=== PATIENT | female | born 1990 | race Hispanic/Latino ===

== ENCOUNTER 2024-12-16 23:21 | Inpatient (IN) | payer MEDICARE, MEDICAID ==
[~2024-12-16] VITALS: Ht 127 cm; Wt 33.6 kg
--- NOTE | 2024-12-16 23:42 | ERN ---
General Chief Complaint: Shortness of Breath Stated Complaint: LOW OXYGEN SATURATIONS Time Seen by MD: 23:23 History of Present Illness Initial Comments Patient comes in with complaint of increasing O2 requirements at baseline to keep her sats up along with runny nose and congestion along with nausea and vomiting and diarrhea for the last two days. Said about two episodes of loose stools low with vomiting for the last two days. Also started having runny nose. Patient has a trach as is dependent on O2 and the vent. Currently on setting of rate of 12, tidal volume of 313/5 pressure support. Typically she uses 3.5 on oxygen concentrator, but today needed to go to 6 L on continuous oxygen to keep her sats in the 90s. Otherwise would drops of the 80s. Patient has Manisha congenital muscular dystrophy. Has been on the vent with a trach since childhood. Wheelchair-bound. Currently does not have a G-tube although has needed to have in the past. No sick contacts. Presents with mom and grandmother. The patient does use Xopenex TID and Pulmicort b.i.d.. Last use Xopenex about 4 hours ago. Allergies: Coded Allergies: No Known Drug Allergies (Unverified Allergy, Unknown, 12/16/24) ROS Dictation Ten systems reviewed and negative except as noted in HPI Physical Exam Physical Exam Dictation GEN: non toxic, wheelchair-bound. Trach. On and. HEENT: atrumatic, PERRL, EOMI, conjunctivae normal NECK: Soft supple nontender Heart RRR, no murmurs Chest: No deformity Lungs: Lungs coarse Ab: Soft nondistended nontender Back: No midline step-offs. : m/s: Four extremities are atrophied. No significant pitting edema in the lower extremities. Psych: Cooperative IVF Sepsis Management IVF Sepsis Management BMI >30kg/m2?: No Sepsis IVF contraindications?: 30cc/kg Results Laboratory and Microbiology Lab and Micro Result Laboratory Tests Test 12/16/24 23:48 12/16/24 23:49 Influenza Type A Antigen Negative For Type A Influenza Type B Antigen Negative For Type B Respiratory Syncytial Virus Rapid negative (NEGATIVE) SARS-CoV-2, RNA, NAAT NEGATIVE SARS CoV-2 White Blood Count 18.5 K/uL (4.8-10.8) H Red Blood Count 4.03 MIL/uL (4.00-5.50) Hemoglobin 12.2 g/dL (12.0-16.0) Hematocrit 39.2 % (36-48) Mean Corpuscular Volume 97.3 fL (79-99) Mean Corpuscular Hemoglobin 30.3 pg (27.0-33.0) Mean Corpuscular Hemoglobin Concent 31.1 g/dL (32.0-36.0) L Red Cell Distribution Width 14.1 % (11.0-15.5) Platelet Count 189 K/uL (130-400) Mean Platelet Volume 11.2 fL (7.5-10.5) H Immature Granulocyte % (Auto) 0.6 % (0-1) Neutrophils (%) (Auto) 88.0 % (40.0-77.0) H Lymphocytes (%) (Auto) 4.4 % (21.0-51.0) L Monocytes (%) (Auto) 6.8 % (3.0-13.0) Eosinophils (%) (Auto) 0.0 % (0.0-8.0) Basophils (%) (Auto) 0.2 % (0.0-5.0) Neutrophils # (Auto) 16.3 K/uL (1.8-7.7) H Lymphocytes # (Auto) 0.8 K/uL (1.0-4.8) L Monocytes # (Auto) 1.3 K/uL (0.1-1.0) H Eosinophils # (Auto) 0.00 K/uL (0.00-0.70) Basophils # (Auto) 0.03 K/uL (0.00-0.20) Absolute Immature Granulocyte (auto 0.11 K/uL (0-1) Nucleated Red Blood Cells 0.0 % (0.0-0.19) White Cell Morphology Comment See comments Sodium Level 130 mmol/L (136-145) L Potassium Level 2.7 mmol/L (3.5-5.1) *L Chloride Level 88 mmol/L (101-111) *L Carbon Dioxide Level 39 mmol/L (21-32) H Blood Urea Nitrogen 9 mg/dL (7-18) Creatinine 0.1 mg/dL (0.5-1.0) L Glomerular Filtration Rate Calc 185 mL/min (>90) Random Glucose 92 mg/dL (70-105) Lactic Acid Level 0.9 mmol/L (0.8-2.5) Total Calcium 9.3 mg/dL (8.5-10.1) Total Bilirubin 0.7 mg/dL (0.2-1.0) Aspartate Amino Transf (AST/SGOT) 12 U/L (10-37) Alanine Aminotransferase (ALT/SGPT) 13 U/L (12-78) Alkaline Phosphatase 86 U/L (50-136) Troponin I High Sensitivity 14 ng/L (4-50) B-Type Natriuretic Peptide 98 pg/mL (0-100) Total Protein 7.6 g/dL (6.0-8.3) Albumin 2.8 g/dL (3.5-5.0) L Procalcitonin 1.66 ng/mL (0.05-0.5) H Serum Test, Qualitative NEGATIVE (NEGATIVE) Labs Reviewed?: Yes EKG/XRAY/US/CT/MRI EKG Comment Sinus tachycardia 124 [place] 149 QRS of 74 QTC of 388 normal axis QRS complexes narrow early R-wave transition nonspecific STT wave changes. Interpretation abnormal X-RAY Comment ADDENDUM: Results were shared by telephone at 02:16 am EST on 12-17-24 and acknowledged by SAPPHIRE Benson. /[place] EXAM: CR Chest, 1 view CLINICAL HISTORY: Shortness of breath. COMPARISON: None provided. FINDINGS: Suboptimal evaluation due to severe scoliosis and patient's positioning. A tracheostomy tube is in place. Generalized right lung volume loss. Moderate pleural effusion on the right side with questionable air-fluid level. Questionable air-filled cystic changes in the right mid to lower zones. Left perihilar airspace disease. The cardiac size is within normal limits. No acute osseous abnormality. Degenerative osseous changes. IMPRESSION: Suboptimal evaluation due to severe scoliosis and the patient's positioning. A tracheostomy tube is in place. Generalized right lung volume loss. Moderate pleural effusion on the right side with questionable air-fluid level is concerning for hydropneumothorax. Questionable air-filled cystic changes in the right mid to lower zones. Left perihilar airspace disease. Recommend a noncontrast CT scan of the chest for further evaluation. /[place] MDM Multiple differentials considered. That is swabs and labs and x-ray. I did discuss with pharmacist we do not have Xopenex. Family brought her own. We will use their Xopenex and Atrovent here On chest x-ray patient looks like she has left the pneumonia in the right pleural effusion. She does have an elevated white count. She has a chronic vent. As such I did put her on cefepime and azithromycin. We will also do a CT for further delineation of known thoracic pathology. Patient will be admitted to ICU to hospitalist. ED Course Orders Procedure Category Date Status Time B-Type Natriuretic LAB 12/16/24 Complete Peptide 23:36 Covid Rna Naat LAB 12/16/24 Complete 23:36 Influenza Type A & B, LAB 12/16/24 Complete Rapid 23:36 Cbc With Differential LAB 12/16/24 Complete 23:36 Comprehensive LAB 12/16/24 Complete Metabolic Panel 23:36 RSV LAB 12/16/24 Complete 23:36 Lactic Acid LAB 12/16/24 Complete 23:36 Procalcitonin LAB 12/16/24 Complete 23:36 Troponin I High LAB 12/16/24 Complete Sensitivity 23:36 Chest 1vw RAD 12/16/24 Resulted 23:36 12 Lead Ekg Tracing- EKG 12/16/24 Logged Technical 23:36 Albuterol 0.083% PHA 12/17/24 Complete 2.5mg/3ml (Proventil 00:00 Ipratropium 0.5 PHA 12/17/24 Complete Mg/2.5 Ml Inh 00:00 Respiratory RT 12/17/24 Transmitted Communication 00:00 Blood Cult CHRIS 12/17/24 In Process 01:01 Lactated Ringers PHA 12/17/24 In Process 1000ml (Lactated 01:30 Potassium Chloride PHA 12/17/24 In Process 20meq/100ml ([place] 01:30 Ct Chest Pe Protocol CT 12/17/24 Logged Wwo Cont 01:01 Cefepime Hcl 1 Gm PHA 12/17/24 Complete Vial (Maxipime 1 Gm Vi 01:30 Azithromycin 500mg+Ns PHA 12/17/24 Complete 250ml (Azithromyci 01:30 Testing, LAB 12/17/24 Complete Serum Hcg 01:15 Edm Admit Bridge Order ADM 12/17/24 Transmitted 01:33 Current Medications Medications (Trade) Dose Ordered Sig/Nighat Route PRN Reason Start Time Stop Time Status Last Admin Dose Admin Albuterol Sulfate (Proventil 0.083% 2.5mg/3ml) 5 mg ONCE ONCE IH 12/17/24 00:00 12/16/24 23:57 DC Azithromycin 250 ml @ 250 mls/hr ONCE ONCE IVPB 12/17/24 01:30 12/17/24 02:29 DC Cefepime HCl (MAXipime 1 GM vial) 1 gm ONCE ONCE IVPB 12/17/24 01:30 12/17/24 01:31 DC 12/17/24 01:34 Ipratropium Zo[place] (AtrovENT UD) 0.5 MG ONCE ONCE IH 12/17/24 00:00 12/17/24 00:01 DC 12/17/24 00:23 Lactated Ringer's 843 ml @ 281 mls/hr ONCE ONCE IV 12/17/24 01:30 12/17/24 04:29 12/17/24 01:34 Potassium Chloride 100 ml @ 50 mls/hr PROTOCOL IV 12/17/24 01:30 01/16/25 01:29 12/17/24 01:37 Vital Signs Date Time Temp Pulse Resp B/P (MAP) Pulse Ox O2 Delivery O2 Flow Rate FiO2 12/17/24 00:38 123 44 12/17/24 00:32 124 20 12/16/24 23:57 98.2 122 20 122/87 93 Ventilator+ 8 100 12/16/24 23:39 98.2 121 15 126/91 95 Trach Collar 6.0 DX & DISP Disposition: Inpatient Departure Impression: Primary Impression: Hypoxia Additional Impressions: Hypokalemia, Leukocytosis, Pneumonia, Pleural effusion, Sepsis Condition: Stable Referrals: TOSHA TURK MD (PCP) SAPPHIRE FIELDS MD Dec 16, 2024 23:42
[2024-12-16 23:56] LABS: IMMATURE GRANULOCYTE ABSOLUTE 0.11 K/uL (0-1); NUCLEATED RED BLOOD CELLS 0.0 % (0.0-0.19); PLATELET COUNT (AUTO) 189 K/uL (130-400); RED BLOOD CELL COUNT(AUTO) 4.03 MIL/uL (4.00-5.50); RED CELL DISTRIBUTION WIDTH 14.1 % (11.0-15.5); WHITE BLOOD COUNT (AUTO) 18.5 K/uL (4.8-10.8)
[2024-12-17] VITALS (86 sets, daily range): BP systolic 69–121; BP diastolic 38–95; PULSE 83–124; RESP 13–41; TEMP 97.7–98.4; O2SAT 90–97
[2024-12-17] MEDS ORDERED: ALBUTEROL 0.083% 2.5 MG/3 ML INH IH ONE
[2024-12-17 00:11] LABS: SARS-CoV-2, RNA, NAAT NEGATIVE SARS CoV-2 (NEGATIVE)
[2024-12-17 00:16] LABS: INFLUENZA TYPE A Negative For Type A (NEGATIVE); INFLUENZA TYPE B Negative For Type B (NEGATIVE); RSV negative (NEGATIVE)
[2024-12-17 00:26] LABS: ASPARTATE AMINOTRANSFERASE 12.0 U/L (10-37); GLUCOSE,RANDOM 92.0 mg/dL (70-105); SODIUM SERUM 130.0 mmol/L (136-145); TOTAL PROTEIN, SERUM 7.6 g/dL (6.0-8.3); UREA NITROGEN, BLOOD 9.0 mg/dL (7-18)
[2024-12-17 00:32] LABS: CREATININE 0.1 mg/dL (0.5-1.0); GLOMERULAR FILTR. RATE CALC 185.0 mL/min (>90)
--- NOTE | 2024-12-17 01:08 | HMCIMG ---
EXAM: CR Chest, 1 view CLINICAL HISTORY: Shortness of breath. COMPARISON: None provided. FINDINGS: Suboptimal evaluation due to severe scoliosis and patient's positioning. A tracheostomy tube is in place. Generalized right lung volume loss. Moderate pleural effusion on the right side with questionable air-fluid level. Questionable air-filled cystic changes in the right mid to lower zones. Left perihilar airspace disease. The cardiac size is within normal limits. No acute osseous abnormality. Degenerative osseous changes. IMPRESSION: Suboptimal evaluation due to severe scoliosis and the patient's positioning. A tracheostomy tube is in place. Generalized right lung volume loss. Moderate pleural effusion on the right side with questionable air-fluid level is concerning for hydropneumothorax. Questionable air-filled cystic changes in the right mid to lower zones. Left perihilar airspace disease. Recommend a noncontrast CT scan of the chest for further evaluation. /[place]
--- NOTE | 2024-12-17 01:47 | HP ---
History of Present Illness Reason for Visit: sob History of Present Illness Ms. Hoffman is a 35-year-old female that was seen and examined today on 12/17/2024. Patient is a good historian of personal health. Patient's grandmother Devika Feliz is at bedside. Patient reports that she came to the emergency department with a chief complaint of shortness of breath. Onset was tonight. Location is lungs. Duration is constant. Character is described as" like I need more oxygen. "Symptoms are mildly alleviated with increasing oxygen on vent settings from home settings. There was no aggravating factors. Patient denies any associated fever or chills. Today in the emergency department WBCs 18.5, left shift neutrophils 88%, potassium 2.7, procalcitonin 1.6, flu negative, COVID negative, chest x-ray shows right pleural effusion with left perihilar disease. Lactic acid is unremarkable. Additionally patient's heart rate was 121 together with the patient's leukocytosis and suspected source of infection being lungs patient met clinical sepsis criteria. Past Medical History ADDITIONAL PAST MEDICAL HISTORY: [Muscular dystrophy, asthma] SOCIAL HISTORY: [Negative for smoking, alcohol use, drug use. Patient is mostly wheelchair-bound and uses an electric wheelchair for mobility. Patient requires assistance with her ADLs. Patient lives with the mom, Savi.] SURGICAL HISTORY: [Tracheostomy, G-tube insertion and removal] Review of Systems General: No Fever, No Chills, No Night Sweats, No Fatigue, No Malaise, No Appetite, No Other HEENT: No Head Aches, No Visual Changes, No Eye Pain, No Ear Pain, No Dysphasia, No Sinus Congestion, No Post Nasal Drip, No Sore Throat, No Other Pulmonary: Dyspnea; No Cough, No Pleuritic Chest Pain, No Other Cardiovascular: No: Chest Pain, Palpitations, Orthopnea, Paroxysmal Noc. Dyspnea, Edema, Lt Headedness, Other Gastrointestinal: No: Nausea, Vomiting, Abdominal Pain, Diarrhea, Constipation, Melena, Hematochezia, Other Genitourinary: No Dysuria, No Frequency, No Incontinence, No Hematuria, No Retention, No Other Musculoskeletal: No: other, neck pain, shoulder pain, arm pain, back pain, hand pain, leg pain, foot pain Skin: No Urticaria, No Rash, No Other Neurological: No: Weakness, Numbness, Incoordination, Change in speech, Confusion, Seizures, Other Allergies: Coded Allergies: No Known Drug Allergies (Unverified Allergy, Unknown, 12/16/24) Exam Vital Signs Vital Signs Date Time Temp Pulse Resp B/P (MAP) Pulse Ox O2 Delivery O2 Flow Rate FiO2 12/17/24 00:38 123 44 12/17/24 00:32 20 12/16/24 23:57 98.2 122/87 93 Ventilator+ 8 General Appearance: Alert, Oriented X3, Cooperative, moderate distress HEENT: Atraumatic, EOMI Respiratory: Other (Positive bilateral rhonchi) Cardiovascular: Normal S1, Normal S2, Other (Positive tachycardia) Abdominal: Normal bowel sounds, Soft, No tenderness Extremities: No edema, Other (Positive weakness to bilateral lower extremities) Skin: Other (Details per nursing assessment no assistance to remove patient from wheelchair and assess skin at this time.) Neuro: Normal speech, Cranial nerves 3-12 NL Psych/Mental Status: Mental status NL, Mood NL, Thoughts/Content NL Assessment/Plan ASSESSMENT: [ Acute hypoxemic respiratory failure, POA (patient currently satting 93% on 8 L of supplemental oxygen per trach on ventilator) Sepsis, POA Pneumonia, POA Leukocytosis, POA Elevated procalcitonin, POA Pleural effusion, POA Ventilator dependence, POA Hypokalemia, POA Suspected hydro pneumothorax, POA Muscular dystrophy Asthma PLAN: [ Admit patient to ICU as inpatient status. Place patient on telemetry monitoring. Patient will be followed by critical care service/pulmonology. Keep patient NPO. Advance diet when okay with pulmonology service. IV fluid maintenance therapy lactated Ringer's 75 mL/HR. DuoNebs twice daily. Continue ventilator settings per emergency room monitors, pulmonology to adjust Supplemental oxygen to maintain O2 saturation greater 92%. Pulmicort twice daily Start systemic antibiotics if recommended by pulmonology service Check sputum culture, follow up with the results Weight based dosing of Zosyn 2.25 g IV every 6 hours Patient received fluid resuscitation in the emergency department with the lactated Ringer's 30 mL/kg Further fluid resuscitation per pulmonology/critical Care recommendations Supportive treatment with guaifenesin, Tylenol Reviewed patient's procalcitonin which was elevated Reviewed patient's lactic acid which was unremarkable Check blood culture, follow up with the results Monitor patient's labs Replace potassium based on patient's weight if next potassium is low on next labs. Albuterol nebulizer 2.5 mg as needed for wheezing or shortness and breath Air mattress Turn patient every 2 hours GI prophylaxis, famotidine DVT prophylaxis, Elder's and SCDs Critical Care Time: I spent ___51___ minutes of critical care time with the patient. I reviewed lab work, change the patient's medication, and coordinated protocol in the event of tachycardia or desaturation. The patient status remains unchanged ADVANCED CARE PLANNING 1. Which of the following were discussed? Hospice Care - Yes Therapeutic options - yes Advance Directives - Yes - patient states he does not have any advance directives in place at this time, however her mother can make decisions for her if she becomes unable. Other discussions - patient wishes to remain a full code 2. Discussed with who? Patient 3. Voluntary nature of this service was explained to the patient? Yes 4. Amount of time spent - ___16 minutes____ 5. Reviewed by Physician? (if this service was performed by NPP) Yes This document was generated in part using voice recognition software, occasional wrong word or sound alike substitutions may have occurred due to the inherent limitations of voice recognition software. Read the chart carefully and recognize using context, where the substitutions have occurred. Although every effort was made to edit the content, band machine operator and typing errors may occur ATTESTATION BY PHYSICIAN I have seen and examined the patient. I reviewed the documentation, medical decision making, and treatment plan as noted by the mid-level provider above. I agree with the findings and plan of care. ] ELO AMBROSIO [facility] Dec 17, 2024 01:47
[2024-12-17] MEDS ORDERED: IOHEXOL-350 75 ML VIAL IV ONE (02:53)
[2024-12-17] MEDS ORDERED: PHARMACY COMMUNICATION MISC SCH (03:00)
[2024-12-17] MEDS ORDERED: ZOSYN 3.375GM+NS 50ML 50 ML IVPB SCH (03:30)
--- NOTE | 2024-12-17 04:24 | HMCIMG ---
EXAM: CTA examination of the chest CLINICAL HISTORY: Hypoxia. TECHNIQUE: Postcontrast thin collimated axial CTA images of the chest were obtained, with sagittal and coronal reformatted images also submitted. A CT scan is done according to ALARA (As Low as Reasonably Achievable). COMPARISON: None provided. FINDINGS: Severe diffuse right lung volume loss with chronic interstitial scarring, cystic and tubular bronchiectasis throughout the right lung. Moderate fluid with an air-fluid level within the right lower lobe cystic bronchiectasis. Mild to moderate chronic interstitial scarring and traction bronchiectasis around the left perihilar region, extending to the upper, lingula, and lower lobes with surrounding infiltrates. There are a few nodular opacities in the left lung, the largest measures up to 1.2 cm in the left upper lobe. Small pleural effusion on the left side. No pneumothorax is evident bilaterally. No pericardial effusion. The cardiac size is within normal limits. Rightward deviated mediastinum. No thoracic aortic aneurysm. Mildly dilated pulmonary trunk measures up to 3.2 cm in diameter. No filling defect or pulmonary thromboembolism. No mediastinal, axillary, or supraclavicular lymphadenopathy. A tracheostomy tube is in place. Incidental multiple nonobstructive renal calculi bilaterally. Uncomplicated colonic diverticula. Severe scoliosis of the thoracic spine. Degenerative osseous changes. IMPRESSION: No pulmonary thromboembolism. Severe diffuse right lung volume loss with chronic interstitial scarring, cystic and tubular bronchiectasis throughout the right lung. Moderate fluid with an air-fluid level within the right lower lobe cystic bronchiectasis. Mild to moderate chronic interstitial scarring and traction bronchiectasis around the left perihilar region, extending to the upper, lingula, and lower lobes with surrounding infiltrates. There are a few nodular opacities in the left lung, the largest measures up to 1.2 cm in the left upper lobe. Small pleural effusion on the left side. Overall, the features concern an infectious or inflammatory process. No pneumothorax is evident bilaterally. Questionable mild pulmonary artery hypertension. /[place]adis
--- NOTE | 2024-12-17 05:06 | NUR ---
CRITICAL CARE CONSULT: CRITICAL CARE TANKERMAN MADE AWARE OF THE CONSULT. UPDATED TANKERMAN ON THE PT'S STATUS AT THIS TIME. PER TANKERMAN, PT CAN START ON ATROVENT INH Q6H, OK TO USE HOME XOLPANEX BREATHING TREATMENT, AND TO ORDER LEVOPHED IV DRIP FOR HYPOTENSION IF NEEDED.
[2024-12-17] MEDS: AZITHROMYCIN 500MG+NS 250ML 250 ML IVPB ONE (05:29)
[2024-12-17] MEDS ORDERED: NOREPINEPHRIN 4MG/NS 250ML 250 ML IV SCH (05:30)
[2024-12-17] MEDS: LACTATED RINGERS 1000ML 1,000 ML IV SCH (05:30)
--- NOTE | 2024-12-17 05:45 | EKG ---
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
--- NOTE | 2024-12-17 05:58 | NUR ---
REPORT GIVEN TO CLAUDINE LEON, PT GOING TO RM [id number]
[2024-12-17] MEDS: ALBUTEROL 0.083% 2.5 MG/3 ML INH IH SCH (06:00)
[2024-12-17] MEDS: BUDESONIDE 0.5 MG/2 ML INH IH SCH (07:27)
[2024-12-17 07:56] LABS: IMMATURE GRANULOCYTE ABSOLUTE 0.10 K/uL (0-1); NUCLEATED RED BLOOD CELLS 0.0 % (0.0-0.19); PLATELET COUNT (AUTO) 113 K/uL (130-400); RED BLOOD CELL COUNT(AUTO) 3.83 MIL/uL (4.00-5.50); RED CELL DISTRIBUTION WIDTH 14.3 % (11.0-15.5); WHITE BLOOD COUNT (AUTO) 15.5 K/uL (4.8-10.8)
[2024-12-17 08:09] LABS: GLUCOSE,RANDOM 65.0 mg/dL (70-105); PHOSPHORUS 2.6 mg/dL (2.5-4.9); SODIUM SERUM 134.0 mmol/L (136-145); UREA NITROGEN, BLOOD 7.0 mg/dL (7-18)
[2024-12-17] MEDS ORDERED: ENOXAPARIN SODIUM 40 MG/0.4 ML SYRINGE SQ SCH (09:00)
[2024-12-17] MEDS ORDERED: FAMOTIDINE 20MG TAB PO SCH (09:00)
--- NOTE | 2024-12-17 10:40 | CONS ---
[facility] CONSULTATION NOTE Date Patient Seen: Dec 17, 2024 Time of Visit: 10:39 Supervising Physician: Dr Vivek Sommers Reason for Consultation: ICU medical management, pulmonology consultation Primary Care Physician: [ ] Outpatient Specialists: [ ] Inpatient Consults: [ ] PROBLEM LIST: Acute hypoxemic respiratory failure Sepsis Community-acquired pneumonia Ventilator dependence Hypokalemia Muscular dystrophy Asthma HPI: Patient is a 35-year-old female with past medical history for muscular dystrophy, asthma, trach and PEG tube, patient over the past several days has been progressively getting more short of breath, patient is on 2 L of O2 at baseline progress to 10 L and decided to present to the emergency department. Viral panel was performed was negative, she had an elevated white count med serous criteria and was treated with fluids and started on antibiotics to include cefepime Zosyn and azithromycin. CT revealed the small left lower lobe pleural effusion along with right lower lobe cystic bronchiectasis. Admitted under the hospitalist service, critical Care and pulmonology Services consulted. PAST MEDICAL HX: see above PAST SURGICAL HX: noncontributory SOCIAL HISTORY: No tobacco, ETOH, or illicit drug use Coded Allergies: No Known Drug Allergies (Unverified Allergy, Unknown, 12/16/24) REVIEW OF SYSTEMS: 12 point ROS reviewed with patient. Pertinent positives mentioned above. Otherwise negative. PHYSICAL EXAM: GENERAL: alert, weak, awake oriented x 3 HEENT: EOMI, Sclera non icteric, moist mucosa NECK: Supple, no JVD, trachea midline LUNGS: Clear breath sounds bilaterally. No wheezes HEART: Regular rate and rhythm. Normal S1 and S2, without murmurs ABD: Abdomen soft, nontender. Bowel sounds present EXT: No clubbing cyanosis or edema NEURO: Alert and oriented to person, follows commands Vital Signs (last 8hr) Date Time Temp Pulse Resp B/P (MAP) Pulse Ox O2 Delivery O2 Flow Rate FiO2 12/17/24 07:43 113 20 12/17/24 07:30 103 20 12/17/24 07:27 103 44 12/17/24 05:15 98.2 113 20 88/50 94 Ventilator+ 10 100 12/17/24 03:34 98.2 121 20 108/77 96 Ventilator+ 8 100 LABS: Hematology Labs: Test 12/17/24 07:48 12/16/24 23:49 Range/Units White Blood Count 15.5 H 4.8-10.8 K/uL Red Blood Count 3.83 L 4.00-5.50 MIL/uL Hemoglobin 11.6 L 12.0-16.0 g/dL Hematocrit 37.4 36-48 % Mean Corpuscular Volume 97.7 79-99 fL Mean Corpuscular Hemoglobin 30.3 27.0-33.0 pg Mean Corpuscular Hemoglobin Concent 31.0 L 32.0-36.0 g/dL Red Cell Distribution Width 14.3 11.0-15.5 % Platelet Count 113 #L 130-400 K/uL Mean Platelet Volume 10.2 7.5-10.5 fL Immature Granulocyte % (Auto) 0.6 0-1 % Neutrophils (%) (Auto) 84.4 H 40.0-77.0 % Lymphocytes (%) (Auto) 4.4 L 21.0-51.0 % Monocytes (%) (Auto) 10.2 3.0-13.0 % Eosinophils (%) (Auto) 0.1 0.0-8.0 % Basophils (%) (Auto) 0.3 0.0-5.0 % Neutrophils # (Auto) 13.0 H 1.8-7.7 K/uL Lymphocytes # (Auto) 0.7 L 1.0-4.8 K/uL Monocytes # (Auto) 1.6 H 0.1-1.0 K/uL Eosinophils # (Auto) 0.01 0.00-0.70 K/uL Basophils # (Auto) 0.04 0.00-0.20 K/uL Absolute Immature Granulocyte (auto 0.10 0-1 K/uL Nucleated Red Blood Cells 0.0 0.0-0.19 % Red Blood Cell Morphology HYPOCHROM CELLS 1+ White Cell Morphology Comment See comments Chemistry Labs: Test 12/17/24 07:48 12/16/24 23:49 Range/Units Sodium Level 134 L 136-145 mmol/L Potassium Level 4.4 3.5-5.1 mmol/L Chloride Level 97 L 101-111 mmol/L Carbon Dioxide Level 33 H 21-32 mmol/L Blood Urea Nitrogen 7 7-18 mg/dL Random Glucose 65 L 70-105 mg/dL Total Calcium 8.6 8.5-10.1 mg/dL Phosphorus Level 2.6 2.5-4.9 mg/dL Magnesium Level 1.40 L 1.80-2.40 mg/dL Lactic Acid Level 0.9 0.8-2.5 mmol/L Total Bilirubin 0.7 0.2-1.0 mg/dL Aspartate Amino Transf (AST/SGOT) 12 10-37 U/L Alanine Aminotransferase (ALT/SGPT) 13 12-78 U/L Alkaline Phosphatase 86 50-136 U/L Troponin I High Sensitivity 14 4-50 ng/L B-Type Natriuretic Peptide 98 0-100 pg/mL Total Protein 7.6 6.0-8.3 g/dL Albumin 2.8 L 3.5-5.0 g/dL Procalcitonin 1.66 H 0.05-0.5 ng/mL Serum Test, Qualitative NEGATIVE NEGATIVE DIAGNOSTICS / RADIOLOGY RESULTS: [ ] PLAN Patient to be admitted to the ICU, RT assessment Supplemental O2 Nebulizer treatments Antibiotics, following cultures Steroids NEURO: Minimize central acting medications as possible. Fall Precautions. Well lighted room through the day and minimize interruptions through the night to prevent acute delirium. PULMONARY: Supplemental 02 as needed Titrate Fio2 to keep Spo2 > or = 90% DuoNebs and CPT as needed IS hourly while awake for pulmonary hygiene Out of bed to chair as tolerated VAP Bundle Vent/BIPAP Settings: [ ] Driving pressure: [ ] P Plat: [ ] Static C: [ ] Static R: [ ] P/F Ratio: [ ] CARDIOVASCULAR: Follow hemodynamics. Titrate vasopressor to keep MAP >65 or systolic blood pressure >95mmHg DIPS: [ ] LINES: [ ] GI & NUTRITION: Continue nutritional support Aspirations precautions Prokinetic agents and laxatives as needed KIDNEYS & ELECTROLYTES: Strict monitoring of intake and output Daily weights Avoid nephrotoxic agents Monitor electrolytes and replace as needed Goal urine output of 30mL/hr or 0.5mL/kg/hr Urine output: [ ] Fluid Balance: [ ] ENDOCRINE: Maintain blood glucose between 100-180 at all times. Insulin sliding scale for blood glucose management INFECTIOUS DISEASE: Trend temperature. Rock-culture if febrile. Micro: [ ] Antibiotics: [ ] HEMATOLOGY & COAGULATION: Monitor H&H. Keep Hgb > 7 Transfuse 1 unit of PRBC for Hgb < 7 Transfuse 1 pack of platelets of platelets < 20, 000 Watch for any signs and symptoms of bleeding SKIN: Pressure ulcer prevention per facility protocol Rehab: PT/OT Prophylaxis: GI: [ ] DVT: [ ] Code Status: Full Resuscitation Disposition: [ ] Other: Total patient care time exceeds 35 minutes excluding all procedures. Case was discussed and seen with my supervising physician. The above plan was formulated and agreed upon. LATISHA SYKES PAC Dec 17, 2024 10:39
[2024-12-17] MEDS ORDERED: ENOXAPARIN SODIUM 30 MG/0.3 ML SQ SCH (11:00)
--- NOTE | 2024-12-17 11:12 | NUR ---
CT ABD/PEL EXAM ON HOLD UNTIL FURTHER NOTICE: PER NURSE, PATIENT UNSTABLE. NURSE WILL CALL WHEN READY.
[2024-12-17] MEDS ORDERED: VANCOMYCIN PROTOCOL PER PHARMACY IV SCH (11:30)
[2024-12-17 12:03] LABS: CREATININE 0.5 mg/dL (0.5-1.0); GLOMERULAR FILTR. RATE CALC 125.0 mL/min (>90)
[2024-12-17] MEDS: VANCOMYCIN 500MG+NS 100ML 100 ML IV SCH (12:57)
--- NOTE | 2024-12-17 14:45 | PN ---
[facility] PROGRESS NOTE Date of Service: Dec 17, 2024 Time of Service: 13:45 SUBJECTIVE: Patient is a 35-year-old female with past medical history for muscular dystrophy, asthma, trach and PEG tube, patient over the past several days has been progressively getting more short of breath, patient is on 2-3 L of O2 at baseline which progressed to 10 L since yesterday and decided to present to the emergency department. Informed about associated diarrhea and vomitings the last 2 days. Patient had a PEG tube in the past, was removed after patient passed bedside swallow and patient tolerates food orally according to the family. Patient's history revealed patient used to walk until 4 years of age and has been wheelchair bound ever since, she developed having respiratory distress 15 years ago when the tracheostomy has been placed, she used to require home oxygen only at nighttime which progressed to requiring oxygen all day , Patient's family informed about COVID infection 2 months ago . Patient's vitals on arrival temperature 98.2, pulse 122, respiratory rate 20, blood pressure 122/87, patient is saturating at 93% on 100% O2 ventilator. Due to concern of pulmonary embolism, CT chest PE has been ordered which did not reveal PE and revealed the small left lower lobe pleural effusion, left upper lobe nodularities suggesting pneumonia, along with right lower lobe cystic bronchiectasis. Viral panel was performed was negative, [place] [address] [place] [address] , platelet count trended down to 113 from 189, sodium improved to 134 from 130, potassium improved to 4.4 from 2.7, magnesium 1.4, creatinine 0.5, BUN. Patient had elevated CRP and procalcitonin, started on antibiotics cefepime, Zosyn and azithromycin. Patient is currently continuing on vancomycin and Zosyn. Patient is continuing on Atrovent q.6 and albuterol q.6 and Pulmicort b.i.d. ge ntle hydration with LR 75 mL/hour . REVIEW OF SYSTEMS CONSTITUTIONAL: Denies fevers, chills, or night sweats. No unintentional weight loss reported. PULMONARY: Admits to shortness of breath. GASTROINTESTINAL: Admits to vomiting ,diarrhea. Denies constipation, or changes in stool consistency or caliber. Denies coffee-ground emesis, hematemesis, hematochezia, or melanotic stools. PHYSICAL EXAM GENERAL APPEARANCE: The patient is awake, alert, and oriented, in no acute cardiopulmonary distress. NEUROLOGICAL: Could not be examined LUNGS: Rales, rhonchi present bilaterally CARDIOVASCULAR: Regular. S1 and S2 normal. No appreciable rubs, murmurs or gallops. ABDOMEN: Soft, nondistended. EXTREMITIES: Non-edematous and not cyanotic. No clubbing. Good capillary refill. SKIN: No skin breakdown. Vital Signs (last 8hr) Date Time Temp Pulse Resp B/P (MAP) Pulse Ox O2 Delivery O2 Flow Rate FiO2 12/17/24 12:00 91 Trach Collar+ 10 60 12/17/24 11:49 113 24 12/17/24 11:22 110 36 85/49 87 Trach Collar 10.0 12/17/24 11:07 110 35 84/47 94 Trach Collar 10.0 12/17/24 11:01 119 44 12/17/24 10:52 118 24 119/95 85 Trach Collar 10.0 12/17/24 10:37 120 37 110/60 90 Trach Collar 10.0 12/17/24 10:22 111 35 121/67 92 Trach Collar 10.0 12/17/24 10:07 120 41 100/59 96 Trach Collar 10.0 12/17/24 09:52 117 40 95/54 91 Trach Collar 10.0 12/17/24 09:37 118 37 97/56 90 Trach Collar 10.0 12/17/24 09:22 113 35 97/62 93 Trach Collar 10.0 12/17/24 09:07 108 13 110/69 93 Trach Collar 10.0 12/17/24 08:52 113 18 97/61 94 Trach Collar 10.0 12/17/24 08:37 111 17 109/70 93 Trach Collar 10.0 12/17/24 08:22 97.9 113 17 94/55 91 Trach Collar 10.0 12/17/24 08:07 107 18 83/53 93 Trach Collar 10.0 12/17/24 07:52 99 18 88/54 94 Trach Collar 10.0 12/17/24 07:43 113 20 12/17/24 07:37 102 19 82/53 96 Trach Collar 10.0 12/17/24 07:30 103 20 12/17/24 07:27 103 44 12/17/24 07:22 107 19 98/62 93 Trach Collar 10.0 12/17/24 07:07 103 16 93/60 93 Trach Collar 10.0 12/17/24 06:52 105 16 114/54 91 Trach Collar 10.0 12/17/24 06:45 91 Trach Collar+ 10 60 LABS: Laboratory: Test 12/17/24 07:48 12/16/24 23:49 12/16/24 23:48 Range/Units White Blood Count 15.5 H 4.8-10.8 K/uL Red Blood Count 3.83 L 4.00-5.50 MIL/uL Hemoglobin 11.6 L 12.0-16.0 g/dL Hematocrit 37.4 36-48 % Mean Corpuscular Volume 97.7 79-99 fL Mean Corpuscular Hemoglobin 30.3 27.0-33.0 pg Mean Corpuscular Hemoglobin Concent 31.0 L 32.0-36.0 g/dL Red Cell Distribution Width 14.3 11.0-15.5 % Platelet Count 113 #L 130-400 K/uL Mean Platelet Volume 10.2 7.5-10.5 fL Immature Granulocyte % (Auto) 0.6 0-1 % Neutrophils (%) (Auto) 84.4 H 40.0-77.0 % Lymphocytes (%) (Auto) 4.4 L 21.0-51.0 % Monocytes (%) (Auto) 10.2 3.0-13.0 % Eosinophils (%) (Auto) 0.1 0.0-8.0 % Basophils (%) (Auto) 0.3 0.0-5.0 % Neutrophils # (Auto) 13.0 H 1.8-7.7 K/uL Lymphocytes # (Auto) 0.7 L 1.0-4.8 K/uL Monocytes # (Auto) 1.6 H 0.1-1.0 K/uL Eosinophils # (Auto) 0.01 0.00-0.70 K/uL Basophils # (Auto) 0.04 0.00-0.20 K/uL Absolute Immature Granulocyte (auto 0.10 0-1 K/uL Nucleated Red Blood Cells 0.0 0.0-0.19 % Red Blood Cell Morphology HYPOCHROM CELLS 1+ Sodium Level 134 L 136-145 mmol/L Potassium Level 4.4 3.5-5.1 mmol/L Chloride Level 97 L 101-111 mmol/L Carbon Dioxide Level 33 H 21-32 mmol/L Blood Urea Nitrogen 7 7-18 mg/dL Creatinine 0.5 0.5-1.0 mg/dL Glomerular Filtration Rate Calc 125 >90 mL/min Random Glucose 65 L 70-105 mg/dL Total Calcium 8.6 8.5-10.1 mg/dL Phosphorus Level 2.6 2.5-4.9 mg/dL Magnesium Level 1.40 L 1.80-2.40 mg/dL Total Creatine Kinase 21 21-232 U/L C-Reactive Protein, Quantitative 238.50 H 0.5-3.0 mg/L White Cell Morphology Comment See comments Lactic Acid Level 0.9 0.8-2.5 mmol/L Total Bilirubin 0.7 0.2-1.0 mg/dL Aspartate Amino Transf (AST/SGOT) 12 10-37 U/L Alanine Aminotransferase (ALT/SGPT) 13 12-78 U/L Alkaline Phosphatase 86 50-136 U/L Troponin I High Sensitivity 14 4-50 ng/L B-Type Natriuretic Peptide 98 0-100 pg/mL Total Protein 7.6 6.0-8.3 g/dL Albumin 2.8 L 3.5-5.0 g/dL Procalcitonin 1.66 H 0.05-0.5 ng/mL Serum Test, Qualitative NEGATIVE NEGATIVE Influenza Type A Antigen Negative For Type A NEGATIVE Influenza Type B Antigen Negative For Type B NEGATIVE Respiratory Syncytial Virus Rapid negative NEGATIVE SARS-CoV-2, RNA, NAAT NEGATIVE SARS CoV-2 NEGATIVE Current Medications Medications (Trade) Dose Ordered Sig/Nighat Route PRN Reason Start Time Stop Time Status Last Admin Dose Admin Acetaminophen (TYLenol 325MG ELIXIR) 400 mg Q6H PRN PO TEMPERATURE GREATER THAN 101.5 12/17/24 11:00 01/16/25 02:59 Acetaminophen (TYLenol 325MG TAB) 650 mg Q6H PRN PO TEMPERATURE GREATER THAN 101.5 12/17/24 03:00 12/17/24 10:35 DC Albuterol (DUOneb) 1 UDVIAL [id number] 12/17/24 06:00 12/17/24 05:14 DC Albuterol Sulfate (Proventil 0.083% 2.5mg/3ml) 2.5 mg [id number] 12/17/24 06:00 01/16/25 05:59 Budesonide (Pulmicort 0.5 Mg/2ml) 0.5 mg BIDRESP IH 12/17/24 06:00 01/16/25 05:59 12/17/24 07:27 0.5 MG Enoxaparin Sodium (Lovenox) 30 mg DAILY SQ 12/17/24 11:00 12/17/24 12:49 DC Enoxaparin Sodium (Lovenox) 40 mg DAILY SQ 12/17/24 09:00 12/17/24 10:27 DC Famotidine (Pepcid 20mg Vial) 20 mg BID IV 12/17/24 21:00 01/16/25 20:59 Famotidine (Pepcid 20mg Tab) 20 mg DAILY PO 12/17/24 09:00 12/17/24 12:49 DC Guaifenesin (RobiTUSSin SUGAR-FREE 100 MG/ 5 ML UDCUP) 400 mg Q4H PRN PO cough 12/17/24 03:00 01/16/25 02:59 Ipratropium [place] (AtrovENT UD) 0.5 MG [id number] IH 12/17/24 06:00 01/16/25 05:59 12/17/24 11:46 0.5 MG Lactated Ringer's 1,000 ml @ 75 mls/hr [id number] IV 12/17/24 03:00 01/16/25 02:59 12/17/24 05:30 75 MLS/HR Magnesium Sulfate 50 ml @ 0 mls/hr PROTOCOL PRN IV mgprotocol 12/17/24 07:00 01/16/25 06:59 Morphine Sulfate (morPHINE 4MG SYG) 2 mg Q4H PRN IVP SEVERE PAIN (7-10) 12/17/24 03:00 12/24/24 02:59 Norepinephrine 250 ml @ 0 mls/hr PROTOCOL IV 12/17/24 05:30 01/16/25 05:29 Ondansetron HCl (zoFRAN 4MG INJ) 4 mg Q6H PRN IV NAUSEA/VOMITING 12/17/24 03:00 01/16/25 02:59 Pharmacy Profile Note (Pharmacy Communication) 1 each ONCE MISC 12/17/24 03:00 12/17/24 03:19 DC Pharmacy Profile Note (Pharmacy Communication) 1 each ONCE MISC 12/17/24 10:30 12/24/24 10:29 Piperacillin Sod/ Tazobactam Sod 50 ml @ 12.5 mls/hr Q8H IVPB 12/17/24 03:30 12/17/24 12:49 DC Piperacillin Sod/ Tazobactam Sod 50 ml @ 12.5 mls/hr Q8H IVPB 12/17/24 15:00 12/27/24 14:59 Potassium Chloride 100 ml @ 50 mls/hr AD PRN IV POTASSIUM PROTOCOL 12/17/24 07:00 01/16/25 06:59 Potassium Chloride 100 ml @ 50 mls/hr PROTOCOL IV 12/17/24 01:30 12/17/24 06:58 DC 12/17/24 01:37 50 MLS/HR Potassium Chloride 100 ml @ 100 mls/hr AD PRN IV POTASSIUM PROTOCOL 12/17/24 07:00 01/16/25 06:59 Vancomycin HCl 100 ml @ 50 mls/hr Q8H IV 12/17/24 12:00 12/27/24 11:59 12/17/24 12:57 50 MLS/HR Vancomycin HCl (Vancomycin Protocol) 1 each AD IV 12/17/24 11:30 12/31/24 11:29 DIAGNOSTICS / RADIOLOGY: PATIENT: KUNAL GE MR#: [id number] : 1990 SEX: F AGE: 34 LOCATION: [facility] ORDER [id number] STATUS: ADM IN REPORT#: [id number] SERVICE 0101 REASON: hypoxia ORDERING PHYSICIAN: SAPPHIRE FIELDS MD PROCEDURE: CHES PE - CT CHEST PE PROTOCOL WWO CONT EXAM: CTA examination of the chest CLINICAL HISTORY: Hypoxia. TECHNIQUE: Postcontrast thin collimated axial CTA images of the chest were obtained, with sagittal and coronal reformatted images also submitted. A CT scan is done according to ALARA (As Low as Reasonably Achievable). COMPARISON: None provided. FINDINGS: Severe diffuse right lung volume loss with chronic interstitial scarring, cystic and tubular bronchiectasis throughout the right lung. Moderate fluid with an air-fluid level within the right lower lobe cystic bronchiectasis. Mild to moderate chronic interstitial scarring and traction bronchiectasis around the left perihilar region, extending to the upper, lingula, and lower lobes with surrounding infiltrates. There are a few nodular opacities in the left lung, the largest measures up to 1.2 cm in the left upper lobe. Small pleural effusion on the left side. No pneumothorax is evident bilaterally. No pericardial effusion. The cardiac size is within normal limits. Rightward deviated mediastinum. No thoracic aortic aneurysm. Mildly dilated pulmonary trunk measures up to 3.2 cm in diameter. No filling defect or pulmonary thromboembolism. No mediastinal, axillary, or supraclavicular lymphadenopathy. A tracheostomy tube is in place. Incidental multiple nonobstructive renal calculi bilaterally. Uncomplicated colonic diverticula. Severe scoliosis of the thoracic spine. Degenerative osseous changes. IMPRESSION: No pulmonary thromboembolism. Severe diffuse right lung volume loss with chronic interstitial scarring, cystic and tubular bronchiectasis throughout the right lung. Moderate fluid with an air-fluid level within the right lower lobe cystic bronchiectasis. Mild to moderate chronic interstitial scarring and traction bronchiectasis around the left perihilar region, extending to the upper, lingula, and lower lobes with surrounding infiltrates. There are a few nodular opacities in the left lung, the largest measures up to 1.2 cm in the left upper lobe. Small pleural effusion on the left side. Overall, the features concern an infectious or inflammatory process. No pneumothorax is evident bilaterally. Questionable mild pulmonary artery hypertension. /[place] DICTATED BY: KATHY SMITH Jr., MD DATE: 12/17/24521 ELECTRONICALLY SIGNED BY: KATHY SMITH Jr., MD DATE: 12/17/24521 ASSESSMENT: Acute hypoxemic respiratory failure Sepsis possibly secondary to Community-acquired pneumonia Suspecting ileus Tracheostomy status, dependent on home oxygen Severe hypokalemia Hypomagnesemia Dehydration Severe scoliosis secondary to muscular dystrophy Asthma PLAN: Acute hypoxemic respiratory failure, Sepsis possibly secondary to Community- acquired pneumonia Received a dose of cefepime and azithromycin, currently continuing on Zosyn and vancomycin We will follow up with the MRSA nasal PCR Patient will continue on Atrovent, Pulmicort, albuterol. We will wean off the oxygen requirement as tolerated Follow up with the respiratory culture received IV fluid according to sepsis protocol in the ED, maintenance fluid with 75 mL/hour LR Suspecting ileus We we will follow up with abdomen/pelvis CT Patient will continue to be NPO Severe hypokalemia, hyponatremia, hypomagnesemia Replace the electrolytes according to protocol We will follow up with daily labs GI prophylaxis with famotidine Further course of hospitalization depending on clinical response. ATTESTATION BY PHYSICIAN I have seen and examined the patient. I reviewed the documentation, medical decision making, and treatment plan as noted by the resident physician above. I agree with the findings and plan of care. CARLA SEO MD, KEERTI K MD Dec 17, 2024 14:45
[2024-12-17] MEDS: ZOSYN 3.375GM+NS 50ML 50 ML IVPB SCH (15:10)
[2024-12-17 15:21] LABS: % IRON SATURATION 8.7 % (22-44); IRON, SERUM 16.0 mcg/dL (50-170)
--- NOTE | 2024-12-17 16:17 | NUR ---
PER NURSE, CT EXAM TO BE DONE TOMORROW 12/18/24.
--- NOTE | 2024-12-17 18:06 | NUR ---
DCP: INITIAL ASSESSMENT Patient lives with parents. She is on vent and has peg tube. Patient has nursing care from [facility] on Tuesdays and X 5 hours. Patient also has PHC services through [facility] Thu-Thu X 8 hours, and Saturdays. Patient has hospital bed, BSC, shower chair, suction machine, vent machine and O2 concentrator/portable. O2 is serviced by [facility]. Patient is total care. PCP is GAGE Lewis. Pharmacy is [facility] from [place]. Patient's mother voiced no safety concerns regarding patient returning home. DCP is home.
[2024-12-17] MEDS ORDERED: FLUT16H NS (18:22)
[2024-12-17] MEDS ORDERED: MONT4TAB19 PO (18:22)
[2024-12-17] MEDS ORDERED: MONT-39 PO (18:42)
[2024-12-17] MEDS ORDERED: FOLI0.8T22 PO (18:42)
[2024-12-17] MEDS: FAMOTIDINE 20MG VIAL IV SCH (20:29)
[2024-12-18] VITALS (58 sets, daily range): BP systolic 67–122; BP diastolic 32–81; PULSE 61–116; RESP 20–78; TEMP 98–98.5; O2SAT 94–98
[2024-12-18 00:28] LABS: ADD UA MICROSCOPIC YES; APPEARANCE,URINE CLEAR (CLEAR); GLUCOSE, URINE (UA) NEGATIVE (NEGATIVE); LEUKOCYTE ESTERASE ,URINE NEGATIVE Leu/uL (NEGATIVE); NITRATE,URINE NEGATIVE (NEGATIVE); OCCULT BLOOD,URINE NEGATIVE (NEGATIVE)
[2024-12-18 00:33] LABS: SQUAMOUS EPITHELIAL CELL,UR MOD /HPF (0-2)
--- NOTE | 2024-12-18 02:15 | NUR ---
pt family (mom) notified me that they suction patient regularly and have their own supplies to use. They stated pt is not abnormally productive. Addendum: 12/18/24 at 0220 by JAMIE IRIZARRY, RT RT Amended: Links added.
[2024-12-18 04:18] LABS: GLOMERULAR FILTR. RATE CALC 185.0 mL/min (>90); SODIUM SERUM 132.0 mmol/L (136-145); UREA NITROGEN, BLOOD 7.0 mg/dL (7-18)
[2024-12-18 04:24] LABS: CREATININE 0.1 mg/dL (0.5-1.0)
[2024-12-18 04:26] LABS: GLUCOSE,RANDOM 29.0 mg/dL (70-105)
[2024-12-18] MEDS: DEXTROSE 50%-WATER 50 ML DISP.SYRIN IV ONE (04:41)
[2024-12-18 04:58] LABS: IMMATURE GRANULOCYTE ABSOLUTE 0.05 K/uL (0-1); NUCLEATED RED BLOOD CELLS 0.0 % (0.0-0.19); PLATELET COUNT (AUTO) 132 K/uL (130-400); RED BLOOD CELL COUNT(AUTO) 3.48 MIL/uL (4.00-5.50); RED CELL DISTRIBUTION WIDTH 14.6 % (11.0-15.5); WHITE BLOOD COUNT (AUTO) 8.2 K/uL (4.8-10.8)
--- NOTE | 2024-12-18 08:04 | NUR ---
PER NURSE, WILL WAIT UNTIL TRANSPORTER IS HERE (10AM) TO BRING PATIENT TO CT FOR EXAM.
--- NOTE | 2024-12-18 11:11 | PN ---
[facility] PROGRESS NOTE Date Patient Seen: Dec 18, 2024 Time of Visit: 11:06 Supervising Physician: Dr Rah Tran Primary Care Physician: [ ] Outpatient Specialists: [ ] Inpatient Consults: [ ] PROBLEM LIST: Acute hypoxemic respiratory failure Sepsis Community-acquired pneumonia Ventilator dependence Hypokalemia Muscular dystrophy Asthma INTERVAL HISTORY: Patient was seen and examined, patient is awake alert and oriented, following commands Nursing reports some hypoglycemia overnight, currently on D10 Sugars are good this morning Patient pending a CT of the abdomen and pelvis Pending a.m. chest x-ray She continues on the trach collar 10 L 60% FiO2 with good sats Plan: Continue antibiotics for pneumonia Following cultures negative thus far Follow pending imaging Patient will require MBS S prior to discharge and resuming diet Total critical care time spent 42 minutes, time excludes any procedures performed or any time spent with education. Patient at a very high risk for decompensation requiring increasingly O2 REVIEW OF SYSTEMS: 12 point ROS reviewed with patient. Pertinent positives mentioned above. Otherwise negative. PHYSICAL EXAM: GENERAL: alert, weak, awake oriented x 3 HEENT: EOMI, Sclera non icteric, moist mucosa NECK: Supple, no JVD, trachea midline LUNGS: Clear breath sounds bilaterally. No wheezes HEART: Regular rate and rhythm. Normal S1 and S2, without murmurs ABD: Abdomen soft, nontender. Bowel sounds present EXT: No clubbing cyanosis or edema NEURO: Alert and oriented to person, follows commands Vital Signs (last 8hr) Date Time Temp Pulse Resp B/P (MAP) Pulse Ox O2 Delivery O2 Flow Rate FiO2 12/18/24 08:56 99 44 12/18/24 07:15 101 22 12/18/24 07:00 98.1 90 32 81/50 96 Trach Collar 10.0 60 12/18/24 06:51 99 22 12/18/24 05:52 93 39 90/60 89 Trach Collar 10.0 60 12/18/24 05:37 92 34 82/45 96 Trach Collar 10.0 60 12/18/24 05:22 101 36 83/46 93 Trach Collar 10.0 60 12/18/24 05:07 109 35 91/56 88 Trach Collar 10.0 60 12/18/24 04:52 99 38 83/51 91 Trach Collar 10.0 60 12/18/24 04:37 105 37 85/50 88 Trach Collar 10.0 60 12/18/24 04:22 103 78 78/49 95 Trach Collar 10.0 60 12/18/24 04:07 98.1 92 32 86/50 96 Trach Collar 10.0 60 12/18/24 04:00 96 Trach Collar+ 10 60 12/18/24 03:52 97 35 71/32 94 Trach Collar 10.0 60 12/18/24 03:37 92 28 79/55 95 Trach Collar 10.0 60 12/18/24 03:25 106 22 12/18/24 03:22 96 36 70/33 94 Trach Collar 10.0 60 12/18/24 03:07 100 35 70/43 94 Trach Collar 10.0 60 LABS: Hematology Labs: Test 12/18/24 04:28 12/17/24 07:48 12/16/24 23:49 Range/Units White Blood Count 8.2 # 4.8-10.8 K/uL Red Blood Count 3.48 L 4.00-5.50 MIL/uL Hemoglobin 10.6 L 12.0-16.0 g/dL Hematocrit 34.7 L 36-48 % Mean Corpuscular Volume 99.7 H 79-99 fL Mean Corpuscular Hemoglobin 30.5 27.0-33.0 pg Mean Corpuscular Hemoglobin Concent 30.5 L 32.0-36.0 g/dL Red Cell Distribution Width 14.6 11.0-15.5 % Platelet Count 132 130-400 K/uL Mean Platelet Volume 10.8 H 7.5-10.5 fL Immature Granulocyte % (Auto) 0.6 0-1 % Neutrophils (%) (Auto) 78.4 H 40.0-77.0 % Lymphocytes (%) (Auto) 9.8 L 21.0-51.0 % Monocytes (%) (Auto) 10.5 3.0-13.0 % Eosinophils (%) (Auto) 0.1 0.0-8.0 % Basophils (%) (Auto) 0.6 0.0-5.0 % Neutrophils # (Auto) 6.4 1.8-7.7 K/uL Lymphocytes # (Auto) 0.8 L 1.0-4.8 K/uL Monocytes # (Auto) 0.9 0.1-1.0 K/uL Eosinophils # (Auto) 0.01 0.00-0.70 K/uL Basophils # (Auto) 0.05 0.00-0.20 K/uL Absolute Immature Granulocyte (auto 0.05 0-1 K/uL Nucleated Red Blood Cells 0.0 0.0-0.19 % Red Blood Cell Morphology HYPOCHROM CELLS 1+ Reticulocyte Count (auto) 0.60743 0.42-2.23 % Immature Reticulocyte Fraction 10.90 H 0.18-0.48 % White Cell Morphology Comment See comments Chemistry Labs: Test 12/18/24 07:28 12/18/24 03:53 12/17/24 07:48 12/16/24 23:49 Range/Units Whole Blood Glucose 143 H 70-110 MG/DL Sodium Level 132 L 136-145 mmol/L Potassium Level 4.1 3.5-5.1 mmol/L Chloride Level 96 L 101-111 mmol/L Carbon Dioxide Level 23 21-32 mmol/L Blood Urea Nitrogen 7 7-18 mg/dL Creatinine 0.1 L 0.5-1.0 mg/dL Glomerular Filtration Rate Calc 185 >90 mL/min Random Glucose 29 #*L 70-105 mg/dL Hemoglobin A1c 5.2 4.0-6.0 % Estimated Average Glucose (eAG) 103 70-126 mg/dL Total Calcium 8.7 8.5-10.1 mg/dL Phosphorus Level 2.6 2.5-4.9 mg/dL Magnesium Level 1.40 L 1.80-2.40 mg/dL Iron Level 16 L 50-170 mcg/dL Total Iron Binding Capacity 183 L 250-450 mcg/dL Percent Iron Saturation 8.7 L 22-44 % Ferritin 208 H 15-150 ng/mL Total Creatine Kinase 21 21-232 U/L C-Reactive Protein, Quantitative 238.50 H 0.5-3.0 mg/L Vitamin B12 Level 1781 H 193-986 pg/mL Lactic Acid Level 0.9 0.8-2.5 mmol/L Total Bilirubin 0.7 0.2-1.0 mg/dL Aspartate Amino Transf (AST/SGOT) 12 10-37 U/L Alanine Aminotransferase (ALT/SGPT) 13 12-78 U/L Alkaline Phosphatase 86 50-136 U/L Troponin I High Sensitivity 14 4-50 ng/L B-Type Natriuretic Peptide 98 0-100 pg/mL Total Protein 7.6 6.0-8.3 g/dL Albumin 2.8 L 3.5-5.0 g/dL Procalcitonin 1.66 H 0.05-0.5 ng/mL Serum Test, Qualitative NEGATIVE NEGATIVE DIAGNOSTICS / RADIOLOGY RESULTS: [ ] PLAN Patient to be admitted to the ICU, RT assessment Supplemental O2 Nebulizer treatments Antibiotics, following cultures Steroids NEURO: Minimize central acting medications as possible. Fall Precautions. Well lighted room through the day and minimize interruptions through the night to prevent acute delirium. PULMONARY: Supplemental 02 as needed Titrate Fio2 to keep Spo2 > or = 90% DuoNebs and CPT as needed IS hourly while awake for pulmonary hygiene Out of bed to chair as tolerated VAP Bundle Vent/BIPAP Settings: [ ] Driving pressure: [ ] P Plat: [ ] Static C: [ ] Static R: [ ] P/F Ratio: [ ] CARDIOVASCULAR: Follow hemodynamics. Titrate vasopressor to keep MAP >65 or systolic blood pressure >95mmHg DIPS: [ ] LINES: [ ] GI & NUTRITION: Continue nutritional support Aspirations precautions Prokinetic agents and laxatives as needed KIDNEYS & ELECTROLYTES: Strict monitoring of intake and output Daily weights Avoid nephrotoxic agents Monitor electrolytes and replace as needed Goal urine output of 30mL/hr or 0.5mL/kg/hr Urine output: [ ] Fluid Balance: [ ] ENDOCRINE: Maintain blood glucose between 100-180 at all times. Insulin sliding scale for blood glucose management INFECTIOUS DISEASE: Trend temperature. Rock-culture if febrile. Micro: [ ] Antibiotics: [ ] HEMATOLOGY & COAGULATION: Monitor H&H. Keep Hgb > 7 Transfuse 1 unit of PRBC for Hgb < 7 Transfuse 1 pack of platelets of platelets < 20, 000 Watch for any signs and symptoms of bleeding SKIN: Pressure ulcer prevention per facility protocol Rehab: PT/OT Prophylaxis: GI: [ ] DVT: [ ] Code Status: Full Resuscitation Disposition: [ ] Case was discussed and seen with my supervising physician. The above plan was formulated and agreed upon. LATISHA SYKES PAC Dec 18, 2024 11:11
[2024-12-18 12:33] LABS: INR 1.43 (0.85-1.15)
[2024-12-18 12:44] LABS: VANCOMYCIN TROUGH 14.5 UG/ML (10.0-20.0)
[2024-12-18] MEDS: DEXTROSE 5%-LACTATED RINGERS 1,000 ML IV SCH (12:55)
[2024-12-18] MEDS ORDERED: MAGNESIUM 4GM PREMIX 100ML IV ONE (14:30)
[2024-12-18] MEDS: MAGNESIUM 2GM PREMIX 50ML 50 ML IV PRN (15:23)
--- NOTE | 2024-12-18 15:37 | PN ---
[facility] PROGRESS NOTE Date of Service: Dec 18, 2024 Time of Service: 15:10 SUBJECTIVE: Patient is a 35-year-old female with past medical history for muscular dystrophy, asthma, trach and PEG tube, patient over the past several days has been progressively getting more short of breath, patient is on 2-3 L of O2 at baseline which progressed to 10 L since yesterday and decided to present to the emergency department. Informed about associated diarrhea and vomitings the last 2 days. Patient had a PEG tube in the past, was removed after patient passed bedside swallow and patient tolerates food orally according to the family. Patient's history revealed patient used to walk until 4 years of age and has been wheelchair bound ever since, she developed having respiratory distress 15 years ago when the tracheostomy has been placed, she used to require home oxygen only at nighttime which progressed to requiring oxygen all day , Patient's family informed about COVID infection 2 months ago . Patient's vitals on arrival temperature 98.2, pulse 122, respiratory rate 20, blood pressure 122/87, patient is saturating at 93% on 100% O2 ventilator. Due to concern of pulmonary embolism, CT chest PE has been ordered which did not reveal PE and revealed the small left lower lobe pleural effusion, left upper lobe nodularities suggesting pneumonia, along with right lower lobe cystic bronchiectasis. Viral panel was performed was negative, [place] [address] [place] [address] , platelet count trended down to 113 from 189, sodium improved to 134 from 130, potassium improved to 4.4 from 2.7, magnesium 1.4, creatinine 0.5, BUN. Patient had elevated CRP and procalcitonin, started on antibiotics cefepime, Zosyn and azithromycin. Patient is currently continuing on vancomycin and Zosyn. Patient is continuing on Atrovent q.6 and albuterol q.6 and Pulmicort b.i.d. ge ntle hydration with LR 75 mL/hour . 12/18/2024 - patient is seen at bedside in room 218, patient is alert, awake, oriented to time place person. Patient is more awake compared to yesterday and was able to participate in conversation. Patient had hypoglycemic episodes overnight possibly secondary to prolonged starvation, started D5 LR. Patient's white blood count trended down from 15.5 to 8.2 . Patient's magnesium at 1.2, sodium 132, potassium 4.1. Anemia panel revealed iron-deficiency anemia with transferrin saturation of 8.7%, CRP will be trended tomorrow again. We are still pending on chest x-ray and CT abdomen pelvis report. Patient is currently hemodynamically stable on 10 L O2 trach collar and saturating at 96%, heart rate 97, respiratory rate 24, blood pressure 122/72. Patient will be started on hydrocortisone 100 mg q.12h for 5 days . Plan to get MBS before diet is started, Patient will be monitored closely. REVIEW OF SYSTEMS CONSTITUTIONAL: Denies fevers, chills, or night sweats. No unintentional weight loss reported. PULMONARY: Admits to shortness of breath. GASTROINTESTINAL: Admits to vomiting ,diarrhea. Denies constipation, or changes in stool consistency or caliber. Denies coffee-ground emesis, hematemesis, hematochezia, or melanotic stools. PHYSICAL EXAM GENERAL APPEARANCE: The patient is awake, alert, and oriented, in no acute cardiopulmonary distress. NEUROLOGICAL: Could not be examined LUNGS: Rales, rhonchi present bilaterally CARDIOVASCULAR: Regular. S1 and S2 normal. No appreciable rubs, murmurs or gallops. ABDOMEN: Soft, nondistended. EXTREMITIES: Non-edematous and not cyanotic. No clubbing. Good capillary refill. SKIN: No skin breakdown. Vital Signs (last 8hr) Date Time Temp Pulse Resp B/P (MAP) Pulse Ox O2 Delivery O2 Flow Rate FiO2 12/18/24 13:07 96 33 88/51 96 Trach Collar 10.0 60 12/18/24 12:07 97 24 122/72 96 Trach Collar 10.0 60 12/18/24 11:07 98.2 89 35 109/71 97 Trach Collar 10.0 60 12/18/24 11:00 97 44 12/18/24 11:00 97 Trach Collar+ 10 60 12/18/24 10:37 89 36 109/69 96 Trach Collar 10.0 60 12/18/24 10:27 91 35 114/75 96 Trach Collar 10.0 60 12/18/24 09:37 87 33 97/61 98 Trach Collar 10.0 60 12/18/24 09:07 87 26 117/81 98 Trach Collar 10.0 60 12/18/24 08:56 99 44 12/18/24 08:37 79 29 91/63 98 Trach Collar 10.0 60 12/18/24 08:07 89 23 94/60 99 Trach Collar 10.0 60 12/18/24 07:15 101 22 LABS: Laboratory: Test 12/18/24 12:01 12/18/24 07:28 12/18/24 04:28 12/18/24 03:53 Range/Units Prothrombin Time 14.6 H 9.6-11.6 SEC Prothromb Time International Ratio 1.43 H 0.85-1.15 Activated Partial Thromboplast Time 29.4 26.3-35.5 SEC Whole Blood Ketones Quantitative 2.2 H 0.0-0.6 mmol/L Magnesium Level 1.20 L 1.80-2.40 mg/dL Thyroid Stimulating Hormone (TSH) 1.28 0.36-3.74 uIU/mL Vancomycin Level Trough 14.5 10.0-20.0 UG/ML Whole Blood Glucose 143 H 70-110 MG/DL White Blood Count 8.2 # 4.8-10.8 K/uL Red Blood Count 3.48 L 4.00-5.50 MIL/uL Hemoglobin 10.6 L 12.0-16.0 g/dL Hematocrit 34.7 L 36-48 % Mean Corpuscular Volume 99.7 H 79-99 fL Mean Corpuscular Hemoglobin 30.5 27.0-33.0 pg Mean Corpuscular Hemoglobin Concent 30.5 L 32.0-36.0 g/dL Red Cell Distribution Width 14.6 11.0-15.5 % Platelet Count 132 130-400 K/uL Mean Platelet Volume 10.8 H 7.5-10.5 fL Immature Granulocyte % (Auto) 0.6 0-1 % Neutrophils (%) (Auto) 78.4 H 40.0-77.0 % Lymphocytes (%) (Auto) 9.8 L 21.0-51.0 % Monocytes (%) (Auto) 10.5 3.0-13.0 % Eosinophils (%) (Auto) 0.1 0.0-8.0 % Basophils (%) (Auto) 0.6 0.0-5.0 % Neutrophils # (Auto) 6.4 1.8-7.7 K/uL Lymphocytes # (Auto) 0.8 L 1.0-4.8 K/uL Monocytes # (Auto) 0.9 0.1-1.0 K/uL Eosinophils # (Auto) 0.01 0.00-0.70 K/uL Basophils # (Auto) 0.05 0.00-0.20 K/uL Absolute Immature Granulocyte (auto 0.05 0-1 K/uL Nucleated Red Blood Cells 0.0 0.0-0.19 % Sodium Level 132 L 136-145 mmol/L Potassium Level 4.1 3.5-5.1 mmol/L Chloride Level 96 L 101-111 mmol/L Carbon Dioxide Level 23 21-32 mmol/L Blood Urea Nitrogen 7 7-18 mg/dL Creatinine 0.1 L 0.5-1.0 mg/dL Glomerular Filtration Rate Calc 185 >90 mL/min Random Glucose 29 #*L 70-105 mg/dL Hemoglobin A1c 5.2 4.0-6.0 % Estimated Average Glucose (eAG) 103 70-126 mg/dL Total Calcium 8.7 8.5-10.1 mg/dL Test 12/17/24 22:00 12/17/24 07:48 12/16/24 23:49 12/16/24 23:48 Range/Units Urine Color YELLOW YELLOW Urine Appearance CLEAR CLEAR Urine pH 6.0 5.0-8.0 Urine Specific [place] 1.050 H 1.001-1.031 Urine Protein 20 H NEGATIVE mg/dL Urine Glucose (UA) NEGATIVE NEGATIVE mg/dL Urine Ketones 60 H NEGATIVE mg/dL Urine Occult Blood NEGATIVE NEGATIVE Urine Nitrate NEGATIVE NEGATIVE Urine Bilirubin NEGATIVE NEGATIVE mg/dL Urine Urobilinogen 0.2 0.2-1.0 mg/dL Urine Leukocyte Esterase NEGATIVE NEGATIVE [place]/uL Urine RBC 6-10 H 0-1 /HPF Urine WBC 6-10 H 0-1 /HPF Urine Squamous Epithelial Cells MOD 0-2 /HPF Urine Bacteria FEW None Seen /HPF Red Blood Cell Morphology HYPOCHROM CELLS 1+ Reticulocyte Count (auto) 0.93500 0.42-2.23 % Immature Reticulocyte Fraction 10.90 H 0.18-0.48 % Phosphorus Level 2.6 2.5-4.9 mg/dL Iron Level 16 L 50-170 mcg/dL Total Iron Binding Capacity 183 L 250-450 mcg/dL Percent Iron Saturation 8.7 L 22-44 % Ferritin 208 H 15-150 ng/mL Total Creatine Kinase 21 21-232 U/L C-Reactive Protein, Quantitative 238.50 H 0.5-3.0 mg/L Vitamin B12 Level 1781 H 193-986 pg/mL White Cell Morphology Comment See comments Lactic Acid Level 0.9 0.8-2.5 mmol/L Total Bilirubin 0.7 0.2-1.0 mg/dL Aspartate Amino Transf (AST/SGOT) 12 10-37 U/L Alanine Aminotransferase (ALT/SGPT) 13 12-78 U/L Alkaline Phosphatase 86 50-136 U/L Troponin I High Sensitivity 14 4-50 ng/L B-Type Natriuretic Peptide 98 0-100 pg/mL Total Protein 7.6 6.0-8.3 g/dL Albumin 2.8 L 3.5-5.0 g/dL Procalcitonin 1.66 H 0.05-0.5 ng/mL Serum Test, Qualitative NEGATIVE NEGATIVE Influenza Type A Antigen Negative For Type A NEGATIVE Influenza Type B Antigen Negative For Type B NEGATIVE Respiratory Syncytial Virus Rapid negative NEGATIVE SARS-CoV-2, RNA, NAAT NEGATIVE SARS CoV-2 NEGATIVE Current Medications Medications (Trade) Dose Ordered Sig/[place] Route PRN Reason Start Time Stop Time Status Last Admin Dose Admin Acetaminophen (TYLenol 325MG ELIXIR) 400 mg Q6H PRN PO TEMPERATURE GREATER THAN 101.5 12/17/24 11:00 01/16/25 02:59 Acetaminophen (TYLenol 325MG TAB) 650 mg Q6H PRN PO TEMPERATURE GREATER THAN 101.5 12/17/24 03:00 12/17/24 10:35 DC Albuterol (DUOneb) 1 UDVIAL [id number] 12/17/24 06:00 12/17/24 05:14 DC Albuterol Sulfate (Proventil 0.083% 2.5mg/3ml) 2.5 mg [id number] IH 12/17/24 06:00 01/16/25 05:59 Budesonide (Pulmicort 0.5 Mg/2ml) 0.5 mg BIDRESP IH 12/17/24 06:00 01/16/25 05:59 12/18/24 06:55 0.5 MG Dextrose/Lactated Ringer's 1,000 ml @ 75 mls/hr [id number] IV 12/18/24 11:00 01/17/25 10:59 12/18/24 12:55 75 MLS/HR Enoxaparin Sodium (Lovenox) 30 mg DAILY SQ 12/17/24 11:00 12/17/24 12:49 DC Enoxaparin Sodium (Lovenox) 40 mg DAILY SQ 12/17/24 09:00 12/17/24 10:27 DC Famotidine (Pepcid 20mg Vial) 20 mg BID IV 12/17/24 21:00 01/16/25 20:59 12/18/24 09:21 20 MG Famotidine (Pepcid 20mg Tab) 20 mg DAILY PO 12/17/24 09:00 12/17/24 12:49 DC Guaifenesin (RobiTUSSin SUGAR-FREE 100 MG/ 5 ML UDCUP) 400 mg Q4H PRN PO cough 12/17/24 03:00 01/16/25 02:59 Ipratropium [place] (AtrovENT UD) 0.5 MG [id number] IH 12/17/24 06:00 01/16/25 05:59 12/18/24 11:46 0.5 MG Lactated Ringer's 1,000 ml @ 75 mls/hr [id number] IV 12/17/24 03:00 12/18/24 11:00 DC 12/18/24 05:42 75 MLS/HR Magnesium Sulfate 50 ml @ 0 mls/hr PROTOCOL PRN IV mgprotocol 12/17/24 07:00 01/16/25 06:59 Morphine Sulfate (morPHINE 4MG SYG) 2 mg Q4H PRN IVP SEVERE PAIN (7-10) 12/17/24 03:00 12/24/24 02:59 12/18/24 01:26 2 MG Norepinephrine 250 ml @ 0 mls/hr PROTOCOL IV 12/17/24 05:30 01/16/25 05:29 Ondansetron HCl (zoFRAN 4MG INJ) 4 mg Q6H PRN IV NAUSEA/VOMITING 12/17/24 03:00 01/16/25 02:59 Pharmacy Profile Note (Pharmacy Communication) 1 each ONCE MISC 12/17/24 03:00 12/17/24 03:19 DC Pharmacy Profile Note (Pharmacy Communication) 1 each ONCE MISC 12/17/24 10:30 12/24/24 10:29 Piperacillin Sod/ Tazobactam Sod 50 ml @ 12.5 mls/hr Q8H IVPB 12/17/24 03:30 12/17/24 12:49 DC Piperacillin Sod/ Tazobactam Sod 50 ml @ 12.5 mls/hr Q8H IVPB 12/17/24 15:00 12/27/24 14:59 12/18/24 06:19 12.5 MLS/HR Potassium Chloride 100 ml @ 50 mls/hr AD PRN IV POTASSIUM PROTOCOL 12/17/24 07:00 01/16/25 06:59 Potassium Chloride 100 ml @ 50 mls/hr PROTOCOL IV 12/17/24 01:30 12/17/24 06:58 DC 12/17/24 01:37 50 MLS/HR Potassium Chloride 100 ml @ 100 mls/hr AD PRN IV POTASSIUM PROTOCOL 12/17/24 07:00 01/16/25 06:59 Vancomycin HCl 100 ml @ 50 mls/hr Q8H IV 12/17/24 12:00 12/27/24 11:59 12/18/24 13:34 50 MLS/HR Vancomycin HCl (Vancomycin Protocol) 1 each AD IV 12/17/24 11:30 12/31/24 11:29 DIAGNOSTICS / RADIOLOGY: [ ] ASSESSMENT: Acute hypoxemic respiratory failure Sepsis possibly secondary to Community-acquired pneumonia Suspecting ileus Tracheostomy status, dependent on home oxygen Severe hypokalemia resolved Hypomagnesemia Dehydration Severe scoliosis secondary to muscular dystrophy Asthma hypoglycemia possibly secondary to starvation PLAN: Acute hypoxemic respiratory failure, Sepsis possibly secondary to Community- acquired pneumonia currently continuing on Zosyn and vancomycin day 2 We will follow up with the MRSA nasal PCR Patient will continue on Atrovent, Pulmicort, albuterol. We will wean off the oxygen requirement as tolerated currently on 10L O2 Follow up with the respiratory culture received IV fluid according to sepsis protocol in the ED followup on the ABG Started on Hydrocortisone 100mg Q12 for 5 days , will taper gradually after end of the course followup with chest X ray. Severe hypokalemia, hyponatremia, hypomagnesemia Replace the electrolytes according to protocol hypoglycemia possibly secondary to starvation started on D5 LR at 75ml/hr we will followup with an MBSS to check for any risk of aspiration before starting diet We will follow up with daily labs GI prophylaxis with famotidine Pending on CT abdomen/pelvis report Further course of hospitalization depending on clinical response. ATTESTATION BY PHYSICIAN I have seen and examined the patient. I reviewed the documentation, medical decision making, and treatment plan as noted by the resident physician above. I agree with the findings and plan of care. CARLA SEO MD, KEERTI K MD Dec 18, 2024 15:37
--- NOTE | 2024-12-18 17:32 | HMCIMG ---
EXAM: CR Chest, 2 View. CLINICAL HISTORY: DISTENTION COMPARISON: CT images from December 17, 2024 FINDINGS: Tracheostomy tube overlies the trachea. Enteric tube terminates within the stomach. Multifocal airspace disease bilaterally is presumed to reflect an infectious and/or inflammatory process. Small to moderate bilateral effusions (right greater than left). No pneumothorax. Heart size inadequately assessed on this examination. Pulmonary vascular congestion. IMPRESSION: 1. Bilateral multifocal airspace disease, likely infectious or inflammatory. 2. Small to moderate bilateral pleural effusions, right greater than left. 3. Pulmonary vascular congestion. /[place]
--- NOTE | 2024-12-18 17:33 | HMCIMG ---
EXAM: CR Abdomen, 2 View. CLINICAL HISTORY: DISTENTION COMPARISON: None provided. FINDINGS: BOWEL: The bowel gas pattern is within normal limits. PERITONEUM/SOFT TISSUES: No free air evident. No pathologic appearing calcification. BONES: No acute osseous abnormality. Excreted contrast within a distended bladder. IMPRESSION: 1. No acute abdominal findings. /[place]
[2024-12-18] MEDS: PHARMACY COMMUNICATION MISC SCH (21:15)
[2024-12-19] VITALS (42 sets, daily range): BP systolic 70–117; BP diastolic 37–78; PULSE 43–111; RESP 4–49; TEMP 98.4–99.3; O2SAT 95–99
[2024-12-19 05:34] LABS: IMMATURE GRANULOCYTE ABSOLUTE 0.03 K/uL (0-1); NUCLEATED RED BLOOD CELLS 0.0 % (0.0-0.19); PLATELET COUNT (AUTO) 125 K/uL (130-400); RED BLOOD CELL COUNT(AUTO) 3.19 MIL/uL (4.00-5.50); RED CELL DISTRIBUTION WIDTH 14.4 % (11.0-15.5); WHITE BLOOD COUNT (AUTO) 5.3 K/uL (4.8-10.8)
[2024-12-19 05:48] LABS: ASPARTATE AMINOTRANSFERASE 11.0 U/L (10-37); GLUCOSE,RANDOM 140.0 mg/dL (70-105); SODIUM SERUM 137.0 mmol/L (136-145); TOTAL PROTEIN, SERUM 5.8 g/dL (6.0-8.3); UREA NITROGEN, BLOOD 1.0 mg/dL (7-18)
[2024-12-19 06:05] LABS: GLOMERULAR FILTR. RATE CALC 185.0 mL/min (>90)
[2024-12-19 06:06] LABS: CREATININE 0.1 mg/dL (0.5-1.0)
--- NOTE | 2024-12-19 06:22 | HMCIMG ---
EXAM: CR Chest, 1 View. CLINICAL HISTORY: SOB COMPARISON: Chest CR and CT dated 12/17/2024 FINDINGS: Suboptimal evaluation due to severe scoliosis. A tracheostomy tube is in place. Generalized right lung volume loss. Decreased aeration in both lungs. Moderate pleural effusion on the right side with questionable air-fluid level. Subtle visualization of the air-filled cystic changes in the right mid to lower zones. Stable left perihilar airspace disease. Heart size is inadequately assessed on this examination. IMPRESSION: Decreased aeration of both lungs since the prior. The remainder of the exam remains unchanged. /[place]
--- NOTE | 2024-12-19 06:25 | HMCIMG ---
EXAM: CR Chest, 3 View. CLINICAL HISTORY: RETAKE CXR COMPARISON: CR chest dated 12/18/2024 FINDINGS: The tracheostomy tube overlies the trachea. The enteric tube terminates within the stomach. Multifocal airspace disease bilaterally is relatively stable. Redemonstrated slightly worsened small to moderate bilateral effusions (right greater than left). No pneumothorax. Heart size is inadequately assessed on this examination. Stable pulmonary vascular congestion. IMPRESSION: 1. Stable multifocal airspace disease bilaterally. 2. Slightly worsened small to moderate bilateral pleural effusions, right greater than left. 3. Stable pulmonary vascular congestion. /[place]
[2024-12-19] MEDS ORDERED: PHARMACY COMMUNICATION MISC SCH (09:00)
--- NOTE | 2024-12-19 09:06 | PN ---
[facility] PROGRESS NOTE Date Patient Seen: Dec 19, 2024 Time of Visit: 09:04 Supervising Physician: Rah Tran MD Primary Care Physician: Satish Mcguire Outpatient Specialists: [ ] Inpatient Consults: DR Sommers, Primary team : [facility] PROBLEM LIST: Acute on chronic hypoxemic respiratory failure, Ventilator dependence Sepsis Community-acquired pneumonia VS aspiration pneumonia Ninety retention status post García catheter placement on 12/19/24 Hypokalemia Muscular dystrophy Asthma Cachexia BMI 21.1 INTERVAL HISTORY: Patient is awake alert and oriented x3. Pending wanting a show on her phone. Mother and grandmother at the bedside. She is hemodynamically stable in no apparent distress. Continues with home vent with settings of assist control volume control tidal volume of 300 respiratory rate of 12 FiO2 of 60% and PEEP of 5. She has been tolerating well. Patient's mother has been refusing respiratory suctioned. No further episodes of hypoglycemia. This morning potassium was 2.7 on correction 3.5 magnesium 1.40 covered per protocol. Creatinine is good 0.1 GFR 185 glucose 140 mg/dL this morning. White count is normal H&H stable platelet count is [address] abdomen and pelvis shows multiple bilateral renal calculi with no hydronephrosis. Over distended urinary bladder. No bowel obstruction inflammation or constipation. Moderate left and loculated right pleural effusion. Consolidation of the visualized sections of both lungs with loculated air and fluid collection in the right lower thorax. This findings are stable when compared with a chest CT dated 12/17/28. Plan: Continue antibiotics for pneumonia Following cultures negative thus far insert FC Patient will require MBS S prior to discharge and resuming diet CM for dc planning would benefit from LTAC REVIEW OF SYSTEMS: 12 point ROS reviewed with patient. Pertinent positives mentioned above. Otherwise negative. PHYSICAL EXAM: GENERAL: alert, weak, awake oriented x 3 HEENT: EOMI, Sclera non icteric, moist mucosa NECK: Supple, no JVD, trachea midline LUNGS: Clear breath sounds bilaterally. No wheezes HEART: Regular rate and rhythm. Normal S1 and S2, without murmurs ABD: Abdomen soft, nontender. Bowel sounds present EXT: No clubbing cyanosis or edema NEURO: Alert and oriented to person, follows commands Vital Signs (last 8hr) Date Time Temp Pulse Resp B/P (MAP) Pulse Ox O2 Delivery O2 Flow Rate FiO2 12/19/24 08:00 98.4 59 21 92/58 98 Trach Collar 10.0 60 12/19/24 08:00 98 Trach Collar+ 10 60 12/19/24 07:30 56 26 99 12/19/24 07:17 67 21 98/70 97 Trach Collar 10.0 60 12/19/24 07:15 61 21 98 12/19/24 07:07 64 18 85/50 98 Trach Collar 10.0 60 12/19/24 07:00 58 18 98 12/19/24 06:37 56 30 12/19/24 06:32 53 30 12/19/24 06:25 53 44 12/19/24 03:37 58 18 75/41 96 Trach Collar 10.0 60 12/19/24 03:22 55 44 12/19/24 03:07 43 30 82/46 97 Trach Collar 10.0 60 12/19/24 03:00 98 Trach Collar+ 10 60 12/19/24 02:37 51 35 82/37 98 Trach Collar 10.0 60 12/19/24 02:07 51 21 91/56 97 Trach Collar 10.0 60 12/19/24 01:37 47 31 95/55 98 Trach Collar 10.0 60 12/19/24 01:07 64 33 112/78 99 Trach Collar 10.0 60 LABS: Hematology Labs: Test 12/19/24 05:24 Range/Units White Blood Count 5.3 4.8-10.8 K/uL Red Blood Count 3.19 L 4.00-5.50 MIL/uL Hemoglobin 9.7 L 12.0-16.0 g/dL Hematocrit 30.4 L 36-48 % Mean Corpuscular Volume 95.3 79-99 fL Mean Corpuscular Hemoglobin 30.4 27.0-33.0 pg Mean Corpuscular Hemoglobin Concent 31.9 L 32.0-36.0 g/dL Red Cell Distribution Width 14.4 11.0-15.5 % Platelet Count 125 L 130-400 K/uL Mean Platelet Volume 10.6 H 7.5-10.5 fL Immature Granulocyte % (Auto) 0.6 0-1 % Neutrophils (%) (Auto) 84.3 H 40.0-77.0 % Lymphocytes (%) (Auto) 8.3 L 21.0-51.0 % Monocytes (%) (Auto) 6.4 3.0-13.0 % Eosinophils (%) (Auto) 0.0 0.0-8.0 % Basophils (%) (Auto) 0.4 0.0-5.0 % Neutrophils # (Auto) 4.5 1.8-7.7 K/uL Lymphocytes # (Auto) 0.4 L 1.0-4.8 K/uL Monocytes # (Auto) 0.3 0.1-1.0 K/uL Eosinophils # (Auto) 0.00 0.00-0.70 K/uL Basophils # (Auto) 0.02 0.00-0.20 K/uL Absolute Immature Granulocyte (auto 0.03 0-1 K/uL Nucleated Red Blood Cells 0.0 0.0-0.19 % Chemistry Labs: Test 12/19/24 05:24 12/18/24 20:10 12/18/24 12:01 12/18/24 07:28 Range/Units Sodium Level 137 136-145 mmol/L Potassium Level 2.7 *L 3.5-5.1 mmol/L Chloride Level 101 101-111 mmol/L Carbon Dioxide Level 27 21-32 mmol/L Blood Urea Nitrogen 1 L 7-18 mg/dL Creatinine 0.1 L 0.5-1.0 mg/dL Glomerular Filtration Rate Calc 185 >90 mL/min Random Glucose 140 H 70-105 mg/dL Total Calcium 7.9 L 8.5-10.1 mg/dL Total Bilirubin 0.6 0.2-1.0 mg/dL Aspartate Amino Transf (AST/SGOT) 11 10-37 U/L Alanine Aminotransferase (ALT/SGPT) 7 L 12-78 U/L Alkaline Phosphatase 65 50-136 U/L Total Protein 5.8 L 6.0-8.3 g/dL Albumin 2.0 L 3.5-5.0 g/dL Magnesium Level 2.40 1.80-2.40 mg/dL Whole Blood Ketones Quantitative 2.2 H 0.0-0.6 mmol/L Thyroid Stimulating Hormone (TSH) 1.28 0.36-3.74 uIU/mL Whole Blood Glucose 143 H 70-110 MG/DL Test 12/18/24 03:53 Range/Units Hemoglobin A1c 5.2 4.0-6.0 % Estimated Average Glucose (eAG) 103 70-126 mg/dL Coagulation Labs: Test 12/18/24 12:01 Range/Units Prothrombin Time 14.6 H 9.6-11.6 SEC Prothromb Time International Ratio 1.43 H 0.85-1.15 Activated Partial Thromboplast Time 29.4 26.3-35.5 SEC DIAGNOSTICS / RADIOLOGY RESULTS: [ ] [facility] [address] [place] [address] IMAGING REPORT Signed PATIENT: KUNAL GE MR#: [id number] : 1990 SEX: F AGE: 34 LOCATION: 2CH ORDER 2300 STATUS: ADM IN REPORT#: [id number] SERVICE [id number] REASON: h/o Diarrhea and vomiting , also concern for Ileus ORDERING PHYSICIAN: ROMEO OLIVEIRA MD PROCEDURE: ABD PEL WO - CT ABDOMEN/PELVIS W/O CONTRAST EXAMINATION: CT Abdomen and Pelvis without contrast. CLINICAL HISTORY: History of diarrhea and vomiting , also concern for Ileus. TECHNIQUE: Multiple contiguous axial CT images were obtained through the abdomen and pelvis. Coronal and sagittal reconstructions were also obtained. COMPARISON: None. FINDINGS: Included chest reveals moderate left pleural effusion. Loculated right pleural effusion with an air-fluid level. Consolidation of the visualized sections of both lungs. These findings are stable when compared with the chest CT dated 12/17/2024. Right renal upper calyceal calculus measuring 4 mm. Multiple left renal mid and lower calyceal calculi measuring about 5mm to 7 mm. The liver, gallbladder, spleen, pancreas, and adrenal glands appear within normal limits. Fecal matter filled large bowel loops. Rest of the bowel loops are normal in caliber without evidence of obstruction, ileus, or obvious bowel wall thickening. Urinary bladder is over distended with normal wall thickening. Uterus is normal in caliber. Both ovaries are normal in caliber. There is no ascites or lymphadenopathy. No acute or suspicious osseous abnormality. There are multilevel mild degenerative spondylotic changes of the spine. There is severe thoracic scoliosis with convexity towards the left. IMPRESSION: Multiple bilateral renal calculi. No hydronephrosis. Overdistended urinary bladder. No bowel obstruction or inflammation. Constipation. Moderate left and loculated right pleural effusion. Consolidation of the visualized sections of both lungs with a loculated air and fluid collection in the right lower thorax. These findings are stable when compared with the chest CT dated 12/17/2024. /[place] DICTATED BY: TIM WOOD MD DATE: 12/19/24 1024 ELECTRONICALLY SIGNED BY: TIM WOOD MD DATE: 12/19/24 1024 PLAN Insert García catheter for urinary retention Maintain O2 sats above 92% Nebulizer treatments Xopenex home nebs per family request Continue IV Antibiotics, following cultures Patient will require MBSS Steroids NEURO: Minimize central acting medications as possible. Fall Precautions. Well lighted room through the day and minimize interruptions through the night to prevent acute delirium. PULMONARY: Supplemental 02 as needed Titrate Fio2 to keep Spo2 > or = 90% DuoNebs and CPT as needed IS hourly while awake for pulmonary hygiene Out of bed to chair as tolerated CARDIOVASCULAR: Follow hemodynamics. Titrate vasopressor to keep MAP >65 or systolic blood pressure >95mmHg DRIPS: None LINES: PIV GI & NUTRITION: Continue nutritional support Aspirations precautions Prokinetic agents and laxatives as needed KIDNEYS & ELECTROLYTES: Strict monitoring of intake and output Daily weights Avoid nephrotoxic agents Monitor electrolytes and replace as needed Goal urine output of 30mL/hr or 0.5mL/kg/hr Urine output: [ ] Fluid Balance: [ ] ENDOCRINE: Maintain blood glucose between 100-180 at all times. Insulin sliding scale for blood glucose management INFECTIOUS DISEASE: Trend temperature. Rock-culture if febrile. Micro: [ ] Antibiotics: [ ] Zosyn Vancomycin HEMATOLOGY & COAGULATION: Monitor H&H. Keep Hgb > 7 Transfuse 1 unit of PRBC for Hgb < 7 Transfuse 1 pack of platelets of platelets < 20, 000 Watch for any signs and symptoms of bleeding SKIN: Pressure ulcer prevention per facility protocol Rehab: PT/OT Prophylaxis: GI: protonix DVT: Lovenox Code Status: Full Resuscitation Disposition: ICU Case was discussed and seen with my supervising physician. The above plan was formulated and agreed upon. ATTESTATION BY PHYSICIAN I have evaluated the patient chart, medical records, and spoke with appropriate staff. I reviewed the documentation, medical decision making, and treatment plan as noted by the mid-level provider above. I agree with the findings and plan of care. Rah Tran MD, [facility] Dec 19, 2024 09:06
--- NOTE | 2024-12-19 09:09 | EKG ---
[facility] Test Date: 2024-12-19 Test Time: 00:39:06 Pat Name: KUNAL GE Department: [facility] Room: 218 1 Gender: F Curtain Cleaner: anya : 1990 Requested By: LATISHA LEMONS Order Number: [id number] Reading MD: Juliocesar Tompkins Measurements Intervals [place] Rate: 53 P: 16 MO: 125 QRS: 64 QRSD: 81 T: 38 QT: 409 QTc: 400 Interpretive Statements SINUS BRADYCARDIA Consider left ventricular hypertrophy Compared to ECG 12/16/2024 23:52:36 Sinus tachycardia no longer present Electronically Signed On 12-20-2024 13:31:49 PAGEANT DIRECTOR by Juliocesar Tompkins Please click the below link to view image of tracing.
[2024-12-19] MEDS: PHENOL 177 ML BOTTLE PO PRN (09:22)
--- NOTE | 2024-12-19 09:25 | HMCIMG ---
EXAMINATION: CT Abdomen and Pelvis without contrast. CLINICAL HISTORY: History of diarrhea and vomiting , also concern for Ileus. TECHNIQUE: Multiple contiguous axial CT images were obtained through the abdomen and pelvis. Coronal and sagittal reconstructions were also obtained. COMPARISON: None. FINDINGS: Included chest reveals moderate left pleural effusion. Loculated right pleural effusion with an air-fluid level. Consolidation of the visualized sections of both lungs. These findings are stable when compared with the chest CT dated 12/17/2024. Right renal upper calyceal calculus measuring 4 mm. Multiple left renal mid and lower calyceal calculi measuring about 5mm to 7 mm. The liver, gallbladder, spleen, pancreas, and adrenal glands appear within normal limits. Fecal matter filled large bowel loops. Rest of the bowel loops are normal in caliber without evidence of obstruction, ileus, or obvious bowel wall thickening. Urinary bladder is over distended with normal wall thickening. Uterus is normal in caliber. Both ovaries are normal in caliber. There is no ascites or lymphadenopathy. No acute or suspicious osseous abnormality. There are multilevel mild degenerative spondylotic changes of the spine. There is severe thoracic scoliosis with convexity towards the left. IMPRESSION: Multiple bilateral renal calculi. No hydronephrosis. Overdistended urinary bladder. No bowel obstruction or inflammation. Constipation. Moderate left and loculated right pleural effusion. Consolidation of the visualized sections of both lungs with a loculated air and fluid collection in the right lower thorax. These findings are stable when compared with the chest CT dated 12/17/2024. /Miladis
--- NOTE | 2024-12-19 13:59 | PN ---
[facility] PROGRESS NOTE Date of Service: Dec 19, 2024 Time of Service: 13:59 SUBJECTIVE: Patient is a 35-year-old female with past medical history for muscular dystrophy, asthma, trach and PEG tube, patient over the past several days has been progressively getting more short of breath, patient is on 2-3 L of O2 at baseline which progressed to 10 L since yesterday and decided to present to the emergency department. Informed about associated diarrhea and vomitings the last 2 days. Patient had a PEG tube in the past, was removed after patient passed bedside swallow and patient tolerates food orally according to the family. Patient's history revealed patient used to walk until 4 years of age and has been wheelchair bound ever since, she developed having respiratory distress 15 years ago when the tracheostomy has been placed, she used to require home oxygen only at nighttime which progressed to requiring oxygen all day , Patient's family informed about COVID infection 2 months ago . Patient's vitals on arrival temperature 98.2, pulse 122, respiratory rate 20, blood pressure 122/87, patient is saturating at 93% on 100% O2 ventilator. Due to concern of pulmonary embolism, CT chest PE has been ordered which did not reveal PE and revealed the small left lower lobe pleural effusion, left upper lobe nodularities suggesting pneumonia, along with right lower lobe cystic bronchiectasis. Viral panel was performed was negative, [place] [address] [place] [address] , platelet count trended down to 113 from 189, sodium improved to 134 from 130, potassium improved to 4.4 from 2.7, magnesium 1.4, creatinine 0.5, BUN. Patient had elevated CRP and procalcitonin, started on antibiotics cefepime, Zosyn and azithromycin. Patient is currently continuing on vancomycin and Zosyn. Patient is continuing on Atrovent q.6 and albuterol q.6 and Pulmicort b.i.d. g entle hydration with LR 75 mL/hour . 12/18/2024 - patient is seen at bedside in room 218, patient is alert, awake, oriented to time place person. Patient is more awake compared to yesterday and was able to participate in conversation. Patient had hypoglycemic episodes overnight possibly secondary to prolonged starvation, started D5 LR. Patient's white blood count trended down from 15.5 to 8.2 . Patient's magnesium at 1.2, sodium 132, potassium 4.1. Anemia panel revealed iron-deficiency anemia with transferrin saturation of 8.7%, CRP will be trended tomorrow again. We are still pending on chest x-ray and CT abdomen pelvis report. Patient is currently hemodynamically stable on 10 L O2 trach collar and saturating at 96%, heart rate 97, respiratory rate 24, blood pressure 122/72. Patient will be started on hydrocortisone 100 mg q.12h for 5 days . Plan to get MBS before diet is started, Patient will be monitored closely. 12/19/2024: Patient was seen and evaluated bedside in room 218. Patient is awake, alert, oriented x3 and currently on 10 L O2 trach collar and saturating at 98%. CT abdomen and pelvis showed multiple bilateral renal calculi, no hydronephrosis, over distended urinary bladder. Morning lab showed potassium of 2.7, replacing potassium per protocol. Patient blood pressure was fluctuating in 80s, 90s systolic and midodrine 5 mg t.i.d. was started. Patient is cur rently on NPO, we will get a modified barium swallow study before starting diet. We also requested case management evaluation as patient might need IV antibiotics, oxygen support on discharge. REVIEW OF SYSTEMS CONSTITUTIONAL: Denies fevers, chills, or night sweats. No unintentional weight loss reported. PULMONARY: Admits to shortness of breath. GASTROINTESTINAL: Admits to vomiting ,diarrhea. Denies constipation, or changes in stool consistency or caliber. Denies coffee-ground emesis, hematemesis, he matochezia, or melanotic stools. PHYSICAL EXAM GENERAL APPEARANCE: The patient is awake, alert, and oriented, in no acute cardiopulmonary distress. NEUROLOGICAL: Could not be examined LUNGS: Rales, rhonchi present bilaterally CARDIOVASCULAR: Regular. S1 and S2 normal. No appreciable rubs, murmurs or gallops. ABDOMEN: Soft, nondistended. EXTREMITIES: Non-edematous and not cyanotic. No clubbing. Good capillary refill. SKIN: No skin breakdown. Vital Signs (last 8hr) Date Time Temp Pulse Resp B/P (MAP) Pulse Ox O2 Delivery O2 Flow Rate FiO2 12/19/24 12:04 63 60 12/19/24 12:03 61 30 12/19/24 12:00 98 Trach Collar+ 10 60 12/19/24 11:02 63 21 104/68 99 Trach Collar 10.0 60 12/19/24 10:13 59 31 12/19/24 10:12 59 60 12/19/24 10:00 52 12 117/60 99 Trach Collar 10.0 60 12/19/24 09:30 59 21 100/68 99 Trach Collar 10.0 60 12/19/24 09:00 66 14 111/75 99 Trach Collar 10.0 60 12/19/24 08:00 98.4 59 21 92/58 98 Trach Collar 10.0 60 12/19/24 08:00 98 Trach Collar+ 10 60 12/19/24 07:30 56 26 99 12/19/24 07:17 67 21 98/70 97 Trach Collar 10.0 60 12/19/24 07:15 61 21 98 12/19/24 07:07 64 18 85/50 98 Trach Collar 10.0 60 12/19/24 07:00 58 18 98 12/19/24 06:37 56 30 12/19/24 06:32 53 30 12/19/24 06:25 53 60 LABS: Laboratory: Test 12/19/24 10:50 12/19/24 08:53 12/19/24 05:24 12/18/24 12:01 Range/Units Vancomycin Level Trough 13.7 10.0-20.0 UG/ML Potassium Level 3.5 3.5-5.1 mmol/L Magnesium Level 1.40 L 1.80-2.40 mg/dL White Blood Count 5.3 4.8-10.8 K/uL Red Blood Count 3.19 L 4.00-5.50 MIL/uL Hemoglobin 9.7 L 12.0-16.0 g/dL Hematocrit 30.4 L 36-48 % Mean Corpuscular Volume 95.3 79-99 fL Mean Corpuscular Hemoglobin 30.4 27.0-33.0 pg Mean Corpuscular Hemoglobin Concent 31.9 L 32.0-36.0 g/dL Red Cell Distribution Width 14.4 11.0-15.5 % Platelet Count 125 L 130-400 K/uL Mean Platelet Volume 10.6 H 7.5-10.5 fL Immature Granulocyte % (Auto) 0.6 0-1 % Neutrophils (%) (Auto) 84.3 H 40.0-77.0 % Lymphocytes (%) (Auto) 8.3 L 21.0-51.0 % Monocytes (%) (Auto) 6.4 3.0-13.0 % Eosinophils (%) (Auto) 0.0 0.0-8.0 % Basophils (%) (Auto) 0.4 0.0-5.0 % Neutrophils # (Auto) 4.5 1.8-7.7 K/uL Lymphocytes # (Auto) 0.4 L 1.0-4.8 K/uL Monocytes # (Auto) 0.3 0.1-1.0 K/uL Eosinophils # (Auto) 0.00 0.00-0.70 K/uL Basophils # (Auto) 0.02 0.00-0.20 K/uL Absolute Immature Granulocyte (auto 0.03 0-1 K/uL Nucleated Red Blood Cells 0.0 0.0-0.19 % Sodium Level 137 136-145 mmol/L Chloride Level 101 101-111 mmol/L Carbon Dioxide Level 27 21-32 mmol/L Blood Urea Nitrogen 1 L 7-18 mg/dL Creatinine 0.1 L 0.5-1.0 mg/dL Glomerular Filtration Rate Calc 185 >90 mL/min Random Glucose 140 H 70-105 mg/dL Total Calcium 7.9 L 8.5-10.1 mg/dL Total Bilirubin 0.6 0.2-1.0 mg/dL Aspartate Amino Transf (AST/SGOT) 11 10-37 U/L Alanine Aminotransferase (ALT/SGPT) 7 L 12-78 U/L Alkaline Phosphatase 65 50-136 U/L Total Protein 5.8 L 6.0-8.3 g/dL Albumin 2.0 L 3.5-5.0 g/dL Prothrombin Time 14.6 H 9.6-11.6 SEC Prothromb Time International Ratio 1.43 H 0.85-1.15 Activated Partial Thromboplast Time 29.4 26.3-35.5 SEC Whole Blood Ketones Quantitative 2.2 H 0.0-0.6 mmol/L Thyroid Stimulating Hormone (TSH) 1.28 0.36-3.74 uIU/mL Test 12/18/24 07:28 12/18/24 03:53 12/17/24 22:00 Range/Units Whole Blood Glucose 143 H 70-110 MG/DL Hemoglobin A1c 5.2 4.0-6.0 % Estimated Average Glucose (eAG) 103 70-126 mg/dL Urine Color YELLOW YELLOW Urine Appearance CLEAR CLEAR Urine pH 6.0 5.0-8.0 Urine Specific [place] 1.050 H 1.001-1.031 Urine Protein 20 H NEGATIVE mg/dL Urine Glucose (UA) NEGATIVE NEGATIVE mg/dL Urine Ketones 60 H NEGATIVE mg/dL Urine Occult Blood NEGATIVE NEGATIVE Urine Nitrate NEGATIVE NEGATIVE Urine Bilirubin NEGATIVE NEGATIVE mg/dL Urine Urobilinogen 0.2 0.2-1.0 mg/dL Urine Leukocyte Esterase NEGATIVE NEGATIVE [place]/uL Urine RBC 6-10 H 0-1 /HPF Urine WBC 6-10 H 0-1 /HPF Urine Squamous Epithelial Cells MOD 0-2 /HPF Urine Bacteria FEW None Seen /HPF Current Medications Medications (Trade) Dose Ordered Sig/Nighat Route PRN Reason Start Time Stop Time Status Last Admin Dose Admin Acetaminophen (TYLenol 325MG ELIXIR) 400 mg Q6H PRN PO TEMPERATURE GREATER THAN 101.5 12/17/24 11:00 01/16/25 02:59 Acetaminophen (TYLenol 325MG TAB) 650 mg Q6H PRN PO TEMPERATURE GREATER THAN 101.5 12/17/24 03:00 12/17/24 10:35 DC Albuterol (DUOneb) 1 UDVIAL [id number] 12/17/24 06:00 12/17/24 05:14 DC Albuterol Sulfate (Proventil 0.083% 2.5mg/3ml) 2.5 mg [id number] 12/17/24 06:00 12/19/24 09:02 DC 12/18/24 23:48 2.5 MG Budesonide (Pulmicort 0.5 Mg/2ml) 0.5 mg BIDRESP IH 12/17/24 06:00 01/16/25 05:59 12/19/24 06:31 0.5 MG Dextrose/Lactated Ringer's 1,000 ml @ 75 mls/hr [id number] IV 12/18/24 11:00 12/19/24 09:03 DC 12/18/24 12:55 75 MLS/HR Enoxaparin Sodium (Lovenox) 30 mg DAILY SQ 12/17/24 11:00 12/17/24 12:49 DC Enoxaparin Sodium (Lovenox) 40 mg DAILY SQ 12/17/24 09:00 12/17/24 10:27 DC Famotidine (Pepcid 20mg Vial) 20 mg BID IV 12/17/24 21:00 01/16/25 20:59 12/19/24 08:24 20 MG Famotidine (Pepcid 20mg Tab) 20 mg DAILY PO 12/17/24 09:00 12/17/24 12:49 DC Guaifenesin (RobiTUSSin SUGAR-FREE 100 MG/ 5 ML UDCUP) 400 mg Q4H PRN PO cough 12/17/24 03:00 01/16/25 02:59 Home Med (Home Medication) LEVALBUTEROL 0.63MG/3ML NEB TID PRN PO SOB/WHEEZING 12/19/24 09:30 01/18/25 09:29 12/19/24 11:59 1 EACH Hydrocortisone Sodium Succinate (Solu-corTEF 100MG) 100 mg Q12H IV 12/18/24 15:30 12/23/24 17:00 12/19/24 03:26 100 MG Ipratropium [place] (AtrovENT UD) 0.5 MG [id number] IH 12/17/24 06:00 12/19/24 09:02 DC 12/19/24 06:31 0.5 MG Lactated Ringer's 1,000 ml @ 75 mls/hr [id number] IV 12/17/24 03:00 12/18/24 11:00 DC 12/18/24 05:42 75 MLS/HR Magnesium Sulfate 50 ml @ 0 mls/hr PROTOCOL PRN IV mgprotocol 12/17/24 07:00 01/16/25 06:59 12/19/24 10:33 25 MLS/HR Midodrine (PROAMatine 5 MG TABLET) 5 mg TID PO 12/19/24 14:00 01/18/25 13:59 Morphine Sulfate (morPHINE 2MG SYG) 0.5 mg Q4H PRN IVP SEVERE PAIN (7-10) 12/19/24 09:00 12/26/24 08:59 Morphine Sulfate (morPHINE 4MG SYG) 2 mg Q4H PRN IVP SEVERE PAIN (7-10) 12/17/24 03:00 12/19/24 08:56 DC 12/18/24 01:26 2 MG Norepinephrine 250 ml @ 0 mls/hr PROTOCOL IV 12/17/24 05:30 12/19/24 08:56 DC Ondansetron HCl (zoFRAN 4MG INJ) 4 mg Q6H PRN IV NAUSEA/VOMITING 12/17/24 03:00 01/16/25 02:59 Pharmacy Profile Note (Pharmacy Communication) 1 each ONCE MISC 12/19/24 09:00 12/19/24 09:18 DC Pharmacy Profile Note (Pharmacy Communication) 1 each ONCE MISC 12/17/24 03:00 12/17/24 03:19 DC Pharmacy Profile Note (Pharmacy Communication) 1 each ONCE MISC 12/17/24 10:30 12/19/24 08:52 DC Phenol (Sore Throat [place]) 1 SPRAY Q4H PRN PO SORE THROAT 12/19/24 09:30 01/18/25 09:29 12/19/24 09:22 1 SPRY Piperacillin Sod/ Tazobactam Sod 50 ml @ 12.5 mls/hr Q8H IVPB 12/17/24 03:30 12/17/24 12:49 DC Piperacillin Sod/ Tazobactam Sod 50 ml @ 12.5 mls/hr Q8H IVPB 12/17/24 15:00 12/27/24 14:59 12/19/24 06:22 12.5 MLS/HR Potassium Chloride 100 ml @ 50 mls/hr AD PRN IV POTASSIUM PROTOCOL 12/17/24 07:00 01/16/25 06:59 Potassium Chloride 100 ml @ 50 mls/hr PROTOCOL IV 12/17/24 01:30 12/17/24 06:58 DC 12/17/24 01:37 50 MLS/HR Potassium Chloride 100 ml @ 100 mls/hr AD PRN IV POTASSIUM PROTOCOL 12/17/24 07:00 01/16/25 06:59 12/19/24 12:45 100 MLS/HR Vancomycin HCl 100 ml @ 50 mls/hr Q8H IV 12/17/24 12:00 12/27/24 11:59 12/19/24 12:41 50 MLS/HR Vancomycin HCl (Vancomycin Protocol) 1 each AD IV 12/17/24 11:30 12/31/24 11:29 DIAGNOSTICS / RADIOLOGY: [ ] [facility] [address] [place] [address] IMAGING REPORT Signed PATIENT: KUNAL GE MR#: [id number] : 1990 SEX: F AGE: 34 LOCATION: 2CH ORDER 2300 STATUS: ADM IN REPORT#: [id number] SERVICE 1059 REASON: h/o Diarrhea and vomiting , also concern for Ileus ORDERING PHYSICIAN: ROMEO OLIVEIRA MD PROCEDURE: ABD PEL WO - CT ABDOMEN/PELVIS W/O CONTRAST EXAMINATION: CT Abdomen and Pelvis without contrast. CLINICAL HISTORY: History of diarrhea and vomiting , also concern for Ileus. TECHNIQUE: Multiple contiguous axial CT images were obtained through the abdomen and pelvis. Coronal and sagittal reconstructions were also obtained. COMPARISON: None. FINDINGS: Included chest reveals moderate left pleural effusion. Loculated right pleural effusion with an air-fluid level. Consolidation of the visualized sections of both lungs. These findings are stable when compared with the chest CT dated 12/17/2024. Right renal upper calyceal calculus measuring 4 mm. Multiple left renal mid and lower calyceal calculi measuring about 5mm to 7 mm. The liver, gallbladder, spleen, pancreas, and adrenal glands appear within normal limits. Fecal matter filled large bowel loops. Rest of the bowel loops are normal in caliber without evidence of obstruction, ileus, or obvious bowel wall thickening. Urinary bladder is over distended with normal wall thickening. Uterus is normal in caliber. Both ovaries are normal in caliber. There is no ascites or lymphadenopathy. No acute or suspicious osseous abnormality. There are multilevel mild degenerative spondylotic changes of the spine. There is severe thoracic scoliosis with convexity towards the left. IMPRESSION: Multiple bilateral renal calculi. No hydronephrosis. Overdistended urinary bladder. No bowel obstruction or inflammation. Constipation. Moderate left and loculated right pleural effusion. Consolidation of the visualized sections of both lungs with a loculated air and fluid collection in the right lower thorax. These findings are stable when compared with the chest CT dated 12/17/2024. /[place] DICTATED BY: TIM WOOD MD DATE: 12/19/24 1024 ELECTRONICALLY SIGNED BY: TIM WOOD MD DATE: 12/19/24 1024 ASSESSMENT: Acute hypoxemic respiratory failure Sepsis possibly secondary to Community-acquired pneumonia Suspecting ileus Tracheostomy status, dependent on home oxygen Severe hypokalemia resolved Hypomagnesemia Dehydration Severe scoliosis secondary to muscular dystrophy Asthma hypoglycemia possibly secondary to starvation PLAN: Acute hypoxemic respiratory failure, Sepsis possibly secondary to Community- acquired pneumonia currently continuing on Zosyn and vancomycin day 3 We will wean off the oxygen requirement as tolerated currently on 10L O2 Follow up with the respiratory culture received IV fluid according to sepsis protocol in the ED Started on Hydrocortisone 100mg Q12 for 5 days , will taper gradually after end of the course followup with chest X ray. Severe hypokalemia, hyponatremia, hypomagnesemia Replace the electrolytes according to protocol hypoglycemia possibly secondary to starvation started on D5 LR at 75ml/hr on 12/18/2024 we will followup with an MBSS to check for any risk of aspiration before starting diet We will follow up with daily labs GI prophylaxis with famotidine Further course of hospitalization depending on clinical response. ATTESTATION BY PHYSICIAN I have seen and examined the patient. I reviewed the documentation, medical dec ision making, and treatment plan as noted by the resident physician above. I agree with the findings and plan of care. CARLA SEO MD, ADIL SHAH QUADRI MD Dec 19, 2024 13:59
--- NOTE | 2024-12-19 15:40 | NUR ---
MBSS COMPLETED. No aspiration/no penetrations. RECOMMENDATIONS: Minced and moist solids, thin liquids, and pills crushed with pureed as tolerated. NOTES: Pt completed exam with trach collar on vent with nurse Alexis, respiratory therapist (Bart), and patient's family to assist if needed. Pt with NG tube in place. DIAGNOSTIC FINDINGS: Pt presented with mild oropharyngeal dysphagia characterized by decreased oral motor strength, ROM, and coordination; decreased DIRECTOR LOSS PREVENTION closure; and decreased hyo-laryngeal elevation/excursion likely due to trach tube in place evidenced by decreased bolus formation and manipulation, tongue pumping, mild residue in oral cavity, nasopharynx and valleculae. No aspirations or penetrations observed during study. Mild reflux observed. Limited view due to shoulder artifact. [employer] reviewed results and recommendations with patient/family and nurse Vanesa. [employer] educated patient on risks and consequences of aspiration. Speech therapy not warranted at this time. Mild oropharyngeal dysphagia likely due to muscular dystrophy and best managed with a modified diet and compensatory strategies. All questions answered. Addendum: 12/20/[address] [facility]RIC GABRIEL Amended: Links added.
--- NOTE | 2024-12-19 16:31 | NUR ---
jazlyn truck guard made aware of speech therapy recommendations, as per angie pt may have ng tube dc, start diet as recommended, decrease hydrocortisone to 50mg as scheduled and midrodine to prn. pt to have hurt.
[2024-12-20] VITALS (32 sets, daily range): BP systolic 85–139; BP diastolic 45–101; PULSE 56–100; RESP 5–34; TEMP 98–98.5; O2SAT 95–97
--- NOTE | 2024-12-20 00:39 | HMCIMG ---
EXAM: XR ABDOMEN, 1 VIEW CLINICAL INFORMATION: Abdominal distension; history of nasogastric tube to intermittent wall suction. TECHNIQUE: Supine anteroposterior view of the abdomen was obtained. COMPARISON: Abdominal radiograph, 1 view, December 18, 2024 at 15:44 EST. FINDINGS: BOWEL: The bowel gas pattern is within normal limits. PERITONEUM/SOFT TISSUES: No free intraperitoneal air is identified, and no pathologic calcification is seen. OSSEOUS STRUCTURES: No acute osseous abnormality is identified. IMPRESSION: * Nonobstructive bowel gas pattern without pneumoperitoneum. * Comparison: Compared to abdominal radiograph dated December 18, 2024 at 15:44 EST, the present study shows the current findings as described above. /[place]
[2024-12-20 05:12] LABS: NUCLEATED RED BLOOD CELLS 0.0 % (0.0-0.19); PLATELET COUNT (AUTO) 175.0 K/uL (130-400); RED BLOOD CELL COUNT(AUTO) 3.39 MIL/uL (4.00-5.50); RED CELL DISTRIBUTION WIDTH 14.6 % (11.0-15.5); WHITE BLOOD COUNT (AUTO) 8.0 K/uL (4.8-10.8)
[2024-12-20 05:33] LABS: ASPARTATE AMINOTRANSFERASE 16.0 U/L (10-37); CREATININE 0.2 mg/dL (0.5-1.0); GLOMERULAR FILTR. RATE CALC 156.0 mL/min (>90); GLUCOSE,RANDOM 116.0 mg/dL (70-105); SODIUM SERUM 140.0 mmol/L (136-145); TOTAL PROTEIN, SERUM 6.3 g/dL (6.0-8.3); UREA NITROGEN, BLOOD 4.0 mg/dL (7-18)
[2024-12-20] MEDS: ENOXAPARIN SODIUM 30 MG/0.3 ML SQ SCH (08:03)
--- NOTE | 2024-12-20 09:45 | HMCIMG ---
MODIFIED BARIUM SWALLOW W CINE REASON: high risk of aspiration FINDINGS: Fluoroscopic assistance was provided to the speech pathologist while performing examination. For findings and dietary recommendations, refer to speech pathologist's report. FLUORO TIME: 3.2 minutes IMPRESSION: Modified barium swallow as described.
--- NOTE | 2024-12-20 09:52 | PN ---
[facility] PROGRESS NOTE Date Patient Seen: Dec 20, 2024 Time of Visit: 09:52 Supervising Physician: Sonya Thomas MD Primary Care Physician: Satish Mcguire Outpatient Specialists: [ ] Inpatient Consults: DR Sommers, Primary team : Love PROBLEM LIST: Acute on chronic hypoxemic respiratory failure, Ventilator dependence Pseudomonas Aeruginosa Bilateral Pneumonia Ninety retention status post García catheter placement on 12/19/24 Hypokalemia Muscular dystrophy Asthma Cachexia BMI 21.1 INTERVAL HISTORY: NO Major overnight events. Continues on home vent with home baseline settings. Pt is aaox3. denies chest pain , palpitations , sob or N/V. Chest XR improving decreased consolidation to keven lungs noted. pt tolerating diet well. passed her MBSS. Plan: Continue antibiotics for pneumonia Following cultures negative thus far Patient will require MBS S prior to discharge and resuming diet CM for dc planning would benefit from LTAC REVIEW OF SYSTEMS: 12 point ROS reviewed with patient. Pertinent positives mentioned above. Otherwise negative. PHYSICAL EXAM: GENERAL: alert, weak, awake oriented x 3 HEENT: EOMI, Sclera non icteric, moist mucosa NECK: Supple, no JVD, trachea midline LUNGS: Clear breath sounds bilaterally. No wheezes HEART: Regular rate and rhythm. Normal S1 and S2, without murmurs ABD: Abdomen soft, nontender. Bowel sounds present EXT: No clubbing cyanosis or edema NEURO: Alert and oriented to person, follows commands Vital Signs (last 8hr) Date Time Temp Pulse Resp B/P (MAP) Pulse Ox O2 Delivery O2 Flow Rate FiO2 12/20/24 08:00 98.1 66 15 91/68 Trach Collar 40 12/20/24 08:00 40 12/20/24 05:37 98 5 104/61 87 Trach Collar 40 12/20/24 04:00 40 12/20/24 04:00 96 Trach Collar+ 10 60 12/20/24 04:00 98.4 12/20/24 03:37 59 14 93/53 93 Trach Collar 40 12/20/24 02:32 77 40 12/20/24 02:31 84 15 LABS: Hematology Labs: Test 12/20/24 04:52 12/19/24 05:24 Range/Units White Blood Count 8.0 # 4.8-10.8 K/uL Red Blood Count 3.39 L 4.00-5.50 MIL/uL Hemoglobin 10.2 L 12.0-16.0 g/dL Hematocrit 31.2 L 36-48 % Mean Corpuscular Volume 92.0 79-99 fL Mean Corpuscular Hemoglobin 30.1 27.0-33.0 pg Mean Corpuscular Hemoglobin Concent 32.7 32.0-36.0 g/dL Red Cell Distribution Width 14.6 11.0-15.5 % Platelet Count 175 # 130-400 K/uL Mean Platelet Volume 10.9 H 7.5-10.5 fL Nucleated Red Blood Cells 0.0 0.0-0.19 % Immature Granulocyte % (Auto) 0.6 0-1 % Neutrophils (%) (Auto) 84.3 H 40.0-77.0 % Lymphocytes (%) (Auto) 8.3 L 21.0-51.0 % Monocytes (%) (Auto) 6.4 3.0-13.0 % Eosinophils (%) (Auto) 0.0 0.0-8.0 % Basophils (%) (Auto) 0.4 0.0-5.0 % Neutrophils # (Auto) 4.5 1.8-7.7 K/uL Lymphocytes # (Auto) 0.4 L 1.0-4.8 K/uL Monocytes # (Auto) 0.3 0.1-1.0 K/uL Eosinophils # (Auto) 0.00 0.00-0.70 K/uL Basophils # (Auto) 0.02 0.00-0.20 K/uL Absolute Immature Granulocyte (auto 0.03 0-1 K/uL Chemistry Labs: Test 12/20/24 04:52 12/18/24 12:01 Range/Units Sodium Level 140 136-145 mmol/L Potassium Level 2.9 *L 3.5-5.1 mmol/L Chloride Level 103 101-111 mmol/L Carbon Dioxide Level 30 21-32 mmol/L Blood Urea Nitrogen 4 L 7-18 mg/dL Creatinine 0.2 L 0.5-1.0 mg/dL Glomerular Filtration Rate Calc 156 >90 mL/min Random Glucose 116 H 70-105 mg/dL Total Calcium 8.4 L 8.5-10.1 mg/dL Magnesium Level 2.20 1.80-2.40 mg/dL Total Bilirubin 0.4 # 0.2-1.0 mg/dL Aspartate Amino Transf (AST/SGOT) 16 10-37 U/L Alanine Aminotransferase (ALT/SGPT) 7 L 12-78 U/L Alkaline Phosphatase 62 50-136 U/L Total Protein 6.3 6.0-8.3 g/dL Albumin 2.2 L 3.5-5.0 g/dL Whole Blood Ketones Quantitative 2.2 H 0.0-0.6 mmol/L Thyroid Stimulating Hormone (TSH) 1.28 0.36-3.74 uIU/mL Coagulation Labs: Test 12/18/24 12:01 Range/Units Prothrombin Time 14.6 H 9.6-11.6 SEC Prothromb Time International Ratio 1.43 H 0.85-1.15 Activated Partial Thromboplast Time 29.4 26.3-35.5 SEC DIAGNOSTICS / RADIOLOGY RESULTS: [ ] PLAN Maintain O2 sats above 92% Nebulizer treatments Xopenex home nebs per family request Continue IV Antibiotics, following cultures Patient will require MBSS Steroids Continue FC for urinary retention NEURO: Minimize central acting medications as possible. Fall Precautions. Well lighted room through the day and minimize interruptions through the night to prevent acute delirium. PULMONARY: Supplemental 02 as needed Titrate Fio2 to keep Spo2 > or = 90% DuoNebs and CPT as needed IS hourly while awake for pulmonary hygiene Out of bed to chair as tolerated CARDIOVASCULAR: Follow hemodynamics. Titrate vasopressor to keep MAP >65 or systolic blood pressure >95mmHg DRIPS: None LINES: PIV GI & NUTRITION: Continue nutritional support Aspirations precautions Prokinetic agents and laxatives as needed KIDNEYS & ELECTROLYTES: Strict monitoring of intake and output Daily weights Avoid nephrotoxic agents Monitor electrolytes and replace as needed Goal urine output of 30mL/hr or 0.5mL/kg/hr Urine output: [ ] Fluid Balance: [ ] ENDOCRINE: Maintain blood glucose between 100-180 at all times. Insulin sliding scale for blood glucose management INFECTIOUS DISEASE: Trend temperature. Rock-culture if febrile. Micro: [ ] Antibiotics: [ ] Zosyn Vancomycin HEMATOLOGY & COAGULATION: Monitor H&H. Keep Hgb > 7 Transfuse 1 unit of PRBC for Hgb < 7 Transfuse 1 pack of platelets of platelets < 20, 000 Watch for any signs and symptoms of bleeding SKIN: Pressure ulcer prevention per facility protocol Rehab: PT/OT Prophylaxis: GI: protonix DVT: Lovenox Code Status: Full Resuscitation Disposition: ICU Case was discussed and seen with my supervising physician. The above plan was formulated and agreed upon. ATTESTATION BY PHYSICIAN I have evaluated the patient chart, medical records, and spoke with appropriate staff. I reviewed the documentation, medical decision making, and treatment plan as noted by the mid-level provider above. I agree with the findings and plan of care. ANYA Carrion mD AGACNP Dec 20, 2024 09:52
--- NOTE | 2024-12-20 10:49 | PN ---
[facility] PROGRESS NOTE Date of Service: Dec 20, 2024 Time of Service: 10:48 SUBJECTIVE: Patient is a 35-year-old female with past medical history for muscular dystrophy, asthma, trach and PEG tube, patient over the past several days has been progressively getting more short of breath, patient is on 2-3 L of O2 at baseline which progressed to 10 L since yesterday and decided to present to the emergency department. Informed about associated diarrhea and vomitings the last 2 days. Patient had a PEG tube in the past, was removed after patient passed bedside swallow and patient tolerates food orally according to the family. Patient's history revealed patient used to walk until 4 years of age and has been wheelchair bound ever since, she developed having respiratory distress 15 years ago when the tracheostomy has been placed, she used to require home oxygen only at nighttime which progressed to requiring oxygen all day , Patient's family informed about COVID infection 2 months ago . Patient's vitals on arrival temperature 98.2, pulse 122, respiratory rate 20, blood pressure 122/87, patient is saturating at 93% on 100% O2 ventilator. Due to concern of pulmonary embolism, CT chest PE has been ordered which did not reveal PE and revealed the small left lower lobe pleural effusion, left upper lobe nodularities suggesting pneumonia, along with right lower lobe cystic bronchiectasis. Viral panel was performed was negative, [place] [address] [place] [address] , platelet count trended down to 113 from 189, sodium improved to 134 from 130, potassium improved to 4.4 from 2.7, magnesium 1.4, creatinine 0.5, BUN. Patient had elevated CRP and procalcitonin, started on antibiotics cefepime, Zosyn and azithromycin. Patient is currently continuing on vancomycin and Zosyn. Patient is continuing on Atrovent q.6 and albuterol q.6 and Pulmicort b.i.d. g entle hydration with LR 75 mL/hour . 12/18/2024 - patient is seen at bedside in room 218, patient is alert, awake, oriented to time place person. Patient is more awake compared to yesterday and was able to participate in conversation. Patient had hypoglycemic episodes overnight possibly secondary to prolonged starvation, started D5 LR. Patient's white blood count trended down from 15.5 to 8.2 . Patient's magnesium at 1.2, sodium 132, potassium 4.1. Anemia panel revealed iron-deficiency anemia with transferrin saturation of 8.7%, CRP will be trended tomorrow again. We are still pending on chest x-ray and CT abdomen pelvis report. Patient is currently hemodynamically stable on 10 L O2 trach collar and saturating at 96%, heart rate 97, respiratory rate 24, blood pressure 122/72. Patient will be started on hydrocortisone 100 mg q.12h for 5 days . Plan to get MBS before diet is started, Patient will be monitored closely. 12/19/2024: Patient was seen and evaluated bedside in room 218. Patient is awake, alert, oriented x3 and currently on 10 L O2 trach collar and saturating at 98%. CT abdomen and pelvis showed multiple bilateral renal calculi, no hydronephrosis, over distended urinary bladder. Morning lab showed potassium of 2.7, replacing potassium per protocol. Patient blood pressure was fluctuating in 80s, 90s systolic and midodrine 5 mg t.i.d. was started. Patient is cur rently on NPO, we will get a modified barium swallow study before starting diet. We also requested case management evaluation as patient might need IV antibiotics, oxygen support on discharge. 12/20/2024: Patient was seen and evaluated bedside in room 218. Patient is awake, alert, oriented x3, and currently on 10 L O2 trach collar and saturating 95%. X-ray abdomen showed nonobstructive bowel gas pattern without pneumoperitoneum. Respiratory culture showed growth of 1+ Gram-negative ricardo identified as Pseudomonas aeruginosa sensitive to Zosyn, meropenem, levofloxacin. Urine culture showed no growth after48 hours. Patient passed modified barium swallow study, NG tube was removed and diet advanced as tolerated as per critical care team. We are working on patient's placement to [facility] as patient might require extended course of IV antibiotics, oxygen support on discharge. REVIEW OF SYSTEMS CONSTITUTIONAL: Denies fevers, chills, or night sweats. No unintentional weight loss reported. PULMONARY: Admits to shortness of breath. GASTROINTESTINAL: Admits to vomiting ,diarrhea. Denies constipation, or changes in stool consistency or caliber. Denies coffee-ground emesis, hematemesis, hematochezia, or melanotic stools. PHYSICAL EXAM GENERAL APPEARANCE: The patient is awake, alert, and oriented, in no acute cardiopulmonary distress. NEUROLOGICAL: Could not be examined LUNGS: Rales, rhonchi present bilaterally CARDIOVASCULAR: Regular. S1 and S2 normal. No appreciable rubs, murmurs or gallops. ABDOMEN: Soft, nondistended. EXTREMITIES: Non-edematous and not cyanotic. No clubbing. Good capillary refill. SKIN: No skin breakdown. Vital Signs (last 8hr) Date Time Temp Pulse Resp B/P (MAP) Pulse Ox O2 Delivery O2 Flow Rate FiO2 12/20/24 08:00 98.1 66 15 91/68 Trach Collar 40 12/20/24 08:00 40 12/20/24 06:30 100 25 12/20/24 05:37 98 5 104/61 87 Trach Collar 40 12/20/24 04:00 40 12/20/24 04:00 96 Trach Collar+ 10 60 12/20/24 04:00 98.4 12/20/24 03:37 59 14 93/53 93 Trach Collar 40 LABS: Laboratory: Test 12/20/24 04:52 12/19/24 10:50 12/19/24 05:24 12/18/24 12:01 Range/Units White Blood Count 8.0 # 4.8-10.8 K/uL Red Blood Count 3.39 L 4.00-5.50 MIL/uL Hemoglobin 10.2 L 12.0-16.0 g/dL Hematocrit 31.2 L 36-48 % Mean Corpuscular Volume 92.0 79-99 fL Mean Corpuscular Hemoglobin 30.1 27.0-33.0 pg Mean Corpuscular Hemoglobin Concent 32.7 32.0-36.0 g/dL Red Cell Distribution Width 14.6 11.0-15.5 % Platelet Count 175 # 130-400 K/uL Mean Platelet Volume 10.9 H 7.5-10.5 fL Nucleated Red Blood Cells 0.0 0.0-0.19 % Sodium Level 140 136-145 mmol/L Potassium Level 2.9 *L 3.5-5.1 mmol/L Chloride Level 103 101-111 mmol/L Carbon Dioxide Level 30 21-32 mmol/L Blood Urea Nitrogen 4 L 7-18 mg/dL Creatinine 0.2 L 0.5-1.0 mg/dL Glomerular Filtration Rate Calc 156 >90 mL/min Random Glucose 116 H 70-105 mg/dL Total Calcium 8.4 L 8.5-10.1 mg/dL Magnesium Level 2.20 1.80-2.40 mg/dL Total Bilirubin 0.4 # 0.2-1.0 mg/dL Aspartate Amino Transf (AST/SGOT) 16 10-37 U/L Alanine Aminotransferase (ALT/SGPT) 7 L 12-78 U/L Alkaline Phosphatase 62 50-136 U/L Total Protein 6.3 6.0-8.3 g/dL Albumin 2.2 L 3.5-5.0 g/dL Vancomycin Level Trough 13.7 10.0-20.0 UG/ML Immature Granulocyte % (Auto) 0.6 0-1 % Neutrophils (%) (Auto) 84.3 H 40.0-77.0 % Lymphocytes (%) (Auto) 8.3 L 21.0-51.0 % Monocytes (%) (Auto) 6.4 3.0-13.0 % Eosinophils (%) (Auto) 0.0 0.0-8.0 % Basophils (%) (Auto) 0.4 0.0-5.0 % Neutrophils # (Auto) 4.5 1.8-7.7 K/uL Lymphocytes # (Auto) 0.4 L 1.0-4.8 K/uL Monocytes # (Auto) 0.3 0.1-1.0 K/uL Eosinophils # (Auto) 0.00 0.00-0.70 K/uL Basophils # (Auto) 0.02 0.00-0.20 K/uL Absolute Immature Granulocyte (auto 0.03 0-1 K/uL Prothrombin Time 14.6 H 9.6-11.6 SEC Prothromb Time International Ratio 1.43 H 0.85-1.15 Activated Partial Thromboplast Time 29.4 26.3-35.5 SEC Whole Blood Ketones Quantitative 2.2 H 0.0-0.6 mmol/L Thyroid Stimulating Hormone (TSH) 1.28 0.36-3.74 uIU/mL Current Medications Medications (Trade) Dose Ordered Sig/Nighat Route PRN Reason Start Time Stop Time Status Last Admin Dose Admin Acetaminophen (TYLenol 325MG ELIXIR) 400 mg Q6H PRN PO TEMPERATURE GREATER THAN 101.5 12/17/24 11:00 01/16/25 02:59 Acetaminophen (TYLenol 325MG TAB) 650 mg Q6H PRN PO TEMPERATURE GREATER THAN 101.5 12/17/24 03:00 12/17/24 10:35 DC Albuterol (DUOneb) 1 UDVIAL [id number] IH 12/17/24 06:00 12/17/24 05:14 DC Albuterol Sulfate (Proventil 0.083% 2.5mg/3ml) 2.5 mg [id number] IH 12/17/24 06:00 12/19/24 09:02 DC 12/18/24 23:48 2.5 MG Budesonide (Pulmicort 0.5 Mg/2ml) 0.5 mg BIDRESP IH 12/17/24 06:00 01/16/25 05:59 12/20/24 08:47 0.5 MG Dextrose/Lactated Ringer's 1,000 ml @ 75 mls/hr [id number] IV 12/18/24 11:00 12/19/24 09:03 DC 12/18/24 12:55 75 MLS/HR Enoxaparin Sodium (Lovenox) 30 mg DAILY SQ 12/20/24 09:00 01/19/25 08:59 12/20/24 08:03 30 MG Enoxaparin Sodium (Lovenox) 30 mg DAILY SQ 12/17/24 11:00 12/17/24 12:49 DC Enoxaparin Sodium (Lovenox) 40 mg DAILY SQ 12/17/24 09:00 12/17/24 10:27 DC Famotidine (Pepcid 20mg Vial) 20 mg BID IV 12/17/24 21:00 12/19/24 15:47 DC 12/19/24 08:24 20 MG Famotidine (Pepcid 20mg Tab) 20 mg DAILY PO 12/17/24 09:00 12/17/24 12:49 DC Guaifenesin (RobiTUSSin SUGAR-FREE 100 MG/ 5 ML UDCUP) 400 mg Q4H PRN PO cough 12/17/24 03:00 01/16/25 02:59 Home Med (Home Medication) LEVALBUTEROL 0.63MG/3ML NEB TID PRN PO SOB/WHEEZING 12/19/24 09:30 01/18/25 09:29 12/19/24 23:42 0.63 EACH Hydrocortisone Sodium Succinate (Solu-corTEF 100MG) 50 mg Q12H IV 12/20/24 03:30 01/19/25 03:29 12/20/24 04:38 50 MG Hydrocortisone Sodium Succinate (Solu-corTEF 100MG) 100 mg Q12H IV 12/18/24 15:30 12/19/24 16:31 DC 12/19/24 16:09 100 MG Ipratropium [place] (AtrovENT UD) 0.5 MG [id number] IH 12/17/24 06:00 12/19/24 09:02 DC 12/19/24 06:31 0.5 MG Lactated Ringer's 1,000 ml @ 75 mls/hr [id number] IV 12/17/24 03:00 12/18/24 11:00 DC 12/18/24 05:42 75 MLS/HR Magnesium Sulfate 50 ml @ 0 mls/hr PROTOCOL PRN IV mgprotocol 12/17/24 07:00 01/16/25 06:59 12/19/24 10:33 25 MLS/HR Midodrine (PROAMatine 5 MG TABLET) 5 mg TID PO 12/19/24 14:00 12/19/24 16:31 DC Midodrine (PROAMatine 5 MG TABLET) 5 mg TID PRN PO OTHER [SEE ORDER COMMENTS] 12/19/24 16:30 01/18/25 13:59 Morphine Sulfate (morPHINE 2MG SYG) 0.5 mg Q4H PRN IVP SEVERE PAIN (7-10) 12/19/24 09:00 12/26/24 08:59 Morphine Sulfate (morPHINE 4MG SYG) 2 mg Q4H PRN IVP SEVERE PAIN (7-10) 12/17/24 03:00 12/19/24 08:56 DC 12/18/24 01:26 2 MG Norepinephrine 250 ml @ 0 mls/hr PROTOCOL IV 12/17/24 05:30 12/19/24 08:56 DC Ondansetron HCl (zoFRAN 4MG INJ) 4 mg Q6H PRN IV NAUSEA/VOMITING 12/17/24 03:00 01/16/25 02:59 Pantoprazole Sodium (PROTonix 40MG INJ) 40 mg BID IVP 12/19/24 21:00 01/18/25 20:59 12/20/24 08:03 40 MG Pharmacy Profile Note (Pharmacy Communication) 1 each ONCE MISC 12/19/24 09:00 12/19/24 09:18 DC Pharmacy Profile Note (Pharmacy Communication) 1 each ONCE MISC 12/17/24 03:00 12/17/24 03:19 DC Pharmacy Profile Note (Pharmacy Communication) 1 each ONCE MISC 12/17/24 10:30 12/19/24 08:52 DC Phenol (Sore Throat [place]) 1 SPRAY Q4H PRN PO SORE THROAT 12/19/24 09:30 01/18/25 09:29 12/19/24 09:22 1 SPRY Piperacillin Sod/ Tazobactam Sod 50 ml @ 12.5 mls/hr Q8H IVPB 12/17/24 03:30 12/17/24 12:49 DC Piperacillin Sod/ Tazobactam Sod 50 ml @ 12.5 mls/hr Q8H IVPB 12/17/24 15:00 12/27/24 14:59 12/20/24 08:04 12.5 MLS/HR Potassium Chloride 100 ml @ 50 mls/hr AD PRN IV POTASSIUM PROTOCOL 12/17/24 07:00 01/16/25 06:59 12/20/24 06:13 50 MLS/HR Potassium Chloride 100 ml @ 50 mls/hr PROTOCOL IV 12/17/24 01:30 12/17/24 06:58 DC 12/17/24 01:37 50 MLS/HR Potassium Chloride 100 ml @ 100 mls/hr AD PRN IV POTASSIUM PROTOCOL 12/17/24 07:00 01/16/25 06:59 12/19/24 12:45 100 MLS/HR Potassium Chloride (KCl 10% Elixir 20meq/15ml) 10 meq DAILY PO 12/21/24 09:00 01/20/25 08:59 Potassium Chloride (KCl 10% Elixir 20meq/15ml) 20 meq AD PRN PO POTASSIUM PROTOCOL 12/20/24 10:30 01/19/25 10:29 Vancomycin HCl 100 ml @ 50 mls/hr Q8H IV 12/17/24 12:00 12/20/24 09:47 DC 12/20/24 04:39 50 MLS/HR Vancomycin HCl (Vancomycin Protocol) 1 each AD IV 12/17/24 11:30 12/20/24 09:47 DC DIAGNOSTICS / RADIOLOGY: [facility] [address] [place] [address] IMAGING REPORT Signed PATIENT: KUNAL GE MR#: [id number] : 1990 SEX: F AGE: 34 LOCATION: 2CH ORDER 2300 STATUS: ADM IN REPORT#: [id number] SERVICE 0800 REASON: distension, ngt to IWS ORDERING PHYSICIAN: LATISHA SYKES PAC PROCEDURE: ABD 1VW - ABD 1VW EXAM: XR ABDOMEN, 1 VIEW CLINICAL INFORMATION: Abdominal distension; history of nasogastric tube to intermittent wall suction. TECHNIQUE: Supine anteroposterior view of the abdomen was obtained. COMPARISON: Abdominal radiograph, 1 view, December 18, 2024 at 15:44 EST. FINDINGS: BOWEL: The bowel gas pattern is within normal limits. PERITONEUM/SOFT TISSUES: No free intraperitoneal air is identified, and no pathologic calcification is seen. OSSEOUS STRUCTURES: No acute osseous abnormality is identified. IMPRESSION: * Nonobstructive bowel gas pattern without pneumoperitoneum. * Comparison: Compared to abdominal radiograph dated December 18, 2024 at 15:44 EST, the present study shows the current findings as described above. /[place] DICTATED BY: AGUILAR GRAVES MD DATE: 12/20/24137 ELECTRONICALLY SIGNED BY: AGUILAR GRAVES MD DATE: 12/20/24137 ASSESSMENT: Acute hypoxemic respiratory failure Sepsis possibly secondary to Community-acquired pneumonia Suspecting ileus Tracheostomy status, dependent on home oxygen Severe hypokalemia resolved Hypomagnesemia Dehydration Severe scoliosis secondary to muscular dystrophy Asthma hypoglycemia possibly secondary to starvation PLAN: Acute hypoxemic respiratory failure, Sepsis possibly secondary to Community- acquired pneumonia Respiratory culture showed growth of Pseudomonas aeruginosa sensitive to Zosyn, meropenem, levofloxacin currently continuing on Zosyn and vancomycin day 4 We will wean off the oxygen requirement as tolerated currently on 10L O2 received IV fluid according to sepsis protocol in the ED Hydrocortisone was tapered to 50 mg q.12h by critical care team followup with chest X ray. Severe hypokalemia, hyponatremia, hypomagnesemia Replace the electrolytes according to protocol hypoglycemia possibly secondary to starvation started on D5 LR at 75ml/hr on 12/18/2024 Patient passed modified barium swallow study on 12/19/2024, NG tube was removed and diet advanced as tolerated. We will follow up with daily labs GI prophylaxis with famotidine Further course of hospitalization depending on clinical response. ATTESTATION BY PHYSICIAN I have seen and examined the patient. I reviewed the documentation, medical decision making, and treatment plan as noted by the resident physician above. I agree with the findings and plan of care. CARLA SEO MD, ADIL SHAH QUADRI MD Dec 20, 2024 10:49
[2024-12-20] MEDS: PoTASSium chl 10% ELIXIR 20MEQ 20 MEQ/15 ML UDCUP PO ONE (11:27)
[2024-12-20] MEDS: PoTASSium chl 10% ELIXIR 20MEQ 20 MEQ/15 ML UDCUP PO PRN (11:28)
[2024-12-20 14:44] LABS: CREATININE 0.5 mg/dL (0.5-1.0); GLOMERULAR FILTR. RATE CALC 125.0 mL/min (>90); GLUCOSE,RANDOM 157.0 mg/dL (70-105); SODIUM SERUM 139.0 mmol/L (136-145); UREA NITROGEN, BLOOD 6.0 mg/dL (7-18)
[2024-12-21] VITALS (43 sets, daily range): BP systolic 90–159; BP diastolic 59–109; PULSE 52–98; RESP 9–38; TEMP 97.8–98.8; O2SAT 94–98
[2024-12-21 04:13] LABS: NUCLEATED RED BLOOD CELLS 0.0 % (0.0-0.19); PLATELET COUNT (AUTO) 193.0 K/uL (130-400); RED BLOOD CELL COUNT(AUTO) 3.45 MIL/uL (4.00-5.50); RED CELL DISTRIBUTION WIDTH 14.8 % (11.0-15.5); WHITE BLOOD COUNT (AUTO) 7.5 K/uL (4.8-10.8)
[2024-12-21 04:26] LABS: ASPARTATE AMINOTRANSFERASE 19.0 U/L (10-37); CREATININE 0.7 mg/dL (0.5-1.0); GLOMERULAR FILTR. RATE CALC 116.0 mL/min (>90); GLUCOSE,RANDOM 145.0 mg/dL (70-105); SODIUM SERUM 141.0 mmol/L (136-145); TOTAL PROTEIN, SERUM 6.5 g/dL (6.0-8.3); UREA NITROGEN, BLOOD 10.0 mg/dL (7-18)
--- NOTE | 2024-12-21 05:38 | HMCIMG ---
EXAM: CR Chest, 1 views. CLINICAL HISTORY: Cough. COMPARISON: None provided. FINDINGS: Patch of opacity is seen in right lower zone and left midzone. Bilateral perihilar congestion is noted. No pleural effusion or pneumothorax. The cardiomediastinal silhouette is within normal limits. Kyphoscoliosis of thoracic spine is noted. IMPRESSION: Patch of opacity is seen in right lower zone and left midzone. Bilateral perihilar congestion is noted. /[place]
[2024-12-21] MEDS: PoTASSium chl 10% ELIXIR 20MEQ 20 MEQ/15 ML UDCUP PO SCH (09:15)
--- NOTE | 2024-12-21 10:15 | PN ---
[facility] PROGRESS NOTE Date Patient Seen: Dec 21, 2024 Time of Visit: 10:15 Supervising Physician: Jef Valdes MD Primary Care Physician: Satish Mcguire Outpatient Specialists: [ ] Inpatient Consults: DR Sommers, Primary team : [facility] PROBLEM LIST: Acute on chronic hypoxemic respiratory failure, Ventilator dependence Pseudomonas Aeruginosa Bilateral Pneumonia Ninety retention status post García catheter placement on 12/19/24 Hypokalemia Muscular dystrophy Asthma Cachexia BMI 21.1 INTERVAL HISTORY: Patient is awake alert and oriented x3. Continues on home ventilator machine via T-piece per trach. Continues with home ventilator settings. Chemistry unremarkable, CBC unremarkable similar to yesterday. Patient has been tolerating p.o. diet well with no signs of aspiration. Patient denies any chest pain palpitations or increased shortness for breath. Patient reports feeling better. García catheter in place draining well. Chest x-ray in a.m. Plan: Continue antibiotics for pneumonia Following cultures negative thus far Aspiration precautions Urinary obstruction status post García catheter Maintain O2 sats above 92% Chest x-ray in a.m. CM for dc planning to LTACH We believe she will benefit from palliative care but unfortunately the family seems poorly receptive to the idea. Prognosis is very poor due to her severe underlying medical condition. REVIEW OF SYSTEMS: 12 point ROS reviewed with patient. Pertinent positives mentioned above. Otherwise negative. PHYSICAL EXAM: GENERAL: alert, weak, awake oriented x 3 HEENT: EOMI, Sclera non icteric, moist mucosa NECK: Supple, no JVD, trachea midline LUNGS: Clear breath sounds bilaterally. No wheezes HEART: Regular rate and rhythm. Normal S1 and S2, without murmurs ABD: Abdomen soft, nontender. Bowel sounds present EXT: No clubbing cyanosis or edema NEURO: Alert and oriented to person, follows commands Vital Signs (last 8hr) Date Time Temp Pulse Resp B/P (MAP) Pulse Ox O2 Delivery O2 Flow Rate FiO2 12/21/24 06:55 94 24 12/21/24 06:52 98 22 12/21/24 06:50 94 44 12/21/24 06:07 61 18 120/78 95 Trach Collar 40 12/21/24 05:07 70 20 124/70 96 Trach Collar 40 12/21/24 04:07 85 21 118/85 91 Trach Collar 40 12/21/24 04:00 40 12/21/24 04:00 98.8 11/12/25 04:00 95 Trach Collar+ 10 40 12/21/24 03:07 82 19 124/83 94 Trach Collar 40 LABS: Hematology Labs: Test 12/21/24 04:03 Range/Units White Blood Count 7.5 4.8-10.8 K/uL Red Blood Count 3.45 L 4.00-5.50 MIL/uL Hemoglobin 10.3 L 12.0-16.0 g/dL Hematocrit 32.2 L 36-48 % Mean Corpuscular Volume 93.3 79-99 fL Mean Corpuscular Hemoglobin 29.9 27.0-33.0 pg Mean Corpuscular Hemoglobin Concent 32.0 32.0-36.0 g/dL Red Cell Distribution Width 14.8 11.0-15.5 % Platelet Count 193 130-400 K/uL Mean Platelet Volume 10.4 7.5-10.5 fL Nucleated Red Blood Cells 0.0 0.0-0.19 % Chemistry Labs: Test 12/21/24 04:03 Range/Units Sodium Level 141 136-145 mmol/L Potassium Level 3.8 3.5-5.1 mmol/L Chloride Level 106 101-111 mmol/L Carbon Dioxide Level 27 21-32 mmol/L Blood Urea Nitrogen 10 7-18 mg/dL Creatinine 0.7 0.5-1.0 mg/dL Glomerular Filtration Rate Calc 116 >90 mL/min Random Glucose 145 H 70-105 mg/dL Total Calcium 8.8 8.5-10.1 mg/dL Magnesium Level 2.10 1.80-2.40 mg/dL Total Bilirubin 0.4 0.2-1.0 mg/dL Aspartate Amino Transf (AST/SGOT) 19 10-37 U/L Alanine Aminotransferase (ALT/SGPT) 10 #L 12-78 U/L Alkaline Phosphatase 51 50-136 U/L Total Protein 6.5 6.0-8.3 g/dL Albumin 2.3 L 3.5-5.0 g/dL DIAGNOSTICS / RADIOLOGY RESULTS: [ ] PLAN NEURO: Minimize central acting medications as possible. Fall Precautions. Well lighted room through the day and minimize interruptions through the night to prevent acute delirium. PULMONARY: Supplemental 02 as needed Titrate Fio2 to keep Spo2 > or = 90% DuoNebs and CPT as needed IS hourly while awake for pulmonary hygiene Out of bed to chair as tolerated CARDIOVASCULAR: Follow hemodynamics. Titrate vasopressor to keep MAP >65 or systolic blood pressure >95mmHg DRIPS: None LINES: PIV GI & NUTRITION: Continue nutritional support Aspirations precautions Prokinetic agents and laxatives as needed KIDNEYS & ELECTROLYTES: Strict monitoring of intake and output Daily weights Avoid nephrotoxic agents Monitor electrolytes and replace as needed Goal urine output of 30mL/hr or 0.5mL/kg/hr Urine output: [ ] Fluid Balance: [ ] ENDOCRINE: Maintain blood glucose between 100-180 at all times. Insulin sliding scale for blood glucose management INFECTIOUS DISEASE: Trend temperature. Rock-culture if febrile. Micro: [ ] Antibiotics: [ ] Zosyn Vancomycin HEMATOLOGY & COAGULATION: Monitor H&H. Keep Hgb > 7 Transfuse 1 unit of PRBC for Hgb < 7 Transfuse 1 pack of platelets of platelets < 20, 000 Watch for any signs and symptoms of bleeding SKIN: Pressure ulcer prevention per facility protocol Rehab: PT/OT Prophylaxis: GI: protonix DVT: Lovenox Code Status: Full Resuscitation Disposition: ICU Case was discussed and seen with my supervising physician. The above plan was formulated and agreed upon. ATTESTATION BY PHYSICIAN I reviewed the documentation, medical decision making, and treatment plan as noted by the mid-level provider above. I agree with the findings and plan of care. Jef Valdes MD, NELLY J AGACNP Dec 21, 2024 10:15 JEF VALDES MD Dec 23, 2024 12:00
[2024-12-21] MEDS: LACTOBACILLUS RHAMNOSUS GG 1 EACH CAP.SPRINK PO SCH (11:56)
--- NOTE | 2024-12-21 13:08 | NUR ---
SPEECH NOTE: CELLULAR EQUIPMENT REPAIRER coordinated with nurse Avila. As per nurse, patient tolerating diet recommendations of minced and moist solids and thin liquids with no overt s/s of aspiration. Please re-consult speech therapy services if any s/s of aspiration arise or increased infiltrates appear on chest xrays post MBSS completed on 12/19/2024. All questions answered. Addendum: 12/21/[address] [facility] Amended: Links added.
--- NOTE | 2024-12-21 15:15 | NUR ---
[facility] ICU Skin Assessment: Patient assessed by wound healing team. Patient with no wounds or skin breakdown noted. Assessment and recommendations provided to primary nurse. Education provided.
--- NOTE | 2024-12-21 15:25 | PN ---
[facility] PROGRESS NOTE Date of Service: Dec 21, 2024 Time of Service: 15:01 SUBJECTIVE: Patient is a 35-year-old female with past medical history for muscular dystrophy, asthma, trach and PEG tube, patient over the past several days has been progressively getting more short of breath, patient is on 2-3 L of O2 at baseline which progressed to 10 L since yesterday and decided to present to the emergency department. Informed about associated diarrhea and vomitings the last 2 days. Patient had a PEG tube in the past, was removed after patient passed bedside swallow and patient tolerates food orally according to the family. Patient's history revealed patient used to walk until 4 years of age and has been wheelchair bound ever since, she developed having respiratory distress 15 years ago when the tracheostomy has been placed, she used to require home oxygen only at nighttime which progressed to requiring oxygen all day , Patient's family informed about COVID infection 2 months ago . Patient's vitals on arrival temperature 98.2, pulse 122, respiratory rate 20, blood pressure 122/87, patient is saturating at 93% on 100% O2 ventilator. Due to concern of pulmonary embolism, CT chest PE has been ordered which did not reveal PE and revealed the small left lower lobe pleural effusion, left upper lobe nodularities suggesting pneumonia, along with right lower lobe cystic bronchiectasis. Viral panel was performed was negative, [place] [address] [place] [address] , platelet count trended down to 113 from 189, sodium improved to 134 from 130, potassium improved to 4.4 from 2.7, magnesium 1.4, creatinine 0.5, BUN. Patient had elevated CRP and procalcitonin, started on antibiotics cefepime, Zosyn and azithromycin. Patient is currently continuing on vancomycin and Zosyn. Patient is continuing on Atrovent q.6 and albuterol q.6 and Pulmicort b.i.d. g entle hydration with LR 75 mL/hour . 12/18/2024 - patient is seen at bedside in room 218, patient is alert, awake, oriented to time place person. Patient is more awake compared to yesterday and was able to participate in conversation. Patient had hypoglycemic episodes overnight possibly secondary to prolonged starvation, started D5 LR. Patient's white blood count trended down from 15.5 to 8.2 . Patient's magnesium at 1.2, sodium 132, potassium 4.1. Anemia panel revealed iron-deficiency anemia with transferrin saturation of 8.7%, CRP will be trended tomorrow again. We are still pending on chest x-ray and CT abdomen pelvis report. Patient is currently hemodynamically stable on 10 L O2 trach collar and saturating at 96%, heart rate 97, respiratory rate 24, blood pressure 122/72. Patient will be started on hydrocortisone 100 mg q.12h for 5 days . Plan to get MBS before diet is started, Patient will be monitored closely. 12/19/2024: Patient was seen and evaluated bedside in room 218. Patient is awake, alert, oriented x3 and currently on 10 L O2 trach collar and saturating at 98%. CT abdomen and pelvis showed multiple bilateral renal calculi, no hydronephrosis, over distended urinary bladder. Morning lab showed potassium of 2.7, replacing potassium per protocol. Patient blood pressure was fluctuating in 80s, 90s systolic and midodrine 5 mg t.i.d. was started. Patient is cur rently on NPO, we will get a modified barium swallow study before starting diet. We also requested case management evaluation as patient might need IV antibiotics, oxygen support on discharge. 12/20/2024: Patient was seen and evaluated bedside in room 218. Patient is awake, alert, oriented x3, and currently on 10 L O2 trach collar and saturating 95%. X-ray abdomen showed nonobstructive bowel gas pattern without pneumoperitoneum. Respiratory culture showed growth of 1+ Gram-negative ricardo identified as Pseudomonas aeruginosa sensitive to Zosyn, meropenem, levofloxacin. Urine culture showed no growth after48 hours. Patient passed modified barium swallow study, NG tube was removed and diet advanced as tolerated as per critical care team. We are working on patient's placement to [facility] as patient might require extended course of IV antibiotics, oxygen support on discharge. 12/21/2024: Patient was seen and evaluated bedside in room 218. Patient is awake, alert, oriented x3 and currently on 10 L oxygen trach collar and saturating 96%. She is doing well, denies fever, chills, nausea, chest pain, palpitations. Chest x-ray showed patch of opacity in right lower zone and left mid zone, bilateral perihilar congestion. IV vancomycin has been stopped by critical care team, patient is currently on IV Zosyn (day 5) for pneumonia. Patient will need IV antibiotics, oxygen support on discharge. We are working with case management for patient's placement to [facility] on discharge. REVIEW OF SYSTEMS CONSTITUTIONAL: Denies fevers, chills, or night sweats. No unintentional weight loss reported. PULMONARY: Admits to shortness of breath. GASTROINTESTINAL: Admits to vomiting ,diarrhea. Denies constipation, or changes in stool consistency or caliber. Denies coffee-ground emesis, hematemesis, hematochezia, or melanotic stools. PHYSICAL EXAM GENERAL APPEARANCE: The patient is awake, alert, and oriented, in no acute cardiopulmonary distress. NEUROLOGICAL: Could not be examined LUNGS: Rales, rhonchi present bilaterally CARDIOVASCULAR: Regular. S1 and S2 normal. No appreciable rubs, murmurs or gallops. ABDOMEN: Soft, nondistended. EXTREMITIES: Non-edematous and not cyanotic. No clubbing. Good capillary refill. SKIN: No skin breakdown. Vital Signs (last 8hr) Date Time Temp Pulse Resp B/P (MAP) Pulse Ox O2 Delivery O2 Flow Rate FiO2 12/21/24 14:36 83 34 12/21/24 14:30 87 44 12/21/24 12:20 95 44 12/21/24 12:00 40 12/21/24 12:00 97 Trach Collar+ 10 40 12/21/24 12:00 97.9 12/21/24 12:00 83 20 134/99 (111) 97 12/21/24 11:00 70 18 128/84 (99) 97 12/21/24 10:20 95 44 12/21/24 10:00 83 18 137/103 (114) 95 12/21/24 09:00 83 18 130/109 (116) 97 12/21/24 08:00 97 Trach Collar+ 10 40 12/21/24 08:00 53 18 142/92 (109) 97 12/21/24 08:00 40 LABS: Laboratory: Test 12/21/24 04:03 Range/Units White Blood Count 7.5 4.8-10.8 K/uL Red Blood Count 3.45 L 4.00-5.50 MIL/uL Hemoglobin 10.3 L 12.0-16.0 g/dL Hematocrit 32.2 L 36-48 % Mean Corpuscular Volume 93.3 79-99 fL Mean Corpuscular Hemoglobin 29.9 27.0-33.0 pg Mean Corpuscular Hemoglobin Concent 32.0 32.0-36.0 g/dL Red Cell Distribution Width 14.8 11.0-15.5 % Platelet Count 193 130-400 K/uL Mean Platelet Volume 10.4 7.5-10.5 fL Nucleated Red Blood Cells 0.0 0.0-0.19 % Sodium Level 141 136-145 mmol/L Potassium Level 3.8 3.5-5.1 mmol/L Chloride Level 106 101-111 mmol/L Carbon Dioxide Level 27 21-32 mmol/L Blood Urea Nitrogen 10 7-18 mg/dL Creatinine 0.7 0.5-1.0 mg/dL Glomerular Filtration Rate Calc 116 >90 mL/min Random Glucose 145 H 70-105 mg/dL Total Calcium 8.8 8.5-10.1 mg/dL Magnesium Level 2.10 1.80-2.40 mg/dL Total Bilirubin 0.4 0.2-1.0 mg/dL Aspartate Amino Transf (AST/SGOT) 19 10-37 U/L Alanine Aminotransferase (ALT/SGPT) 10 #L 12-78 U/L Alkaline Phosphatase 51 50-136 U/L Total Protein 6.5 6.0-8.3 g/dL Albumin 2.3 L 3.5-5.0 g/dL Current Medications Medications (Trade) Dose Ordered Sig/Nighat Route PRN Reason Start Time Stop Time Status Last Admin Dose Admin Acetaminophen (TYLenol 325MG ELIXIR) 400 mg Q6H PRN PO TEMPERATURE GREATER THAN 101.5 12/17/24 11:00 01/16/25 02:59 Acetaminophen (TYLenol 325MG TAB) 650 mg Q6H PRN PO TEMPERATURE GREATER THAN 101.5 12/17/24 03:00 12/17/24 10:35 DC Albuterol (DUOneb) 1 UDVIAL [id number] 12/17/24 06:00 12/17/24 05:14 DC Albuterol Sulfate (Proventil 0.083% 2.5mg/3ml) 2.5 mg [id number] 12/17/24 06:00 12/19/24 09:02 DC 12/18/24 23:48 2.5 MG Budesonide (Pulmicort 0.5 Mg/2ml) 0.5 mg BIDRESP IH 12/17/24 06:00 01/16/25 05:59 12/21/24 06:50 0.5 MG Dextrose/Lactated Ringer's 1,000 ml @ 75 mls/hr [id number] IV 12/18/24 11:00 12/19/24 09:03 DC 12/18/24 12:55 75 MLS/HR Enoxaparin Sodium (Lovenox) 30 mg DAILY SQ 12/20/24 09:00 01/19/25 08:59 12/21/24 09:16 30 MG Enoxaparin Sodium (Lovenox) 30 mg DAILY SQ 12/17/24 11:00 12/17/24 12:49 DC Enoxaparin Sodium (Lovenox) 40 mg DAILY SQ 12/17/24 09:00 12/17/24 10:27 DC Famotidine (Pepcid 20mg Vial) 20 mg BID IV 12/17/24 21:00 12/19/24 15:47 DC 12/19/24 08:24 20 MG Famotidine (Pepcid 20mg Tab) 20 mg DAILY PO 12/17/24 09:00 12/17/24 12:49 DC Guaifenesin (RobiTUSSin SUGAR-FREE 100 MG/ 5 ML UDCUP) 400 mg Q4H PRN PO cough 12/17/24 03:00 01/16/25 02:59 Home Med (Home Medication) LEVALBUTEROL 0.63MG/3ML NEB TID PRN PO SOB/WHEEZING 12/19/24 09:30 01/18/25 09:29 12/21/24 14:29 1 EACH Hydrocortisone Sodium Succinate (Solu-corTEF 100MG) 50 mg Q12H IV 12/20/24 03:30 01/19/25 03:29 12/21/24 03:33 50 MG Hydrocortisone Sodium Succinate (Solu-corTEF 100MG) 100 mg Q12H IV 12/18/24 15:30 12/19/24 16:31 DC 12/19/24 16:09 100 MG Ipratropium [place] (AtrovENT UD) 0.5 MG [id number] IH 12/17/24 06:00 12/19/24 09:02 DC 12/19/24 06:31 0.5 MG Lactated Ringer's 1,000 ml @ 75 mls/hr [id number] IV 12/17/24 03:00 12/18/24 11:00 DC 12/18/24 05:42 75 MLS/HR Lactobacillus Rhamnosus ([facility]) 1 each DAILY PO 12/21/24 11:00 01/20/25 10:59 12/21/24 11:56 1 EACH Magnesium Sulfate 50 ml @ 0 mls/hr PROTOCOL PRN IV mgprotocol 12/17/24 07:00 01/16/25 06:59 12/19/24 10:33 25 MLS/HR Midodrine (PROAMatine 5 MG TABLET) 5 mg TID PO 12/19/24 14:00 12/19/24 16:31 DC Midodrine (PROAMatine 5 MG TABLET) 5 mg TID PRN PO OTHER [SEE ORDER COMMENTS] 12/19/24 16:30 01/18/25 13:59 Morphine Sulfate (morPHINE 2MG SYG) 0.5 mg Q4H PRN IVP SEVERE PAIN (7-10) 12/19/24 09:00 12/26/24 08:59 Morphine Sulfate (morPHINE 4MG SYG) 2 mg Q4H PRN IVP SEVERE PAIN (7-10) 12/17/24 03:00 12/19/24 08:56 DC 12/18/24 01:26 2 MG Norepinephrine 250 ml @ 0 mls/hr PROTOCOL IV 12/17/24 05:30 12/19/24 08:56 DC Ondansetron HCl (zoFRAN 4MG INJ) 4 mg Q6H PRN IV NAUSEA/VOMITING 12/17/24 03:00 01/16/25 02:59 Pantoprazole Sodium (PROTonix 40MG INJ) 40 mg BID IVP 12/19/24 21:00 01/18/25 20:59 12/21/24 09:15 40 MG Pharmacy Profile Note (Pharmacy Communication) 1 each ONCE MISC 12/19/24 09:00 12/19/24 09:18 DC Pharmacy Profile Note (Pharmacy Communication) 1 each ONCE MISC 12/17/24 03:00 12/17/24 03:19 DC Pharmacy Profile Note (Pharmacy Communication) 1 each ONCE MISC 12/17/24 10:30 12/19/24 08:52 DC Phenol (Sore Throat [place]) 1 SPRAY Q4H PRN PO SORE THROAT 12/19/24 09:30 01/18/25 09:29 12/19/24 09:22 1 SPRY Piperacillin Sod/ Tazobactam Sod 50 ml @ 12.5 mls/hr Q8H IVPB 12/17/24 03:30 12/17/24 12:49 DC Piperacillin Sod/ Tazobactam Sod 50 ml @ 12.5 mls/hr Q8H IVPB 12/17/24 15:00 12/27/24 14:59 12/21/24 07:20 12.5 MLS/HR Potassium Chloride 100 ml @ 50 mls/hr AD PRN IV POTASSIUM PROTOCOL 12/17/24 07:00 01/16/25 06:59 12/20/24 06:13 50 MLS/HR Potassium Chloride 100 ml @ 50 mls/hr PROTOCOL IV 12/17/24 01:30 12/17/24 06:58 DC 12/17/24 01:37 50 MLS/HR Potassium Chloride 100 ml @ 100 mls/hr AD PRN IV POTASSIUM PROTOCOL 12/17/24 07:00 01/16/25 06:59 12/19/24 12:45 100 MLS/HR Potassium Chloride (KCl 10% Elixir 20meq/15ml) 10 meq DAILY PO 12/21/24 09:00 01/20/25 08:59 12/21/24 09:15 10 MEQ Potassium Chloride (KCl 10% Elixir 20meq/15ml) 20 meq AD PRN PO POTASSIUM PROTOCOL 12/20/24 10:30 01/19/25 10:29 12/20/24 11:28 20 MEQ Vancomycin HCl 100 ml @ 50 mls/hr Q8H IV 12/17/24 12:00 12/20/24 09:47 DC 12/20/24 04:39 50 MLS/HR Vancomycin HCl (Vancomycin Protocol) 1 each AD IV 12/17/24 11:30 12/20/24 09:47 DC DIAGNOSTICS / RADIOLOGY: [place] [id number] IMAGING REPORT Signed PATIENT: KUNAL GE MR#: [id number] : 1990 SEX: F AGE: 34 LOCATION: 2CH ORDER 99 STATUS: ADM IN REPORT#: [id number] SERVICE 06 REASON: hypoxic resp failure ORDERING PHYSICIAN: ANYA REGALADO PROCEDURE: CXR1VW - CHEST 1VW EXAM: CR Chest, 1 views. CLINICAL HISTORY: Cough. COMPARISON: None provided. FINDINGS: Patch of opacity is seen in right lower zone and left midzone. Bilateral perihilar congestion is noted. No pleural effusion or pneumothorax. The cardiomediastinal silhouette is within normal limits. Kyphoscoliosis of thoracic spine is noted. IMPRESSION: Patch of opacity is seen in right lower zone and left midzone. Bilateral perihilar congestion is noted. /[place] DICTATED BY: KATHY SMITH Jr., MD DATE: 12/21/24636 ELECTRONICALLY SIGNED BY: KATHY SMITH Jr., MD DATE: 12/21/24636 ASSESSMENT: Acute hypoxemic respiratory failure Sepsis possibly secondary to Community-acquired pneumonia Suspecting ileus Tracheostomy status, dependent on home oxygen Severe hypokalemia resolved Hypomagnesemia Dehydration Severe scoliosis secondary to muscular dystrophy Asthma hypoglycemia possibly secondary to starvation PLAN: Acute hypoxemic respiratory failure, Sepsis possibly secondary to Community- acquired pneumonia Respiratory culture showed growth of Pseudomonas aeruginosa sensitive to Zosyn, meropenem, levofloxacin currently continuing on Zosyn (day 5), vancomycin was stopped. We will wean off the oxygen requirement as tolerated currently on 10L O2 received IV fluid according to sepsis protocol in the ED Hydrocortisone was tapered to 50 mg q.12h by critical care team followup with chest X ray. Severe hypokalemia, hyponatremia, hypomagnesemia Replace the electrolytes according to protocol hypoglycemia possibly secondary to starvation started on D5 LR at 75ml/hr on 12/18/2024 Patient passed modified barium swallow study on 12/19/2024, NG tube was removed and diet advanced as tolerated. GI prophylaxis with Protonix 40 mg b.i.d. IV DVT prophylaxis with Lovenox 30 mg SQ daily We will follow up with daily labs Further course of hospitalization depending on clinical response. ATTESTATION BY PHYSICIAN I have seen and examined the patient. I reviewed the documentation, medical decision making, and treatment plan as noted by the resident physician above. I agree with the findings and plan of care. CARLA SEO MD, ADIL SHAH QUADRI MD Dec 21, 2024 15:25
[2024-12-22] VITALS (38 sets, daily range): BP systolic 107–163; BP diastolic 73–116; PULSE 63–117; RESP 4–90; TEMP 98.2–98.3; O2SAT 93–98
[2024-12-22 04:55] LABS: NUCLEATED RED BLOOD CELLS 0.0 % (0.0-0.19); PLATELET COUNT (AUTO) 226.0 K/uL (130-400); RED BLOOD CELL COUNT(AUTO) 3.82 MIL/uL (4.00-5.50); RED CELL DISTRIBUTION WIDTH 15.3 % (11.0-15.5); WHITE BLOOD COUNT (AUTO) 8.2 K/uL (4.8-10.8)
[2024-12-22 05:19] LABS: ASPARTATE AMINOTRANSFERASE 19.0 U/L (10-37); CREATININE 1.2 mg/dL (0.5-1.0); GLOMERULAR FILTR. RATE CALC 61.0 mL/min (>90); GLUCOSE,RANDOM 98.0 mg/dL (70-105); SODIUM SERUM 144.0 mmol/L (136-145); TOTAL PROTEIN, SERUM 6.7 g/dL (6.0-8.3); UREA NITROGEN, BLOOD 18.0 mg/dL (7-18)
--- NOTE | 2024-12-22 09:01 | PN ---
[facility] PROGRESS NOTE Date Patient Seen: Dec 22, 2024 Time of Visit: 09:00 Supervising Physician: Elver Chapa MD Primary Care Physician: Satish Mcguire Outpatient Specialists: [ ] Inpatient Consults: DR Sommers, Primary team : [place] PROBLEM LIST: Acute on chronic hypoxemic respiratory failure, Ventilator dependence Pseudomonas Aeruginosa Bilateral Pneumonia Ninety retention status post García catheter placement on 12/19/24 Hypokalemia Muscular dystrophy Asthma Cachexia BMI 21.1 INTERVAL HISTORY: Patient is awake alert and oriented x3. Continues on home ventilator machine vi a T-piece per trach. Continues with home ventilator settings. CBC unremarkable, chemistries shows creatinine of 1.1 GFR of 61. She was given 500 mL of NS IV bolus. Per father patient required sleep study patient will need to follow up with pugger helper of choice once discharge for a sleep study has requested and further ventilator management and maintenance. For now recommended ABG father in agreement. Plan: Continue antibiotics for pneumonia Following cultures negative thus far Aspiration precautions Urinary obstruction status post García catheter Maintain O2 sats above 92% Chest x-ray in a.m. CM for dc planning would benefit from LTAC ABG. REVIEW OF SYSTEMS: 12 point ROS reviewed with patient. Pertinent positives mentioned above. Otherwise negative. PHYSICAL EXAM: GENERAL: alert, weak, awake oriented x 3 HEENT: EOMI, Sclera non icteric, moist mucosa NECK: Supple, no JVD, trachea midline LUNGS: Clear breath sounds bilaterally. No wheezes HEART: Regular rate and rhythm. Normal S1 and S2, without murmurs ABD: Abdomen soft, nontender. Bowel sounds present EXT: No clubbing cyanosis or edema NEURO: Alert and oriented to person, follows commands Vital Signs (last 8hr) Date Time Temp Pulse Resp B/P (MAP) Pulse Ox O2 Delivery O2 Flow Rate FiO2 12/22/24 08:00 40 12/22/24 08:00 98.2 70 12 153/109 96 Trach Collar 40 12/22/24 08:00 96 Trach Collar+ 10 40 12/22/24 05:37 110 7 122/94 90 Trach Collar 40 12/22/24 05:07 69 7 146/102 96 Trach Collar 40 12/22/24 04:37 63 10 134/92 97 Trach Collar 40 12/22/24 04:07 98 90 122/77 94 Trach Collar 40 12/22/24 04:00 40 12/22/24 04:00 98 Trach Collar+ 10 40 12/22/24 03:37 109 13 126/80 91 Trach Collar 40 12/22/24 03:07 109 4 126/82 91 Trach Collar 40 12/22/24 02:37 110 8 140/85 92 Trach Collar 40 12/22/24 02:07 117 17 112/73 89 Trach Collar 40 12/22/24 01:37 66 16 151/81 89 Trach Collar 40 12/22/24 01:07 88 12 139/85 86 Trach Collar 40 LABS: Hematology Labs: Test 12/22/24 04:38 Range/Units White Blood Count 8.2 4.8-10.8 K/uL Red Blood Count 3.82 L 4.00-5.50 MIL/uL Hemoglobin 11.4 L 12.0-16.0 g/dL Hematocrit 36.4 36-48 % Mean Corpuscular Volume 95.3 79-99 fL Mean Corpuscular Hemoglobin 29.8 27.0-33.0 pg Mean Corpuscular Hemoglobin Concent 31.3 L 32.0-36.0 g/dL Red Cell Distribution Width 15.3 11.0-15.5 % Platelet Count 226 130-400 K/uL Mean Platelet Volume 10.8 H 7.5-10.5 fL Nucleated Red Blood Cells 0.0 0.0-0.19 % Chemistry Labs: Test 12/22/24 04:38 Range/Units Sodium Level 144 136-145 mmol/L Potassium Level 3.7 3.5-5.1 mmol/L Chloride Level 108 101-111 mmol/L Carbon Dioxide Level 25 21-32 mmol/L Blood Urea Nitrogen 18 7-18 mg/dL Creatinine 1.2 H 0.5-1.0 mg/dL Glomerular Filtration Rate Calc 61 >90 mL/min Random Glucose 98 70-105 mg/dL Total Calcium 8.7 8.5-10.1 mg/dL Magnesium Level 2.20 1.80-2.40 mg/dL Total Bilirubin 0.3 0.2-1.0 mg/dL Aspartate Amino Transf (AST/SGOT) 19 10-37 U/L Alanine Aminotransferase (ALT/SGPT) 13 12-78 U/L Alkaline Phosphatase 46 L 50-136 U/L Total Protein 6.7 6.0-8.3 g/dL Albumin 2.3 L 3.5-5.0 g/dL DIAGNOSTICS / RADIOLOGY RESULTS: [ ][facility] [address] [place] [address] IMAGING REPORT Signed PATIENT: KUNAL GE MR#: [id number] : 1990 SEX: F AGE: 34 LOCATION: 2CH ORDER 09 STATUS: ADM IN REPORT#: [id number] SERVICE 0859 REASON: RULE OUT OBSTRUCTION ORDERING PHYSICIAN: ANYA REGALADO PROCEDURE: RENAL - US RENAL SONOGRAM STUDY: US RENAL SONOGRAM CLINICAL INFORMATION: Rule out obstruction. TECHNIQUE: Ultrasound examination of both kidneys and urinary bladder was performed. COMPARISON: CT abdomen/pelvis of 12/18 9:38 TELEVISION NEWS PRODUCER FINDINGS: RIGHT KIDNEY: The right kidney is obscured and not adequately visualized. LEFT KIDNEY: The left kidney measures 7.3 x 2.6 x 2.9 cm. A stone measuring 4 mm is seen in the middle calyx and a stone measuring 3 mm is seen in the lower calyx of the left kidney. Renal cortical echogenicity and corticomedullary differentiation are preserved, and there is no hydronephrosis. URINARY BLADDER: The urinary bladder contains a García catheter. The bladder wall appears normal where visualized, with no definite intraluminal mass or calculus. IMPRESSION: * Left renal calculi measuring 4 mm (middle calyx) and 3 mm (lower calyx) without sonographic evidence of hydronephrosis or obstruction on the left. * Right kidney obscured and not adequately visualized. * García catheter in situ within the urinary bladder. * Overall similar appearance compared to prior CT. /[place] DICTATED BY: AGUILAR GRAVES MD DATE: 12/22/241416 ELECTRONICALLY SIGNED BY: AGUILAR GRAVES MD DATE: 12/22/241416 PLAN NEURO: Minimize central acting medications as possible. Fall Precautions. Well lighted room through the day and minimize interruptions through the night to prevent acute delirium. PULMONARY: Supplemental 02 as needed Titrate Fio2 to keep Spo2 > or = 90% DuoNebs and CPT as needed IS hourly while awake for pulmonary hygiene Out of bed to chair as tolerated CARDIOVASCULAR: Follow hemodynamics. Titrate vasopressor to keep MAP >65 or systolic blood pressure >95mmHg DRIPS: None LINES: PIV GI & NUTRITION: Continue nutritional support Aspirations precautions Prokinetic agents and laxatives as needed KIDNEYS & ELECTROLYTES: Strict monitoring of intake and output Daily weights Avoid nephrotoxic agents Monitor electrolytes and replace as needed Goal urine output of 30mL/hr or 0.5mL/kg/hr Urine output: [ ] Fluid Balance: [ ] ENDOCRINE: Maintain blood glucose between 100-180 at all times. Insulin sliding scale for blood glucose management INFECTIOUS DISEASE: Trend temperature. Rock-culture if febrile. Micro: [ ] Antibiotics: [ ] Zosyn Vancomycin HEMATOLOGY & COAGULATION: Monitor H&H. Keep Hgb > 7 Transfuse 1 unit of PRBC for Hgb < 7 Transfuse 1 pack of platelets of platelets < 20, 000 Watch for any signs and symptoms of bleeding SKIN: Pressure ulcer prevention per facility protocol Rehab: PT/OT Prophylaxis: GI: protonix DVT: Lovenox Code Status: Full Resuscitation Disposition: ICU Case was discussed and seen with my supervising physician. The above plan was formulated and agreed upon. ATTESTATION BY PHYSICIAN I reviewed the documentation, medical decision making, and treatment plan as noted by the mid-level provider above. I agree with the findings and plan of care. Elver Chapa MD, NELLY J AGACNP Dec 22, 2024 09:01
[2024-12-22] MEDS: 0.9% NACL 500ML IV.SOLN 500 ML IV ONE (12:37)
--- NOTE | 2024-12-22 13:17 | HMCIMG ---
STUDY: US RENAL SONOGRAM CLINICAL INFORMATION: Rule out obstruction. TECHNIQUE: Ultrasound examination of both kidneys and urinary bladder was performed. COMPARISON: CT abdomen/pelvis of 12/18 9:38 MAINFRAME PROGRAMMER ANALYST FINDINGS: RIGHT KIDNEY: The right kidney is obscured and not adequately visualized. LEFT KIDNEY: The left kidney measures 7.3 x 2.6 x 2.9 cm. A stone measuring 4 mm is seen in the middle calyx and a stone measuring 3 mm is seen in the lower calyx of the left kidney. Renal cortical echogenicity and corticomedullary differentiation are preserved, and there is no hydronephrosis. URINARY BLADDER: The urinary bladder contains a García catheter. The bladder wall appears normal where visualized, with no definite intraluminal mass or calculus. IMPRESSION: * Left renal calculi measuring 4 mm (middle calyx) and 3 mm (lower calyx) without sonographic evidence of hydronephrosis or obstruction on the left. * Right kidney obscured and not adequately visualized. * García catheter in situ within the urinary bladder. * Overall similar appearance compared to prior CT. /[place]
--- NOTE | 2024-12-22 15:16 | NUR ---
ABG ATTEMPTED BY RT. UNSUCCESSFUL. ANYA REGALADO NP MADE AWARE. RT TO RE ATTEMPT TOMORROW.
[2024-12-22 16:14] LABS: CREATININE 1.1 mg/dL (0.5-1.0); GLOMERULAR FILTR. RATE CALC 67.0 mL/min (>90); GLUCOSE,RANDOM 84.0 mg/dL (70-105); SODIUM SERUM 144.0 mmol/L (136-145); UREA NITROGEN, BLOOD 17.0 mg/dL (7-18)
--- NOTE | 2024-12-22 16:23 | PN ---
[facility] PROGRESS NOTE Date of Service: Dec 22, 2024 Time of Service: 16:23 SUBJECTIVE: Patient is a 35-year-old female with past medical history for muscular dystrophy, asthma, trach and PEG tube, patient over the past several days has been progressively getting more short of breath, patient is on 2-3 L of O2 at baseline which progressed to 10 L since yesterday and decided to present to the emergency department. Informed about associated diarrhea and vomitings the last 2 days. Patient had a PEG tube in the past, was removed after patient passed bedside swallow and patient tolerates food orally according to the family. Patient's history revealed patient used to walk until 4 years of age and has been wheelchair bound ever since, she developed having respiratory distress 15 years ago when the tracheostomy has been placed, she used to require home oxygen only at nighttime which progressed to requiring oxygen all day , Patient's family informed about COVID infection 2 months ago . Patient's vitals on arrival temperature 98.2, pulse 122, respiratory rate 20, blood pressure 122/87, patient is saturating at 93% on 100% O2 ventilator. Due to concern of pulmonary embolism, CT chest PE has been ordered which did not reveal PE and revealed the small left lower lobe pleural effusion, left upper lobe nodularities suggesting pneumonia, along with right lower lobe cystic bronchiectasis. Viral panel was performed was negative, [place] [address] [place] [address] , platelet count trended down to 113 from 189, sodium improved to 134 from 130, potassium improved to 4.4 from 2.7, magnesium 1.4, creatinine 0.5, BUN. Patient had elevated CRP and procalcitonin, started on antibiotics cefepime, Zosyn and azithromycin. Patient is currently continuing on vancomycin and Zosyn. Patient is continuing on Atrovent q.6 and albuterol q.6 and Pulmicort b.i.d. g entle hydration with LR 75 mL/hour . 12/18/2024 - patient is seen at bedside in room 218, patient is alert, awake, oriented to time place person. Patient is more awake compared to yesterday and was able to participate in conversation. Patient had hypoglycemic episodes overnight possibly secondary to prolonged starvation, started D5 LR. Patient's white blood count trended down from 15.5 to 8.2 . Patient's magnesium at 1.2, sodium 132, potassium 4.1. Anemia panel revealed iron-deficiency anemia with transferrin saturation of 8.7%, CRP will be trended tomorrow again. We are still pending on chest x-ray and CT abdomen pelvis report. Patient is currently hemodynamically stable on 10 L O2 trach collar and saturating at 96%, heart rate 97, respiratory rate 24, blood pressure 122/72. Patient will be started on hydrocortisone 100 mg q.12h for 5 days . Plan to get MBS before diet is started, Patient will be monitored closely. 12/19/2024: Patient was seen and evaluated bedside in room 218. Patient is awake, alert, oriented x3 and currently on 10 L O2 trach collar and saturating at 98%. CT abdomen and pelvis showed multiple bilateral renal calculi, no hydronephrosis, over distended urinary bladder. Morning lab showed potassium of 2.7, replacing potassium per protocol. Patient blood pressure was fluctuating in 80s, 90s systolic and midodrine 5 mg t.i.d. was started. Patient is cur rently on NPO, we will get a modified barium swallow study before starting diet. We also requested case management evaluation as patient might need IV antibiotics, oxygen support on discharge. 12/20/2024: Patient was seen and evaluated bedside in room 218. Patient is awake, alert, oriented x3, and currently on 10 L O2 trach collar and saturating 95%. X-ray abdomen showed nonobstructive bowel gas pattern without pneumoperitoneum. Respiratory culture showed growth of 1+ Gram-negative ricardo identified as Pseudomonas aeruginosa sensitive to Zosyn, meropenem, levofloxacin. Urine culture showed no growth after48 hours. Patient passed modified barium swallow study, NG tube was removed and diet advanced as tolerated as per critical care team. We are working on patient's placement to [facility] as patient might require extended course of IV antibiotics, oxygen support on discharge. 12/21/2024: Patient was seen and evaluated bedside in room 218. Patient is awake, alert, oriented x3 and currently on 10 L oxygen trach collar and saturating 96%. She is doing well, denies fever, chills, nausea, chest pain, palpitations. Chest x-ray showed patch of opacity in right lower zone and left mid zone, bilateral perihilar congestion. IV vancomycin has been stopped by critical care team, patient is currently on IV Zosyn (day 5) for pneumonia. Patient will need IV antibiotics, oxygen support on discharge. We are working with case management for patient's placement to [facility] on discharge. 12/22/2024: Patient was seen and evaluated bedside in room 218. Patient is awake, alert, oriented x3 and currently on 5 L oxygen trach collar and saturating 96%. Patient is doing well clinically, denies fever, chills, nausea, chest pain. Morning lab showed creatinine increased to 1.2 from 0.7, BUN 18. Renal ultrasound showed left renal calculi measuring 4 mm and 3 mm without sonographic evidence of hydronephrosis or obstruction on the left. We gave normal saline 500 mL bolus, ordered urine electrolytes, urine creatinine. Patient is currently receiving IV Zosyn Q8. Medical attending has 1 on 1 peer review with [facility] this afternoon for patient's disposition on discharge. REVIEW OF SYSTEMS CONSTITUTIONAL: Denies fevers, chills, or night sweats. No unintentional weight loss reported. PULMONARY: Admits to shortness of breath. GASTROINTESTINAL: Admits to vomiting ,diarrhea. Denies constipation, or changes in stool consistency or caliber. Denies coffee-ground emesis, hematemesis, hematochezia, or melanotic stools. PHYSICAL EXAM GENERAL APPEARANCE: The patient is awake, alert, and oriented, in no acute cardiopulmonary distress. NEUROLOGICAL: Could not be examined LUNGS: Rales, rhonchi present bilaterally CARDIOVASCULAR: Regular. S1 and S2 normal. No appreciable rubs, murmurs or gallops. ABDOMEN: Soft, nondistended. EXTREMITIES: Non-edematous and not cyanotic. No clubbing. Good capillary refill. SKIN: No skin breakdown. Vital Signs (last 8hr) Date Time Temp Pulse Resp B/P (MAP) Pulse Ox O2 Delivery O2 Flow Rate FiO2 12/22/24 16:00 79 12 162/104 96 Trach Collar 40 12/22/24 16:00 40 12/22/24 15:30 82 44 12/22/24 15:30 81 22 12/22/24 15:28 79 22 12/22/24 15:00 66 12 148/99 96 Trach Collar 40 12/22/24 14:00 90 12 150/91 94 Trach Collar 40 12/22/24 13:00 81 12 137/85 93 Trach Collar 40 12/22/24 12:00 40 12/22/24 12:00 101 20 114/73 97 Trach Collar 40 12/22/24 11:00 109 16 107/78 94 Trach Collar 40 12/22/24 10:00 107 20 163/98 92 Trach Collar 40 12/22/24 09:00 86 12 159/116 95 Trach Collar 40 LABS: Laboratory: Test 12/22/24 16:00 12/22/24 04:38 Range/Units Sodium Level 144 136-145 mmol/L Potassium Level 3.3 L 3.5-5.1 mmol/L Chloride Level 109 101-111 mmol/L Carbon Dioxide Level 25 21-32 mmol/L Blood Urea Nitrogen 17 7-18 mg/dL Creatinine 1.1 H 0.5-1.0 mg/dL Glomerular Filtration Rate Calc 67 >90 mL/min Random Glucose 84 70-105 mg/dL Total Calcium 8.1 L 8.5-10.1 mg/dL White Blood Count 8.2 4.8-10.8 K/uL Red Blood Count 3.82 L 4.00-5.50 MIL/uL Hemoglobin 11.4 L 12.0-16.0 g/dL Hematocrit 36.4 36-48 % Mean Corpuscular Volume 95.3 79-99 fL Mean Corpuscular Hemoglobin 29.8 27.0-33.0 pg Mean Corpuscular Hemoglobin Concent 31.3 L 32.0-36.0 g/dL Red Cell Distribution Width 15.3 11.0-15.5 % Platelet Count 226 130-400 K/uL Mean Platelet Volume 10.8 H 7.5-10.5 fL Nucleated Red Blood Cells 0.0 0.0-0.19 % Magnesium Level 2.20 1.80-2.40 mg/dL Total Bilirubin 0.3 0.2-1.0 mg/dL Aspartate Amino Transf (AST/SGOT) 19 10-37 U/L Alanine Aminotransferase (ALT/SGPT) 13 12-78 U/L Alkaline Phosphatase 46 L 50-136 U/L Total Protein 6.7 6.0-8.3 g/dL Albumin 2.3 L 3.5-5.0 g/dL Current Medications Medications (Trade) Dose Ordered Sig/Nighat Route PRN Reason Start Time Stop Time Status Last Admin Dose Admin Acetaminophen (TYLenol 325MG ELIXIR) 400 mg Q6H PRN PO TEMPERATURE GREATER THAN 101.5 12/17/24 11:00 01/16/25 02:59 Acetaminophen (TYLenol 325MG TAB) 650 mg Q6H PRN PO TEMPERATURE GREATER THAN 101.5 12/17/24 03:00 12/17/24 10:35 DC Albuterol (DUOneb) 1 UDVIAL [id number] IH 12/17/24 06:00 12/17/24 05:14 DC Albuterol Sulfate (Proventil 0.083% 2.5mg/3ml) 2.5 mg [id number] IH 12/17/24 06:00 12/19/24 09:02 DC 12/18/24 23:48 2.5 MG Budesonide (Pulmicort 0.5 Mg/2ml) 0.5 mg BIDRESP IH 12/17/24 06:00 01/16/25 05:59 12/22/24 06:22 0.5 MG Dextrose/Lactated Ringer's 1,000 ml @ 75 mls/hr [id number] IV 12/18/24 11:00 12/19/24 09:03 DC 12/18/24 12:55 75 MLS/HR Enoxaparin Sodium (Lovenox) 30 mg DAILY SQ 12/20/24 09:00 01/19/25 08:59 12/22/24 08:09 30 MG Enoxaparin Sodium (Lovenox) 30 mg DAILY SQ 12/17/24 11:00 12/17/24 12:49 DC Enoxaparin Sodium (Lovenox) 40 mg DAILY SQ 12/17/24 09:00 12/17/24 10:27 DC Famotidine (Pepcid 20mg Vial) 20 mg BID IV 12/17/24 21:00 12/19/24 15:47 DC 12/19/24 08:24 20 MG Famotidine (Pepcid 20mg Tab) 20 mg DAILY PO 12/17/24 09:00 12/17/24 12:49 DC Guaifenesin (RobiTUSSin SUGAR-FREE 100 MG/ 5 ML UDCUP) 400 mg Q4H PRN PO cough 12/17/24 03:00 01/16/25 02:59 Home Med (Home Medication) LEVALBUTEROL 0.63MG/3ML NEB TID PRN PO SOB/WHEEZING 12/19/24 09:30 01/18/25 09:29 12/22/24 15:28 0.63 EACH Hydrocortisone Sodium Succinate (Solu-corTEF 100MG) 50 mg Q12H IV 12/20/24 03:30 01/19/25 03:29 12/22/24 15:24 50 MG Hydrocortisone Sodium Succinate (Solu-corTEF 100MG) 100 mg Q12H IV 12/18/24 15:30 12/19/24 16:31 DC 12/19/24 16:09 100 MG Ipratropium [place] (AtrovENT UD) 0.5 MG [id number] IH 12/17/24 06:00 12/19/24 09:02 DC 12/19/24 06:31 0.5 MG Lactated Ringer's 1,000 ml @ 75 mls/hr [id number] IV 12/17/24 03:00 12/18/24 11:00 DC 12/18/24 05:42 75 MLS/HR Lactobacillus Rhamnosus ([facility]) 1 each DAILY PO 12/21/24 11:00 01/20/25 10:59 12/22/24 08:08 1 EACH Magnesium Sulfate 50 ml @ 0 mls/hr PROTOCOL PRN IV mgprotocol 12/17/24 07:00 01/16/25 06:59 12/19/24 10:33 25 MLS/HR Midodrine (PROAMatine 5 MG TABLET) 5 mg TID PO 12/19/24 14:00 12/19/24 16:31 DC Midodrine (PROAMatine 5 MG TABLET) 5 mg TID PRN PO OTHER [SEE ORDER COMMENTS] 12/19/24 16:30 01/18/25 13:59 Morphine Sulfate (morPHINE 2MG SYG) 0.5 mg Q4H PRN IVP SEVERE PAIN (7-10) 12/19/24 09:00 12/26/24 08:59 Morphine Sulfate (morPHINE 4MG SYG) 2 mg Q4H PRN IVP SEVERE PAIN (7-10) 12/17/24 03:00 12/19/24 08:56 DC 12/18/24 01:26 2 MG Norepinephrine 250 ml @ 0 mls/hr PROTOCOL IV 12/17/24 05:30 12/19/24 08:56 DC Ondansetron HCl (zoFRAN 4MG INJ) 4 mg Q6H PRN IV NAUSEA/VOMITING 12/17/24 03:00 01/16/25 02:59 Pantoprazole Sodium (PROTonix 40MG INJ) 40 mg BID IVP 12/19/24 21:00 01/18/25 20:59 12/22/24 08:08 40 MG Pharmacy Profile Note (Pharmacy Communication) 1 each ONCE MISC 12/19/24 09:00 12/19/24 09:18 DC Pharmacy Profile Note (Pharmacy Communication) 1 each ONCE MISC 12/17/24 03:00 12/17/24 03:19 DC Pharmacy Profile Note (Pharmacy Communication) 1 each ONCE MISC 12/17/24 10:30 12/19/24 08:52 DC Phenol (Sore Throat Peytona) 1 SPRAY Q4H PRN PO SORE THROAT 12/19/24 09:30 01/18/25 09:29 12/19/24 09:22 1 SPRY Piperacillin Sod/ Tazobactam Sod 50 ml @ 12.5 mls/hr Q8H IVPB 12/17/24 03:30 12/17/24 12:49 DC Piperacillin Sod/ Tazobactam Sod 50 ml @ 12.5 mls/hr Q8H IVPB 12/17/24 15:00 12/27/24 14:59 12/22/24 15:16 12.5 MLS/HR Potassium Chloride 100 ml @ 50 mls/hr AD PRN IV POTASSIUM PROTOCOL 12/17/24 07:00 01/16/25 06:59 12/20/24 06:13 50 MLS/HR Potassium Chloride 100 ml @ 50 mls/hr PROTOCOL IV 12/17/24 01:30 12/17/24 06:58 DC 12/17/24 01:37 50 MLS/HR Potassium Chloride 100 ml @ 100 mls/hr AD PRN IV POTASSIUM PROTOCOL 12/17/24 07:00 01/16/25 06:59 12/19/24 12:45 100 MLS/HR Potassium Chloride (KCl 10% Elixir 20meq/15ml) 10 meq DAILY PO 12/21/24 09:00 01/20/25 08:59 12/22/24 08:08 10 MEQ Potassium Chloride (KCl 10% Elixir 20meq/15ml) 20 meq AD PRN PO POTASSIUM PROTOCOL 12/20/24 10:30 01/19/25 10:29 12/20/24 11:28 20 MEQ Vancomycin HCl 100 ml @ 50 mls/hr Q8H IV 12/17/24 12:00 12/20/24 09:47 DC 12/20/24 04:39 50 MLS/HR Vancomycin HCl (Vancomycin Protocol) 1 each AD IV 12/17/24 11:30 12/20/24 09:47 DC DIAGNOSTICS / RADIOLOGY: [ ] [place] [address] [place] [id number] IMAGING REPORT Signed PATIENT: KUNAL GE MR#: [id number] : 1990 SEX: F AGE: 34 LOCATION: [facility] ORDER 09 STATUS: ADM IN REPORT#: [id number] SERVICE [id number] REASON: RULE OUT OBSTRUCTION ORDERING PHYSICIAN: ANYA REGALADO PROCEDURE: RENAL - US RENAL SONOGRAM STUDY: US RENAL SONOGRAM CLINICAL INFORMATION: Rule out obstruction. TECHNIQUE: Ultrasound examination of both kidneys and urinary bladder was performed. COMPARISON: CT abdomen/pelvis of 12/18 9:38 AWNINGS MECHANIC FINDINGS: RIGHT KIDNEY: The right kidney is obscured and not adequately visualized. LEFT KIDNEY: The left kidney measures 7.3 x 2.6 x 2.9 cm. A stone measuring 4 mm is seen in the middle calyx and a stone measuring 3 mm is seen in the lower calyx of the left kidney. Renal cortical echogenicity and corticomedullary differentiation are preserved, and there is no hydronephrosis. URINARY BLADDER: The urinary bladder contains a García catheter. The bladder wall appears normal where visualized, with no definite intraluminal mass or calculus. IMPRESSION: * Left renal calculi measuring 4 mm (middle calyx) and 3 mm (lower calyx) without sonographic evidence of hydronephrosis or obstruction on the left. * Right kidney obscured and not adequately visualized. * García catheter in situ within the urinary bladder. * Overall similar appearance compared to prior CT. /Given DICTATED BY: AGUILAR GRAVES MD DATE: 12/22/241416 ELECTRONICALLY SIGNED BY: AGUILAR GRAVES MD DATE: 12/22/241416 ASSESSMENT: Acute hypoxemic respiratory failure Pseudomonas aeruginosa on respiratory culture with CAP Sepsis possibly secondary to Community-acquired pneumonia JEANIE stage III Suspecting ileus Tracheostomy status, dependent on home oxygen Severe hypokalemia resolved Hypomagnesemia Dehydration Severe scoliosis secondary to muscular dystrophy Asthma hypoglycemia possibly secondary to starvation PLAN: Acute hypoxemic respiratory failure, Sepsis possibly secondary to Community- acquired pneumonia Respiratory culture showed growth of Pseudomonas aeruginosa sensitive to Zosyn, meropenem, levofloxacin currently continuing on Zosyn (day 5), vancomycin was stopped. We will wean off the oxygen requirement as tolerated currently on 10L O2 received IV fluid according to sepsis protocol in the ED Hydrocortisone was tapered to 50 mg q.12h by critical care team followup with chest X ray. Acute kidney injury stage III Patient creatinine has been increased to 1.2 from 0.5 Within 48 hours. Urine electrolytes, urine creatinine has been ordered We gave normal saline 500 mL IV bolus today Avoid nephrotoxic drugs. Severe hypokalemia, hyponatremia, hypomagnesemia Replace the electrolytes according to protocol hypoglycemia possibly secondary to starvation started on D5 LR at 75ml/hr on 12/18/2024 Patient passed modified barium swallow study on 12/19/2024, NG tube was removed and diet advanced as tolerated. GI prophylaxis with Protonix 40 mg b.i.d. IV DVT prophylaxis with Lovenox 30 mg SQ daily We will follow up with daily labs Further course of hospitalization depending on clinical response. ATTESTATION BY PHYSICIAN I have seen and examined the patient. I reviewed the documentation, medical decision making, and treatment plan as noted by the resident physician above. I agree with the findings and plan of care. CARLA SEO MD, ADIL SHAH QUADRI MD Dec 22, 2024 16:23
[2024-12-22] MEDS: 0.9% NACL 500ML IV.SOLN 500 ML IV SCH (17:35)
[2024-12-23] VITALS (25 sets, daily range): BP systolic 75–214; BP diastolic 35–121; PULSE 67–160; RESP 8–54; O2SAT 88–96
[2024-12-23 02:34] LABS: ABG BASE EXCESS -3.6 mmol/L (-2.0-3.0); ABG HCO3 20.9 mmol/L (21.0-28.0); ABG OXYGEN SATURATION 94.5 % (94.0-98.0); ABG PCO2 36 mmHg (32-45); ABG PH 7.386 (7.350-7.450); CARBON MONOXIDE 0.3 % (0.5-1.5); PO2, ARTERIAL BG 69.2 mmHg (83.0-108.0); TEMPERATURE, CELSIUS BG 37.0 CELSIUS (35.5-37.0)
--- NOTE | 2024-12-23 03:29 | NUR ---
RN SPOKE TO IVANA COBB NP FOR BENCHMARK. REPORTED PATIENT COMPLAINING OF SOB AND CONTINUOUSLY GETTING SUCTION BY DAD WHO IS AT BEDSIDE. PATIENT WITH BLOODY MUCOUS VIA TRACHEOSTOMY NOTED ON SUCTION LINE AND SUCTION CANISTER. ABG THAT WAS ORDERED FOR AM WAS DONE BY RT AND READINGS REPORTED. RT SUCTIONED PATIENT AND REMOVED LARGE MUCOUS PLUG. PATIENT CONTINUES TO BLEED VIA TRACHEOSTOMY. CARGO AGENT REQUESTED TO SPEAK TO RT AT THE MOMENT.
--- NOTE | 2024-12-23 03:35 | NUR ---
RT JOHNSON SPOKE TO IVANA COBB NP VIA PHONE. PER ELIZABETH, DIRECTOR OF CONSULTING SERVICES RECOMMENDING TO HAVE BIVONA 5 UNCUFFED SWITCHED TO CUFFED.
--- NOTE | 2024-12-23 04:08 | NUR ---
RN REPORTED TO IVANA COBB NP PATIENT WITH BLOOD IN URINE. PER TINNING EQUIPMENT TENDER, GET AM LABS DONE NOW AND COAGS
[2024-12-23 04:32] LABS: NUCLEATED RED BLOOD CELLS 0.0 % (0.0-0.19); PLATELET COUNT (AUTO) 264.0 K/uL (130-400); RED BLOOD CELL COUNT(AUTO) 4.1 MIL/uL (4.00-5.50); RED CELL DISTRIBUTION WIDTH 15.2 % (11.0-15.5); WHITE BLOOD COUNT (AUTO) 19.4 K/uL (4.8-10.8)
--- NOTE | 2024-12-23 04:33 | NUR ---
RN REPORTED TO IVANA COBB NP PATIENTS CURRENT CONDITION. PATIENT CONTINUES TO COMPLAIN OF SOB AND RT CURRENTLY USING AMBU BAG DUE TO PATIENT STATING IT FEELS BETTER. RT SPOUTER MILAGRO IS AT BEDSIDE WITH RT JOHNSON SETTING UP HOSPITAL VENTILATOR. PATIENT HAD BEEN ON HOME VENTILATOR PER FAMILY'S REQUEST SINCE ARRIVAL. DUE TO NOT REACHING VOLUMES, HOSPITAL VENTILATOR GETTING SET UP. RN REPORTED PATIENT BECOMING LETHARGIC AND WITH MINIMAL RESPONSE WHILE CONNECTED TO HOSPITAL VENTILATOR. PATIENTS VITALS STABILIZE WITH HR 90-100 AND O2 SATS 98% BUT DUE TO PATIENTS MENTAL CHANGE, PATIENT SWITCHED TO AMBU BAGGING IN WHICH PATIENT BECOMES AROUSABLE BUT VITALS BECOME UNSTABLE WITH HR 150'S-160'S AND O2 SATS 89-92%. PATIENT CONTINUES TO BLEED VIA TRACHEOSTOMY AND REQUIRES SUCTION. LOGISTICS COORDINATOR REQUESTS TO SPEAK WITH MILAGRO HOROWITZ. BIVONA 5 UNCUFFED UNABLE TO SWITCH DUE TO BIVONA 5 CUFFED NOT AVAILABLE.
[2024-12-23] MEDS ORDERED: NOREPINEPHRIN 4MG/NS 250ML 250 ML IV ONE (04:53)
--- NOTE | 2024-12-23 04:53 | NUR ---
IVANA COBB NP NOTIFIED PATIENT CODED AND ROSC ACHIEVED AT 0451. RESEARCH AND DEVELOPMENT ENGINEER ARRIVED AT BEDSIDE AT 0500
[2024-12-23 04:54] LABS: INR 1.25 (0.85-1.15)
--- NOTE | 2024-12-23 05:00 | HMCIMG ---
EXAM: CR Chest, 1 view CLINICAL HISTORY: Shortness of breath. COMPARISON: 12/22/2024. FINDINGS: Tracheostomy tube is in place. Suboptimal evaluation due to severe levoscoliosis. Degenerative osseous changes. Osteopenia. Moderate to large pleural effusion on the right side with interval worsening. Redemonstrated multifocal airspace disease in the bilateral lung murillo, concerning an infectious or inflammatory process. No pneumothorax. No acute osseous abnormality. IMPRESSION: Moderate to large pleural effusion on the right side with interval worsening. Redemonstrated multifocal airspace disease in the bilateral lung murillo, concerning an infectious or inflammatory process. /[place]
[2024-12-23 05:21] LABS: ASPARTATE AMINOTRANSFERASE 24.0 U/L (10-37); CREATININE 1.2 mg/dL (0.5-1.0); GLOMERULAR FILTR. RATE CALC 61.0 mL/min (>90); GLUCOSE,RANDOM 145.0 mg/dL (70-105); PHOSPHORUS 4.9 mg/dL (2.5-4.9); SODIUM SERUM 142.0 mmol/L (136-145); TOTAL PROTEIN, SERUM 7.7 g/dL (6.0-8.3); UREA NITROGEN, BLOOD 21.0 mg/dL (7-18)
--- NOTE | 2024-12-23 05:48 | HMCIMG ---
EXAM: CR Chest, 2 View. CLINICAL HISTORY: pneumonia COMPARISON: None provided. FINDINGS: gross scoliosis LUNGS: The lungs show patchy opacity in right lower zone and left parahilar region. PLEURAL SPACES: right cp angle blunted suggestive of pleural effusion .No evidence of pleural effusion or pneumothoraxon left side MEDIASTINUM: difficult to comment due to gross scoliosis IMPRESSION: patchy opacity of consolidation on right lower zone and left parahilar region -infective right pleural effusion /[place]
--- NOTE | 2024-12-23 05:48 | NUR ---
ANESTHESIA SPOKE TO POLISHER AND SANDER--MD REQUESTS POLISHER AND SANDER FOR INTUBATION
[2024-12-23 06:12] LABS: ABG BASE EXCESS -9.0 mmol/L (-2.0-3.0); ABG HCO3 18.8 mmol/L (21.0-28.0); ABG OXYGEN SATURATION 91.8 % (94.0-98.0); ABG PCO2 48 mmHg (32-45); ABG PH 7.208 (7.350-7.450); CARBON MONOXIDE 0.4 % (0.5-1.5); PO2, ARTERIAL BG 70.0 mmHg (83.0-108.0); TEMPERATURE, CELSIUS BG 37.0 CELSIUS (35.5-37.0); VENT MODE, BG NRBM (ROOM AIR)
--- NOTE | 2024-12-23 06:30 | NUR ---
DR VACA AT BEDSIDE. BRONCHOSCOPY AND ENDOTRACHEAL INTUBATION DISCUSSED. PATIENT WITH TRACHEAL STENOSIS THEREFORE GOING TO OR. FAMILY AT BEDSIDE, MD SPOKE TO FAMILY OF RISKS OR EVEN POSSIBLE . PATIENTS DAD CONSENTED FOR ALL PROCEDURES.
--- NOTE | 2024-12-23 06:31 | PN ---
[facility] PROGRESS NOTE Date Patient Seen: Dec 23, 2024 Time of Visit: 06:31 Supervising Physician: Dr. Elver Chapa Primary Care Physician: Satish Mcguire Outpatient Specialists: Inpatient Consults: Dr. 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 Severe ARDS, not POA Tracheal stenosis Sepsis 2/2 CAP, POA, Pseudomonas Aeruginosa Bilateral Pneumonia Muscular dystrophy s/p tracheostomy and s/p PEG tube Severe scoliosis secondary to muscular dystrophy Underlining asthma Moderate protein calorie malnutrition with cachexia Urinary retention status post García catheter placement on 12/19/24 Functional quadriplegia Severe hypokalemia, POA, results BMI 21.1 Failure to thrive Dehydration, POA Hypoglycemia episode INTERVAL HISTORY: 03:30 RN called to report that the patient reported shortness of breath and that the patient's father was continuously suctioning the patient. X-ray and ABGs were ordered. The patient was noted to have bloody mucus via trach. RT was called. RT suctioned the patient who removed a large mucus plug. The patient continued to bleed via trach. I spoke to RT who stated the patient has an uncuffed Bivona trach, and had low tidal volume. I recommended a Bivona cuffed trach to help apply pressure to the trach site which would help apply pressure on bleed. Later RT reported that there is no Bivona 5 cuffed available and due to the patient's anatomy the patient always had the uncuffed trach. About 1 hour later RN called again who reported that there is blood in the urine also. Stat labs were ordered including coags. At above 4:30 RN reports that patient continue short of breath and was currently being ambu bagged due to patient reports feeling better when ambu bagged. The patient was on home ventilator per families and patient's request. RT switched to the hospitalist ventilator to try to get better ventilation. RN reported that the patient became lethargic and with minimal response while connected on the ventilator. The patient's vitals stabilized heart rate 90-100 and O2 sats 98% but due to the patient's mental change RT started to Ambu bagged the patient again. When the patient was ambu bagged the patient became arousable but the heart rate increased to 150s 160s and oxygen levels 89-92%. The patient continued to bleed via tracheostomy and required suction. 04:[address] Chapa, pickle maker/cloth inspector on-call to inform him about this patient and to seek his recommendations. No answer. I called Dr. Sommers at 04:38 (who kindly gave his recommendations despite not being bacon skin lifter for [facility] Dr. Sommers reports to decrease suction and suction only when absolutely necessary. I send him the x-ray image. He recommended to turn the patient on the right side for suspected bleed on the left lung. Turned the patient on the right side with no improvement. The family reported that the patient per hx does not tolerate being on her right side. The patient was turned back to her left side. RN reported the patient coded for a few minutes and achieved Rosc at 4:51 a.m.. I spoke to Dr. Sommers again and requested for him to come in and do a bronch. Dr. Sommers unable to come and do a bronch. I went to assess the patient at bedside in speak to the father. The patient's eyes were opened, but no attempt to follow commands, and did not track. RT was ambu banging the patient. I spoke to [place], patient's father. I asked him if he made his Savi aware of the patient current condition. He reported he spoke to her about it. I spoke to Savi via phone on speaker. I informed her that the patient had large amount of bleeding via the trach (300 ml in the suction canister), and that she was being ventilated via Ambu bag, and of the reported code. I informed her of patient's poor prognosis and that she might not make it through the night. I informed her of my conversations/recommenda tions with Dr. Sommers. She request that more be done and everything be done to help assist to improve the patient condition. I reached out to Dr. Valdes, ICU pickle maker/cloth inspector who got a hold of Dr. Chapa. Dr. Chapa called me back and recommended the patient be intubated by anesthesia. Anesthesia arrived to see the patient. Dr. Chapa arrived to evaluate the patient at bedside. Bronch and endotracheal tube intubation were set up for anesthesia and Dr. Chapa, but decision was made to take the patient to the OR due to patient having tracheal stenosis and the patient is high risk due to her hx and medical condition. Father at bedside was informed of risks and even possible during intubation and bronchoscopy. The father continued to request all interventions to be done to help the patient. He verbalized understanding and requested we continue with the plan. The father signed consent for patient to go to OR for endotracheal intubation, bronchoscopy, and other indicated procedures. Dr. Tsang, general surgeon was consulted who agreed to be on stand by for the intubation and bronchoscopy. A shortly after 07:00 am I summarized the plan of care for the father. I informed him that general surgeon was called as a backup in case some thing did not go well with the intubation and bronchoscopy. I asked him if he had any questions, comments or concerns before I left. I informed him that I will be leaving and that Dr. Chapa is taking over the case. He continues to verbalized understanding and continues with the agreement of the plan. The patient's vital signs were 90 systolic, heart rate 120s, respirations 12, 90% via Ambu bag when I left the patient's bedside. REVIEW OF SYSTEMS: Unable to obtain ROS from patient due to patient's medical condition. PHYSICAL EXAM: GENERAL: Eyes open, does not follow command, does not track. Appears pale. HEENT: EOMI, Sclera non icteric, moist mucosa NECK: Supple, no JVD, trachea midline. Intermittent bleeding via trach. LUNGS: Diminished breath sounds bilaterally. No wheezes HEART: Tachycardic. Hypotensive. Regular rate and rhythm. Normal S1 and S2, without murmurs ABD: Abdomen distended, nontender. Bowel sounds present EXT: No clubbing cyanosis or edema. Contractures to bilateral hands, arms and legs. NEURO: Eyes open, does not follow command, does not track. Vital Signs (last 8hr) Date Time Temp Pulse Resp B/P (MAP) Pulse Ox O2 Delivery O2 Flow Rate FiO2 12/23/24 00:08 82 44 12/23/24 00:00 83 22 139/103 93 Trach Collar 12/23/24 00:00 40 12/23/24 00:00 96 Trach Collar+ 10 40 12/22/24 23:00 74 21 141/102 93 Trach Collar LABS: Hematology Labs: Test 12/23/24 04:26 Range/Units White Blood Count 19.4 #H 4.8-10.8 K/uL Red Blood Count 4.10 4.00-5.50 MIL/uL Hemoglobin 12.3 12.0-16.0 g/dL Hematocrit 39.7 36-48 % Mean Corpuscular Volume 96.8 79-99 fL Mean Corpuscular Hemoglobin 30.0 27.0-33.0 pg Mean Corpuscular Hemoglobin Concent 31.0 L 32.0-36.0 g/dL Red Cell Distribution Width 15.2 11.0-15.5 % Platelet Count 264 130-400 K/uL Mean Platelet Volume 10.1 7.5-10.5 fL Nucleated Red Blood Cells 0.0 0.0-0.19 % Chemistry Labs: Test 12/23/24 04:26 Range/Units Sodium Level 142 136-145 mmol/L Potassium Level 4.9 3.5-5.1 mmol/L Chloride Level 108 101-111 mmol/L Carbon Dioxide Level 18 L 21-32 mmol/L Blood Urea Nitrogen 21 H 7-18 mg/dL Creatinine 1.2 H 0.5-1.0 mg/dL Glomerular Filtration Rate Calc 61 >90 mL/min Random Glucose 145 #H 70-105 mg/dL Total Calcium 8.5 8.5-10.1 mg/dL Phosphorus Level 4.9 2.5-4.9 mg/dL Magnesium Level 2.10 1.80-2.40 mg/dL Total Bilirubin 0.3 0.2-1.0 mg/dL Aspartate Amino Transf (AST/SGOT) 24 10-37 U/L Alanine Aminotransferase (ALT/SGPT) 14 12-78 U/L Alkaline Phosphatase 55 50-136 U/L Total Protein 7.7 6.0-8.3 g/dL Albumin 2.6 L 3.5-5.0 g/dL Coagulation Labs: Test 12/23/24 04:26 Range/Units Prothrombin Time 13.0 H 9.6-11.6 SEC Prothromb Time International Ratio 1.25 H 0.85-1.15 Activated Partial Thromboplast Time 25.1 L 26.3-35.5 SEC DIAGNOSTICS / RADIOLOGY RESULTS: [ ] PLAN Intubate and bronch the patient under controlled conditions in the OR. Anesthesia and general surgeon were consulted. Dr. Chapa at bedside and is managing the patient. Further order per Dr. Chapa. NEURO: Minimize central acting medications as possible. Fall Precautions. Well lighted room through the day and minimize interruptions through the night to prevent acute delirium. PULMONARY: Supplemental 02 as needed Titrate Fio2 to keep Spo2 > or = 90% DuoNebs and CPT as needed IS hourly while awake for pulmonary hygiene Out of bed to chair as tolerated CARDIOVASCULAR: Follow hemodynamics. Titrate vasopressor to keep MAP >65 or systolic blood pressure >95mmHg DRIPS: None LINES: PIV GI & NUTRITION: Continue nutritional support Aspirations precautions Prokinetic agents and laxatives as needed KIDNEYS & ELECTROLYTES: Strict monitoring of intake and output Daily weights Avoid nephrotoxic agents Monitor electrolytes and replace as needed Goal urine output of 30mL/hr or 0.5mL/kg/hr ENDOCRINE: Maintain blood glucose between 100-180 at all times. Insulin sliding scale for blood glucose management INFECTIOUS DISEASE: Trend temperature. Rock-culture if febrile. Zosyn Vancomycin HEMATOLOGY & COAGULATION: Monitor H&H. Keep Hgb > 7 Transfuse 1 unit of PRBC for Hgb < 7 Transfuse 1 pack of platelets of platelets < 20, 000 Watch for any signs and symptoms of bleeding SKIN: Pressure ulcer prevention per facility protocol Rehab: PT/OT Prophylaxis: GI: Protonix DVT: Hold Lovenox due to active bleed. Code Status: Full Resuscitation Disposition: ICU Case was discussed and seen with my supervising physician. The above plan was formulated and agreed upon. Due to a high probability for clinically significant, life-threatening deterioration, the patient required my highest level of preparedness to intervene emergently, and I personally spent 120 minutes of critical care time directly and personally managing the patient. I devoted my full attention to the patient during this time, which is separate from time spent on any billable procedures. This includes time spent involved in work directly related to the care of the patient: such as review of prior records, development of treatment plan with patient and/or surrogate as well as nursing, discussions with consultants, evaluation of patient's response to treatment, examination of patient, obtaining history from patient or surrogate, ordering and performing tr eatments and interventions, ordering and review of laboratory studies, ordering and review of radiographic studies, pulse oximetry and re-evaluation of patient's condition, discussions with the family members and the patient, and any required documentation. This critical care time was performed to assess and manage the high probability of imminent life-threatening deterioration that could result in multi-organ failure. ATTESTATION BY PHYSICIAN I reviewed the documentation, medical decision making, and treatment plan as noted by the ANA above. I agree with the findings and plan of care. Elver Chapa MD, LUCIA M QUANTOMETER OPERATOR Dec 23, 2024 06:31
[2024-12-23] MEDS ORDERED: SODIUM BICARB 50MEQ 50ML VIAL 50 ML ONE (07:01)
[2024-12-23] MEDS: SODIUM BICARB 50MEQ 50ML VIAL IV ONE (07:14)
[2024-12-23] MEDS ORDERED: MIDAZOLAM HCL 1 MG/ML 2ML VIAL ONE (07:38)
[2024-12-23] MEDS ORDERED: LIDOCAINE PF 100MG/5ML (2%) SYRINGE 5ML ONE (07:38)
--- NOTE | 2024-12-23 08:10 | NUR ---
PATIENT TAKEN TO OR FOR PROCEDURE.
--- NOTE | 2024-12-23 08:56 | OP ---
Operative Note: DATE OF PROCEDURE: 12/23/24 SURGEON: ABHIJIT MARTINEZ MD MEAT SLICER: [] ANESTHESIA: General ANESTHESIOLOGIST/INCOME TAX AUDITOR: Douglas Clayton CRNA, DR Estrada PREOPERATIVE DIAGNOSIS: PULMONARY EDEMA, NONFUNCTIONING TRACH CARDIAC POSTOPERATIVE DIAGNOSIS: PULMONARY EDEMA, CARDIAC ARREST SYNOPSIS: Patient with a chronic trach for22 years because of muscle disorders. Patient is bed-bound trach dependent and contracted. She is a overnight and they have had very high pressures ventilating and she has a history of stenosis of her tracheostomy in the past that and needed dilated. They were unable to i ntubate through the mouth to be able to do a bronch to evaluate for mucus plug. X-rays are showing complete white out on both sides. I have been consulted for emergency airway to try to dilate the current trach to try to get a bigger trach with the cuff so that they can secure an airway. PROCEDURE: Trach dilation and exchange in the OR ESTIMATED BLOOD LOSS: [] INDICATIONS: [] DESCRIPTION OF PROCEDURE: Patient was brought into the operating room placed on the operating table in a supine position. Neck is prepped with Betadine. We removed the old trach and placed through the trach the guidewire to be able to to hold the the trach but this is a chronic trach. Then I used the 7.5 dilator from the a rhino kit to dilate over the wire. And then removed it and then did the next one up on the dilator and was able to ventilate through the dilator and help our saturation improved temporarily. After this we tried placing a 7.5 tracheostomy with balloon in place and were able to secure it in place and bring of the balloon. We started bagging the patient but anesthesia was getting a lot of resistance. And there was a lot of drainage of foamy fluid and bloody fluid through the trach. We removed the trach again and again did the dilator and try to ventilate through the dilator. Sats were in the 80s heart rate was tachycardic. At this point we started to see patient's face starting to swell and her chest as well. We did needle decompression at the both chests to try to decompress in case of pneumothoraces. Packing was still very hard and we could not bag the patient. We suctioned out the the trach as much as we could there was a gushing of fluid and blood through the trach at this point. Anesthesia attempted bronchoscopy but there was too much fluid within the trachea to be able to see anything. At this point patient went into V-tach. We still do not have a secure airway. Compressions were started. I stepped out to talk to the family. Discussed the grim prognosis at this point since the pulmonary edema is not allowing for oxygen exchange and we can not change the pulmonary edema at this time. Despite having a secure airway but we can not oxygenate the patient. After discussing with family and seeing that we can not ventilate the patient and progressively worsening of the subcutaneous emphysema despite the decompressions all efforts are are stopped. Patient at 8:35 a.m.. ABHIJIT MARTINEZ MD Dec 23, 2024 08:56
--- NOTE | 2024-12-23 23:34 | DS ---
[facility] DISCHARGE SUMMARY Date Patient Seen: Dec 23, 2024 Time of Visit: 23:28 Supervising Physician: YAHAIRA VACA MD Primary Care Physician: Satish Mcguire Outpatient Specialists: [ ] Inpatient Consults: DR Sommers, Primary team : Love PROBLEM LIST ON ADMISSION TO HOSPITAL 1. Acute on chronic hypoxic respiratory failure on admission 2. Community acquired pneumonia on admission 3. Muscular Dystrophy 4. Functional quadriplegia 5. Chronic mechanical ventilator dependent 6. Status post tracheostomy 7. Status post PEG tube 8. Underlying asthma 9. Moderate protein calorie malnutrition with cachexia HOSPITAL COURSE: 34 years old woman with underlying muscular dystrophy and asthma Patient with chronic tracheostomy and chronic PEG Admitted through the emergency department complaining of shortness of breath WBC on admission 18, 000 Preliminary diagnosis on admission: sepsis secondary to pneumonia. Patient with elevated Pro calcitonin level and leukocytosis. Her O2 saturation on admission was 93% on 8 liters O2 During her hospital course, patient was receiving IV antibiotics and remained mechanical ventilator dependent. This morning on 12/23/2024, her father was performing suctioning and noted that patient had blood tinged sputum followed by more blood. Patient started having increase airway pressure and her O2 saturation started to drop. Respiratory care team was called and the RT was able to perform a deeper suctioning and a blood tinged mucous plug was taken out however, the patient remained hypoxic and had low tidal volumes. The tracheostomy had been exchanged at bedside by her grandmother like she has done multiple times and no complications were immediately noted. At this point, patient required AMBU bag and we tried to suction but the catheter did not advance more than 2 inches into the airway at bedside and we could not pass a 2 cm scope through her mouth or nasal passages. Anesthesia was called and they were also unable to safely change the airway tube. Now with the patient in acute distress and worsening hypoxia, surgical team was called and Dr. Tsang consulted. Family agree to take patient into the OR for an exchange of a secure airway surgically. Once in the operating room, Dr. Tsang was able to successfully exchange the tracheostomy tube, but anesthesia was getting resistance and there was foamy fluid and blood coming out through the tracheostomy. The tracheostomy was removed again and the dilator was placed and anesthesia tried to ventilate through the dilator, but patient started developing edema of the face and chest consistent with subcutaneous emphysema. Needle decompression was done bilaterally and anesthesia tried to proceed with an emergent bronchoscopy. But there was too much fluid in the trachea to actually see anything. Patient became hypotensive and hypoxic and arrested in the operating table. Full ACLS and CPR were performed and the family was updated about prognosis and complications. After family was updated and explained that although a secure airway was patent, due to pulmonary edema, there was no oxygen exchange. In spite of our aggressive efforts, the patient and was pronounced on 12/23/2024 at 08:35 hrs FINAL DIAGNOSIS - Acute on chronic hypoxic respiratory failure - Severe ARDS not present on admission - Tracheostomy hemorrhage - Tracheal stenosis - Subcutaneous emphysema - Muscular dystrophy - Adult failure to thrive - Status post tracheostomy - Status post PEG tube I personally scribed for YAHAIRA VACA MD (DRSYST) on 12/23/24 at 23:34. Electronically submitted by Aroldo Mendieta ([email or web address]). YAHAIRA VACA MD Dec 23, 2024 23:34
== END 2024-12-23 08:35 | DRG 853 ==
LOC: EDH 23:21 → EDHIP 12-17 01:43 → 2CH 12-17 06:50
PROVIDERS: ADMIT Internal Medicine; ATTEND Internal Medicine
PROC: 5A1935Z Respiratory Ventilation, Less than 24 Consecutive Hours (ICD-10-PCS; 2024-12-16)
PROC: 5A12012 Performance of Cardiac Output, Single, Manual (ICD-10-PCS; 2024-12-23)
PROC: 0BP1XFZ Removal of Tracheostomy Device from Trachea, External Approach (ICD-10-PCS; 2024-12-23)
PROC: 0B7 Respiratory System, Dilation (ICD-10-PCS; principal; 2024-12-23 08:06)
DX: A41.9 Sepsis, unspecified organism (principal); J15.1 Pneumonia due to Pseudomonas; J80 Acute respiratory distress syndrome; R53.2 Functional quadriplegia; J47.0 Bronchiectasis with acute lower respiratory infection; J90 Pleural effusion, not elsewhere classified; Z99.11 Dependence on respirator [ventilator] status; N17.9 Acute kidney failure, unspecified; I46.9 Cardiac arrest, cause unspecified; G71.09 Other specified muscular dystrophies; R64 Cachexia; D50.9 Iron deficiency anemia, unspecified; J95.01 Hemorrhage from tracheostomy stoma; I47.20 Ventricular tachycardia, unspecified; E44.0 Moderate protein-calorie malnutrition; J81.1 Chronic pulmonary edema; E16.2 Hypoglycemia, unspecified; I95.9 Hypotension, unspecified; J39.8 Other specified diseases of upper respiratory tract; J98.2 Interstitial emphysema; R62.7 Adult failure to thrive; Z99.81 Dependence on supplemental oxygen; J45.909 Unspecified asthma, uncomplicated; E83.42 Hypomagnesemia; E86.0 Dehydration; E87.6 Hypokalemia; M41.9 Scoliosis, unspecified; Z99.3 Dependence on wheelchair; N20.0 Calculus of kidney; Y93.89 Activity, other specified; Y92.89 Other specified places as the place of occurrence of the external cause; Y99.8 Other external cause status; Z86.16 Personal history of COVID-19; Z79.899 Other long term (current) drug therapy; Z68.20 Body mass index [BMI] 20.0-20.9, adult
CPT/HCPCS: 36415; 36600; 71045; 71270; 74018; 74176; 74230; 76770; 80048; 80053; 80202; 81001; 82010; 82435; 82533; 82550; 82607; 82728; 82803; 82947; 82948; 83036; 83605; 83735; 83880; 84100; 84132; 84145; 84295; 84443; 84484; 84703; 85018; 85025; 85027; 85610; 85730; 86140; 86850; 86900; 86901; 86923; 87040; 87071; 87086; 87186; 87205; 87635; 87804; 87807; 92611; 92950; 93005; 94002; 94640; 94664; 96365; 96366; 96368; 99285; G0378; J0456; J0692; J1650; J1720; J2003; J2250; J2270; J2371; J2470; J2543; J2704; J3010; J3373; J3475; J3480; J3490; J7070; J7120; P9016; Q9967; A4649; J1308